=== PATIENT | female | born 1995 | race Caucasian/White ===

== ENCOUNTER 2023-11-04 13:49 | Outpatient (REF) | payer OTHER, SELFPAY ==
[2023-11-04 15:26] LABS: Internal Control Within Normal Limits; Strep A Antigen Screen Negative
== END 2023-11-04 13:50 | disposition home or self-care (01) ==
LOC: LAB 13:49
PROVIDERS: PCP Nurse Practitioner Family; Visit Provider Nurse Practitioner Family
DX: J02.9 Acute pharyngitis, unspecified (principal)
CPT/HCPCS: 87070; 87880

== ENCOUNTER 2023-12-07 20:09 | Outpatient (REF) | payer OTHER, SELFPAY ==
--- OUTSIDE RECORDS SUMMARY | 2023-12-07 20:15 | XMS_ITS | CCD ---
Author Organization [facility] Care Team Providers Care Administrative Tech Name Role Phone Gomez Card Primary Care Physician Jona Almeida Attending Unavailable ANIRUDH ., DR ROWELL Attending Unavailable ANIRUDH ., DR ROWELL Consulting Unavailable ANIRUDH ., DR ROWELL Admitting Unavailable JODI, LUZ Primary Care Unavailable BALDEMAR ., JUAN ALBERTO Consulting Unavailable BALDEMAR ., JUAN ALBERTO Admitting Unavailable BALDEMAR ., JUAN ALBERTO Attending Unavailable JODI, LUZ Primary Care Unavailable ANIRUDH ., DR ROWELL Attending Unavailable ANIRUDH ., DR ROWELL Consulting Unavailable ANIRUDH ., DR ROWELL Admitting Unavailable JODI, LUZ Primary Care Unavailable JODI, LUZ Attending Unavailable JODI, LUZ Consulting Unavailable JODI, LUZ Primary Care Unavailable JODI, LUZ Admitting Unavailable BALDEMAR ., JUAN ALBERTO Admitting Unavailable BALDEMAR ., JUAN ALBERTO Attending Unavailable JODI, LUZ Primary Care Unavailable BALDEMAR ., JUAN ALBERTO Consulting Unavailable ANIRUDH ., DR ROWELL Attending Unavailable ANIRUDH ., DR ROWELL Consulting Unavailable ANIRUDH ., DR ROWELL Admitting Unavailable JODI, LUZ Primary Care Unavailable YONG, DR KERI Garcia Consulting Unavailable ANIRUDH ., DR ROWELL Admitting Unavailable ANIRUDH ., DR ROWELL Attending Unavailable ANIRUDH ., DR ROWELL Consulting Unavailable JODI, LUZ Primary Care Unavailable BERONICA NGUYEN Consulting Unavailable EVITA TSE Consulting Unavailable BALDEMAR ., JUAN ALBERTO Admitting Unavailable GISELA TIDWELL Consulting Unavailable BALDEMAR ., JUAN ALBERTO Attending Unavailable JODI, LUZ Primary Care Unavailable BALDEMAR ., JUAN ALBERTO Consulting Unavailable BALDEMAR, JUAN ALBERTO Attending Unavailable Allergies Allergy Classification Reported Allergen(s) Allergy Type Date of Onset Reaction(s) Facility (2 sources) Sulfonamides (Antibiotic); Translations: [sulfa drugs] Drug allergy Weal (disorder) [facility] (1 source) Sulfonamides (Antibiotic) Drug allergy (disorder) 6 [facility] Repository Medications Current Medications Medication Drug Class(es) Dates Sig (Normalized) Sig (Original) brompheniramine maleate 0.4 mg/ml / dextromethorphan hydrobromide 2 mg/ml / pseudoephedrine hydrochloride 6 mg/ml oral solution (1 source) alpha-Adrenergic Agonist, Uncompetitive V-ozksft-W-aspartat e Receptor Antagonist, Sigma-1 Agonist Start: 05-29-2022 End: 06-05-2022 take 10 mL by mouth four times daily for cough and congestion Bromfed DM oral syrup 10 mL, Oral, QID for cough and congestion for 7 day(s), 280 mL, Refill(s) 0, [facility]/pharmacy #[id number], 163, cm, 05/29/22 10:46:00 EST, Height/Length Dosing, 71, kg, 05/29/22 10:46:00 EST, Weight Dosing Start Date: 05/29/22 Stop Date: 06/05/22 Status: Ordered oxybutynin chloride 5 mg oral tablet (1 source) Cholinergic Muscarinic Antagonist Start: 04-24-2020 oxybutynin 5 mg Tab See Instructions, PRN for urinary discomfort, 2 tab(s) Oral at night for bladder urgency, # 60 tab(s), Refills(s) 6, Pharmacy: [facility]/pharmacy #[id number], 162, cm, 04/24/20 10:24:00 EST, Height/Length Dosing, 71.5, kg, 04/24/20 10:24:00 EST, Weight Dosing Start Date: 04/24/20 Status: Ordered Problems Active Problems Problem Classification Problem Date Documented Date Episodic/Chronic Contraceptive and procreative management (8 sources) Encounter for sterilization; Translations: [Presence of (intrauterine) contraceptive device] Onset: 07-09-2022 Episodic Genitourinary symptoms and ill-defined conditions (1 source) Urge incontinence of urine 04-24-2020 Chronic Genitourinary symptoms and ill-defined conditions (3 sources) Increased frequency of urination; Translations: [Nocturia] 04-24-2020 Episodic Immunizations and screening for infectious disease (6 sources) Encounter for screening for infections with a predominantly sexual mode of transmission; Translations: [Encounter for screening for human papillomavirus (HPV)] Onset: 03-19-2022 Episodic Other diseases of bladder and urethra (1 source) Overactive bladder 04-24-2020 Chronic Other lower respiratory disease (1 source) Cough; Translations: [Cough, unspecified] Onset: 05-29-2022 Episodic Other upper respiratory infections (1 source) Acute upper respiratory infection; Translations: [Acute upper respiratory infection, unspecified] Onset: 05-29-2022 Episodic Substance-related disorders (2 sources) Smoker; Translations: [Nicotine dependence, other tobacco product, uncomplicated] Onset: 09-24-2022 05-29-2022 Chronic Comment on above: Added secondary to d ocumentation in Social History. Unclassified (3 sources) COUGH, UNSPECIFIED; Translations: [COUGH, UNSPECIFIED] Onset: 06-06-2022 Unclassified (1 source) CONTACT W/AND (SUSP) EXPOS COVID-19; Translations: [CONTACT W/AND (SUSP) EXPOS COVID-19] Onset: 06-06-2022 Viral infection (4 sources) Herpesviral infection of urogenital system, unspecified; Translations: [HERPESVIRAL INF UROGENITAL SYS UNS] Onset: 07-22-2022 Chronic Past or Other Problems Problem Classification Problem Date Documented Date Episodic/Chronic Other female genital disorders (5 sources) Other specified noninflammatory disorders of vagina; Translations: [OTH SPEC NONINFLAMMATORY D/O VAGINA] Onset: 03-19-2022 Episodic Other screening for suspected conditions (not mental disorders or infectious disease) (4 sources) Encounter for screening for malignant neoplasm of cervix; Translations: [ENC SCREENING MALIG NEOPLASM CERV] Onset: 03-17-2022 Episodic Ovarian cyst (1 source) Other ovarian cyst, left side; Translations: [OTHER OVARIAN CYST LEFT SIDE] Onset: 07-13-2022 Episodic Unclassified (1 source) COUGH, UNSPECIFIED; Translations: [COUGH, UNSPECIFIED] Onset: 06-01-2022 Results Test Name Value Interpretation Reference Range Facility CBC AUTO DIFFon 09-18-2022 BASO # 0.0 103/ul Normal 0.0-0.1 [facility] Comment on above: Performed By: #### C BC #### [facility] [address] [place] [address] Dr. Ventura Moe Basophils/100 WBC (Bld) 0.8 % Normal 0.2-2.0 [facility] Comment on above: Performed By: #### C BC #### [facility] [address] [place] [address] Dr. Ventura Moe EO # 0.1 103/ul Normal 0.0-0.7 [facility] Comment on above: Performed By: #### C BC #### [facility] [address] [place] [address] Dr. Ventura Moe Eosinophils/100 WBC (Bld) 1.2 % Normal 0.9-7.0 [facility] Comment on above: Performed By: #### C BC #### [facility] [address] [place] [address] Dr. Ventura Moe Erythrocyte distribution width (RBC) [Ratio] 14.0 % Normal 11.0-15.0 [facility] Comment on above: Performed By: #### C BC #### [facility] [address] [place] [address] Dr. Ventura Moe Hematocrit (Bld) [Volume fraction] 36.9 % Normal 36.0-48.0 [facility] Comment on above: Performed By: #### C BC #### [facility] [address] [place] [address] Dr. Ventura Moe Hemoglobin (Bld) [Mass/Vol] 12.4 g/dL Normal 12.0-16.0 [facility] Comment on above: Performed By: #### C BC #### [facility] [address] [place] [address] Dr. Ventura Moe IG # 0.01 10e3/ul Normal 0.00-0.03 [facility] Comment on above: Performed By: #### C BC #### [facility] [address] [place] [address] Dr. Ventura Moe IG % 0.2 % Normal 0.0-0.5 [facility] Comment on above: Performed By: #### C BC #### [facility] [address] [place] [address] Dr. Ventura Moe LYMPH # 2.0 103/ul Normal 1.2-3.8 [facility] Comment on above: Performed By: #### C BC #### [facility] [address] [place] [address] Dr. Ventura Moe Lymphocytes/100 WBC (Bld) 40.6 % Normal 20.5-60.0 [facility] Comment on above: Performed By: #### C BC #### [facility] [address] [place] [address] Dr. Ventura Moe MANUAL DIFF REQ NO Normal [facility] Comment on above: Performed By: #### C BC #### [facility] [address] [place] [address] Dr. Ventura Moe MCH (RBC) [Entitic mass] 29.2 pg Normal 26.7-34.0 [facility] Comment on above: Performed By: #### C BC #### [facility] [address] [place] [address] Dr. Ventura Moe MCHC (RBC) [Mass/Vol] 33.6 g/dL Normal 29.9-35.2 [facility] Comment on above: Performed By: #### C BC #### [facility] [address] [place] [address] Dr. Ventura Moe MCV (RBC) [Entitic vol] 87.0 fL Normal 81.0-99.0 [facility] Comment on above: Performed By: #### C BC #### [facility] [address] [place] [address] Dr. Ventura Moe MONO # 0.6 103/ul Normal 0.3-0.8 [facility] Comment on above: Performed By: #### C BC #### [facility] [address] [place] [address] Dr. Ventura Moe Monocytes/100 WBC (Bld) 12.4 % Critically high 1.7-12.0 [facility] Comment on above: Performed By: #### C BC #### [facility] [address] [place] [address] Dr. Ventura Moe NEUT # 2.2 103/ul Normal 1.4-6.5 [facility] Comment on above: Performed By: #### C BC #### [facility] [address] [place] [address] Dr. Ventura Moe Neutrophils/100 WBC (Bld) 44.8 % Normal 43.0-75.0 [facility] Comment on above: Performed By: #### C BC #### [facility] [address] [place] [address] Dr. Ventura Moe Platelet mean volume (Bld) [Entitic vol] 9.4 fL Critically low 9.5-13.5 [facility] Comment on above: Performed By: #### C BC #### [facility] [address] [place] [address] Dr. Ventura Moe PLT 266 103/ul Normal 150-450 [facility] Comment on above: Performed By: #### C BC #### [facility] [address] [place] [address] Dr. Ventura Moe RBC 4.24 106/ul Normal 4.20-5.40 [facility] Comment on above: Performed By: #### C BC #### [facility] [address] [place] [address] Dr. Ventura Moe WBC 4.9 103/ul Normal 4.0-11.0 [facility] Comment on above: Performed By: #### C BC #### [facility] [address] [place] [address] Dr. Ventura Moe PREG QUANT HCGon 09-18-2022 HCG QUANT <1 Normal [facility] Comment on above: Performed By: #### P REGQNT #### [facility] [address] [place] [address] Dr. Ventura Moe HCG RANGE SEE BELOW Normal [facility] Comment on above: Result Comment: 5-50 0.2-1 WEEK 50-500 1-2 WEEKS 100-5,000 2-3 WEEKS 500-10,000 3-4 WEEKS 1,000-50,000 4-5 WEEKS 10,000-100,000 5-6 WEEKS 15,000-200,000 6-8 WEEKS 10,000-100,000 2-3 MONTHS Performed By: #### P REGQNT #### [facility] [address] [address] [address] Ventura Moe XR CHEST 2 Von 09-07-2022 XR CHEST 2 V EXAMINATION: XR CHES T 2 V HISTORY: Electronic cigarette user ; preadmission testing COMPARISON: No relevant comparison available. FINDINGS: LUNGS: No significant pulmonary parenchymal abnormalities. VASCULATURE: No increased pulmonary vasculature. PLEURA: No pneumothorax, effusion, or pleural thickening. CARDIAC: No cardiomegaly or cardiac silhouette abnormality. MEDIASTINUM: No visible mass or adenopathy. BONES: No fracture or visible bone lesion. OTHER: Negative. IMPRESSION: 1. Normal examination. Electronically authenticated by: KERI BEACH Date: 2022-09-07 09:08 Normal [facility] CHLAMYDIA/GONOCOCCUS VINITA (SW AB/URINE/PAPon 08-03-2022 Chlamydia trachomatis, VINITA Negative Normal Negative [facility] Comment on above: Performed By: #### C T/NGNA #### [facility] [address] [place] [address] Dr. Ventura Moe Neisseria gonorrhoeae, VINITA Negative Normal Negative [facility] Comment on above: Performed By: #### C T/NGNA #### [facility] [address] [place] [address] Dr. Ventura Moe VAGINITIS/VAGINOSIS DNA PROB Charles 08-01-2022 Batool species Negative Normal Negative [facility] Comment on above: Performed By: #### V AGINT #### [facility] [address] [place] [address] Dr. Ventura Moe Gardnerella vaginalis Negative Normal Negative [facility] Comment on above: Performed By: #### V AGINT #### [facility] [address] [place] [address] Dr. Ventura Moe Trichomonas vaginalis Negative Normal Negative [facility] Comment on above: Performed By: #### V AGINT #### [facility] [address] [place] [address] Dr. Ventura Moe HERPES SIMPLEX VIRUS (HSV) C ULTUREon 07-25-2022 HSV Culture/Type Comment Abnormal [facility] Comment on above: Result Comment: Posi tive for Herpes simplex virus type-2. Typing was confirmed by monoclonal antibody microscopic immunofluorescence. Performed By: #### H SVCUL #### [facility] [address] [place] [address] Dr. Ventura Moe US PELVIS TRANSVAGon 023 US PELVIS TRANSVAG EXAMINATION: US PELV IS TRANSVAG HISTORY: IUD check COMPARISON: 08/12/2021 FINDINGS: Transvaginal images The uterus is normal in size, contour and myometrial echotexture measuring 8.6 x 3.9 x 4.6 cm., Anteverted, anteflexed. No focal myometrial mass The endometrium measures 5 mm, normal. Linear hyperechogenicity within the endometrial cavity consistent with normally positioned IUD The right ovary is normal in appearance measuring 2.6 x 1.4 x 1.7 cm. Normal color Doppler flow The left ovary measures 2.4 x 2.6 x 3.2 cm and contains an area of anechoic echogenicity measuring 2.1 cm, simple cyst. Normal color and Doppler flow IMPRESSION: Normal position of the IUD within the endometrial cavity 2.1 cm left ovarian simple cyst Electronically authenticated by: GISELA TIDWELL Date: 2022-07-09 15:34 Normal [facility] CHLAMYDIA/GONOCOCCUS VINITA (SW AB/URINE/PAPon 07-06-2022 Chlamydia trachomatis, VINITA Negative Normal Negative [facility] Comment on above: Performed By: #### V AGINT #### [facility] [address] [place] [address] Dr. Ventura Moe Neisseria gonorrhoeae, VINITA Negative Normal Negative [facility] Comment on above: Performed By: #### V AGINT #### [facility] [address] [place] [address] Dr. Ventura Moe VAGINITIS/VAGINOSIS DNA PROB Charles 07-04-2022 Batool species Negative Normal Negative [facility] Comment on above: Performed By: #### V AGINT #### [facility] [address] [place] [address] Dr. Ventura Moe Gardnerella vaginalis Positive Abnormal Negative [facility] Comment on above: Performed By: #### V AGINT #### [facility] [address] [place] [address] Dr. Ventura Moe Trichomonas vaginalis Negative Normal Negative [facility] Comment on above: Performed By: #### V AGINT #### [facility] [address] [place] [address] Dr. Ventura Moe Coding Summary.on 06-01-2022 Coding Summary. CD:[id number] Gh 0bWw+PGhlYWQ+KD3FMHLlW 35ylJHjeJ0RG4lHVY0FDCQ PSUJLOV7XLU4ztFR9XDzfL 2VybiAv PpvflKOiKW01HVz1CDB8hQ dtJAscuQ2tjIKcE7p2TaMx JK25wC39HJguMHPyUmE5Jh ZpbjsgbWFy Y5aoXhUpjWBbCfc+PHRhYm xlIHdpZHRoPScxMDAlJyBz yWqkEU5eQh0gTDSaVLGjuU xhcHNlOiBj n2lxOBHyKTtvPC9trAtgP6 SbzJY6ATNfw6c6Ju02tXF+ ARUlIES2dGqlIBepy155Fg Ynt4eyOBS1 yHLdXKutFQK2T21sd7S5UC BsWNYvYEE7sHR6iZ3psUdb tgjpG9NvkHPvCmQ1UJG0fH MqmB0hgVuv ssmemI1xHbz+J72AEV0VCT CLYK2EEzv9P0UhPugaaXB+ JK66YOOxNZ77eWDcfASxi8 hjdRb7WvZb WLHxZKW0eIzwETunp5SfUW WtH99ylOFvw0V2ZLUemQmj tQKbUhZuiDB5xS0vOAxwap gvu8zzzxax Dkvse5fyoi90dV31C73wBR uvVJNvTNX0JPMlSLBvcZbe ue0duZ5yIo0+UMlea4tcs6 pfuDc3PbKm KWMzfwCfzCfjCCR4u8KoGu 61L3IibMwcd5AcZpi4si90 iXLeg7D9iGC4PRlkNINhkW 8nLTpqZzL0 VUNrTvLbzH29nOXoLBaxRb 3etImkfIyxIL8zEHHnjoev BJNoyL3uMCGvxADlbScoKM 4wNTBpbjtm q392KeYbFSO3GZWdiLXxQ6 MdwI1rBcLjYUAeMKGjO7Ir gLMaTPvlS841OUiuSwM9OF ZyicXoM5Wy PSYmgUrcEcA6i5T6Nh4Mh7 JnhzzwOTW4IRezEDGtKcNv PjKtIjZ5W0ImJxw1DIGxpJ rtPP3wJ6Gq KSSzcmsgnqhkkTF4FWKvLZ CdqI55sUScBBfzLq7op4V0 a267ISUmBOXgmZ79Ch6jhH ogMTBwdCBU rT2xyhmle6nmmeoyJkZkMD TjNVt8PJa9PTCsgQnhSwCv PUZ7UhE7FEO0oLMrjY4rxX axictexT9w Oyc+H32sqI8vXFS8AIE7mn vvXOZiuvRhLJ36AU46T0Ra PjwvdGFibGU+PGRpdiBzdH pwAY3wHdWr d2dlx8LsSVazD4UqKOFbKB oyDbe6UKPqYRD0hUP9hZ0b EBCfXVitr3G6jNB5K8Vgwl Jjun6mb4ah VDTxHWokF96yxFYgh6Q5TU ZjbMA5LOQibZroNeGpnS87 Oyc+VJRoeAuen7TmEdbur1 xgh2koqJf9 TrOfEHTsljBghKloXYT0a1 YkVm26J46nDOdlDXVhHOKo NIXbKAQszYahrm2niE4dCf 8+PGNvbCB3 dKF7dB0zWXPpTdU6IPwyK3 86HdRliZRzRwuxq6qwe7hs cJx2NxUkSJXbxpYdcHjcQQ U5t6JjQr78 K68nJGcsNREjVSWxBCGxGW OqxOwwtn9lwX3eSp7+PC9j t3oete36fZ41wAI+PHRkIH S1gHswNMpv XPLlmK5pQJxuOrD5TYYyFg CzuO59vUInLGhnNx9bnUeo gEhcQU0fHEFaczshv663Ju Mfo8xoMKEq mUMbXLgtESD8L82bu8Q5FL NfBTBeAQW5vJM5mY7gwObk bjogbGVmdDsgdmVydGljYW veDAwmI923 IHRvcDsnPlBhdGllbnQgTm OdYPh1X3QzMzm6NBWczQac LN5rtBHdIAqeMl1ccMevmX uxKW7sOBAa aagjj867FxFtt3fhJXXmlX ZiDRllDQT6I41mz2Y5FMZx ZZYuDOG9zPR3aW8zsMyfgf ogbGVmdDsg iiXuqYqhMYlcFPvfT448AU RvcDsnPkJpcnRoIERhdGU6 OH41XC48kJGir6I1eLO6U8 BhZGRpbmct wojmiAQ0XHObCHMwhM19Gh 7mwCldZr8bFIKwUBC9LSVr fWWfG4XpkR7iQlCkLSWgXA IfM6ZxcHCy LUmzB169XHnsJxV4EWLqzn PjP2ZuPTSrnEwxBoJ3p7Z6 Jf0BB1F9FZ25TI34uGJxo6 L4qOQ5L2Om DXByssanwgrriPC1UAUwPW UgoC64Ua6syJnsCh4sHUVp QRL9WIYwjLHsG5DdrE8oDu AjMDAwMDAw J4CutMYlPHtxT323XRkmWp C4CLRiygYzI1EhBUHhpMxa CqH3b3P8Ar0HLHi6FM22YH 14dFPtj8B2 gHK2I6RoMRJoobxdogwxrA W1SDUhTDGdrW29Ys0wfNzj Dz1rFKLgLII2GGRfcUGgW3 DrqG9oMlCa QHMhAQAgO8MynWLuWEztQ5 97KDawInI0SUCpajClY1Uz PMBoiEdaHzW2n3S4Lq8VZW LfXO48CKT7 vFS6QB46GY63M0OpTtibaH FibGU+PHRhYmxlIHdpZHRo SBzxETRwWxWjzFvgIY3jJe 9yZGVyLWNv zQxiiLUtPtKce5ulMIXdYY owBB4nhJfsO9WgjTQ8MVRl n9q9Dt94H47bA3DikIK+PG PbmTZ3dUB7 yH0sTdShWqO4BQisW422Ec BqhKMkAivcr5ncv1jcoLt8 UwT0BQJkwoBnkNwnYZL9h6 JaXf45O87n IHdpZHRoPSIxNSUiIHZhbG hbnz9msA1mIa8+PGNvbCB3 yLT6qE7lMiZwHiI6TVyaH6 49InRvcCIv Fzibn2lpt8pduFz5KzOpGE SlooHmnSocFSR4u6WcEn81 Z6UlyNatj7VvUkb7pk79eL Tez5H1kRM6 Q3KfRLSkiofgcNYgnWcvZX 9qOUJybsrcSEAexI1uHKTb E2f1FqVyWmZ9ETlfR8Mjvt J3FWTgdUYf JFhsGLH0V41vj4Y2FZYfEY LwCWD4iHX9jI0nvEvnuakb bGVmdDsgdmVydGljYWwtYW rxB549QZXt aFeoRWHgkM6oDLLbwXLwxL sjAE3eQMWjtvtoGbPFBDVA LLUSHLVKJgl4P1LnUzh8UZ KweFstDO5b tUWtHIzxQb7ihEmbiCfbUR 7pOVDodwhgTCQbsI5qVOGx lVMbfRnxCN0wERUncmdhk9 12HnNdMQM8 CBYwzYEpR4XpfU2eVaIuJI PsWZXcD8OgwQGmNGtvQ678 ASdiSzE1VTSjxeQbI6TvSQ FsaWduOiB0 k9O9Jk4kHj5mSS9eIRpeHI 42KT42eBLpw7C4cSH8E4Qk QYFzwmmcufjyfME7KVDwCZ CpuN66cSSe ZQqeMr3tp3U0y990GUXzWD ExnG22Iu3ceHpgGMOmtBTQ qQ7jntibi3xqacveXjVuET VkUNu6WKq6 XLIceOfnLtFgWDM1ZhT3MA C9zHLczP9ffOipghpvbV9q Oyc+WmogNJGaifR7Q3OsEs b8JWDvmAeg OF0imJUeZIsiSt6rrWomxV xwGV8pWCYqbzxwPRUomL5z ADVmrXYplIsyGG9xKOFxky wbg284CuGp OUJ7BKBwgMJdM3EwgM2eNu ZsTELwLVLdT8QvwQHgEBxf U518SYkcZlU4WFRxagQjA1 FsLWFsaWdu LlH9k9J5Vj2LGQ0bgJF6Y9 FrMtt2AZCcfRmaGI9veWMh FRcqQu5mcAmtwQlfEQ2uKW BpbjtwYWRk bF1vXQEanUOqiHmnHD1gWZ Xvgfmir160NfUzSQZ3VTCe gNGfP7EkoZ5fMrRtOWFqIC OtJ5UenWWv HNlbT419SBdiApB8VYIfsg UiS9FlVRSisCbmGzE9t3A1 Ew7KqKXwX5XcA6l9H6ZzRq wvdHI+PC90 WLMnIB59uARbyMMtt0sljN x5NxRlCKJbNPF7sQdoEIia q0PeUZFqV59mnEJvx9Y8UD NvbGxhcHNl GuDxaMC5uY9wYOcnkqgvf3 ymspntUcfnv2znfp59pU62 V87dNKjpUEEdTIXyQSXdNV ElhJijwh7j wS6mNh4+PIZpyCJ8sRN3kW 1kRtDuUaS4AKshJ767PjIy wSEkBlwco1ayu9rvyRt6Yz IwJSIgdmFs jMklSIW9o0SdLt01Z80yYO dpZHRoPSIyMCUiIHZhbGln fx8drX0lHw5+FZ7nn7hbte 85tM97pKU+ CWBdXMH3gIfvJYbwBAVlvK 6jCLhhVwY6IFXbAnQkiB57 aQWnSMlqXd8meXegeJnsRT 4wNTBpbjtm w367BoSbm7suCGPcpSItAO tdWFA7W94gy6K7YGTqITGd UZP3qVA6xD4fnGjgvibsnQ VmdDsgdmVy pGixAArmLApvM404IYPzqU dyTkOtiLVvG1dblmPMYK4x OjwvdGQ+OZIqDKH8aMdsWR uiXPDkpN0h BFKbK9x2RoCjQyT9EWmdT5 XkboC0YZBheRAqPTRrlGAU eO2uvznzp0jtshlzTmYkJW CkLQi4RFl4 ZKZeeSafRyZbFFH5MvF9ZO U8iADiqZ0lvXiogxvbnZ6k Oyc+RklOOjwvdGQ+PHRkIH K4bMjmMZqt IFFvyX5rOGEmG0l9RsLaTq Q4LPmtR5HicrD7NFOmrILd FKJxgGKPmZ8aonhvr1phyd ogIzAwMDAw DFk2QZd1WINvxZzuXeOiDU M2XqB4RKF2tWKdlA1kfEah adimnH8zCrj+TVJOOjwvdG Q+PHRkIHN0 hOhaZDnlOOQboD6gDOMuY7 p6BnPyDzD2XHndH8EysoS6 WYKviUWpAHJwtZBAoQ4bhp jfp1atuxqa TyEvTFVnGWl6JWk7GTHmrW gxNfBfJQO1NcQ3WXC2rDHb yP6giLmatvbfiF0kHob+UG W0LNW5ZE23 KL86V1KhWoeuvAJeyYX+PH RhYmxlIHdpZHRoPScxMDAl YoVfuBspYZ2uRa4cFMQtHZ NvbGxhcHNl OiBj (more content not included)... Normal [facility] Covid-19 PCR ([facility])on 05-21 SARS-CoV-2 (COVID-19) RNA VINITA+probe Ql (Unsp spec) Not detected Normal NOT DETECTED [facility] Comment on above: Result Comment: This test is not yet approved or cleared by the [place] FDA. When there are no FDA-approved or cleared tests available, and other criteria are met, FDA can make tests available under an emergency access mechanism called an Emergency Use Authorization (EUA). The EUA for this test is supported by the [employer] of Health and Human Service's (HHS's) declaration that circumstances exist to justify the emergency use of in vitro diagnostics for the detection and/or diagnosis of the virus that causes COVID-19. This EUA will remain in effect (meaning this test can be used) for the duration of the COVID-19 declaration justifying emergency of IVDs, unless it is terminated or revoked by FDA (after which the test may no longer be used). When diagnostic testing is negative, the possibility of a false negative should be considered in the context of a patient's recent exposures and the presence of clinical signs and symptoms consistent with SARS-CoV-2. Performed By: #### [facility] #### [facility] [address] [place] [address] Dr. Ventura Moe ED Note-Physicianon 06-01-20 ED Note-Physician Basic Information Time Seen: Alejandro MCGINNISSkip 05/29/2022 10:42 Chief Complaint Mom reports congestion and coughing up phlegm since last night. Denies fever. History of Present Illness 26-year-old female comes to the ED for evaluation of cough and congestion. She presents with her children have similar symptoms. She states they were seen at [facility] recently where one of them has a positive for influenza. They have had continued cough. No fevers. No nausea or vomiting. No acute chest pain or shortness of breath. No prior treatments. Review of Systems A 10 point review of systems is negative except as noted above. Medical and Surgical History: Reviewed and noted Social history: Lives at home Tobacco: Current Physical Exam Vitals & Measurements T: 36.7 ?C(Oral) HR: 95(Peripheral) RR: 18 BP: 123/82 SpO2: 98% HT: 163 cm WT: 71 kg BMI: 26.72 Nurses notes and vital signs reviewed and patient is not hypoxic. General: Well-appearing, does not appear ill Skin: Warm, dry. Head: Atraumatic. Neck: No JVD. Eye: Normal conjunctiva. Ears, Nose, Mouth, and Throat: Sinus congestion, no difficulty with speaking or swallowing Cardiovascular: Not tachycardic Chest wall: Respiratory: Respirations are nonlabored. Back: Normal range of motion. Musculoskeletal: Normal ROM with no gross deformity. Gastrointestinal: Urological: Neurological: Awake and alert. No focal deficits. Follows commands. Psychiatric: Cooperative. Medical Decision Making Patient overall well-appearing and nontoxic exam. Chest x-ray with no acute infiltrates. Patient with likely influenza. Treated with Bromfed-DM. Discharged home with PCP follow-up. Patient was encouraged to return to the ED if symptoms worsen or change. Assessment/Plan Cough (R05.9: Cough, unspecified) Upper respiratory infection (J06.9: Acute upper respiratory infection, unspecified) Orders: brompheniramine/dextro methorphan/PSE, 10 mL, Oral, QID for cough and congestion for 7 day(s), 280 mL, Refill(s) 0, [id number], 163, cm, 05/29/22 10:46:00 EST, Height/Length Dosing, 71, kg, 05/29/22 10:46:00 EST, Weight Dosing XR Chest 2 Views Disposition Plan Patient Discharge Condition Disposition: Discharged home Condition: Improved and stable Counseled: Patient and/or family were counseled to workup, results, treatment plan and follow-up recommendations Discharge Prescription List Prescriptions Bromfed DM oral syrup, 10 mL, Oral, QID, PRN Follow-up With When Contact Information Gomez Card In 3 days 06/01/2022 EST [address] [id number]- Business (1) Additional Instructions: Patient Education Upper Respiratory Infection, Adult Influenza, Adult Attestation Patient seen and evaluated by the physician pharmacy technician assistant. Attending physician was present in the emergency department and supervised care. This visit was performed by both the physician and an APC. I performed all aspects of the MDM as documented. This report was transcribed using voice recognition software. Every effort was made to ensure accuracy, however, inadvertently computerized advanced clinical specialist mistakes may be present. Appropriate healthcare PPE was used in evaluating this patient. The patient was placed in a mask. The healthcare provider was wearing mask, gloves, and utilizing proper hand hygiene. All equipment was properly cleansed. Problem List/Past Medical History Ongoing Frequency of urination Nocturia Overactive bladder Smoker Urge incontinence Weak urine stream Historical No qualifying data Procedure/Surgical History of child, Hemorrhoids. Medications Inpatient No active inpatient medications Home Bromfed DM oral syrup, 10 mL, Oral, QID, PRN oxybutynin 5 mg Tab, See Instructions, PRN, 6 refills Allergies sulfa drugs (Hives) Social History Alcohol - Denies Alcohol Use, 05/29/2022 Substance Abuse - Denies Substance Abuse, 05/29/2022 Tobacco - High Risk, 05/29/2022 5-9 cigarettes (between 1/4 to 1/2 pack)/day in last 30 days Tobacco Use:. Yes, 04/24/2020 Family History Arthritis: Father. Heart disease: Grandparent. Hyperlipidemia: Father and Grandparent. Migraine: Mother and Father. Primary malignant neoplasm of bone: Uncle. Primary malignant neoplasm of lung: Grandparent. Stroke: Uncle. Lab Results No qualifying data available. Diagnostic Results XR Chest 2 Views 05/29/22 11:38:43 NEGATIVE: No infiltrate, mass or other acute cardiopulmonary abnormality Read By: Skip Allen PA-C 05/29/22 11:38:22 IMPRESSION: NO ACTIVE LUNG DISEASE. EXAM: XR Chest 2 Views CLINICAL HISTORY: Shortness of breath Cough COMPARISONS: None FINDINGS: The heart, mediastinum and pulmonary vasculature are within normal limits. Visualized lung tyler are clear. Bones unremarkable. Signed By: Ashly BELTRAN, Ruel [facility] Comment on above: Result Comment: Elec tronically Signed By: Skip Allen PA-C\.br\Date and Time Signed: 05/29/22 11:47 EST\.br\Electronically Co-Signed By: Joan Almeida DO\.br\Date and Time Co-Signed: 06/01/22 07:33 EST INFLUENZA A AND B AGon 06-01 INFLUBNEGH SEE BELOW Normal [facility] Comment on above: Result Comment: Nega tive for Flu B protein antigen. Infection due to Flu B cannot be ruled out. Flu B antigen in the sample may be below the detection limit of the test. Performed By: #### V AGINT #### [facility] [address] [place] [address] Dr. Ventura Moe INFLUENZA A AG Positive Abnormal NEGATIVE SEE COMMENT [facility] Comment on above: Performed By: #### V AGINT #### [facility] [address] [place] [address] Dr. Ventura Moe INFLUENZA B AG Negative Normal NEGATIVE SEE COMMENT [facility] Comment on above: Performed By: #### V AGINT #### [facility] [address] [place] [address] Dr. Ventura Moe INFLUPOSH SEE BELOW Normal [facility] Comment on above: Result Comment: NOTE : Live attenuated influenzae vaccine viruses can cause a positive result for a rapid influenza diagnostic test if administered up to 7 days prior to rapid testing. Performed By: #### V AGINT #### [facility] [address] [place] [address] Dr. Ventura Moe INTERNAL CONTROLS Within Normal Limits Normal Wi thin Normal Limits [facility] Comment on above: Performed By: #### V AGINT #### [facility] [address] [place] [address] Dr. Ventura Moe Consent for Treatmenton Consent for Treatment [id number] 0CD:127 Normal [facility] Discharge Instructionson Discharge Instructions [id number] 0CD:127 Normal [facility] ED Clinical Summaryon 2021 ED Clinical Summary [address] [address] ED Clinical Summary Person Information [facility]: [facility] Age[facility] 26 Years : 1995 Sex: Female Language: Slovak PCP: Gomez Card MD Marital Status: Single Visit Id: Visit Reason: Cough; Sinus Pain/Congestion; SICK Speciality: Acuity: 4 Enc Type: Emergency Med Service: Emergency Arrival: 05/29/2022 10:40:59 Discharge: 05/29/2022 12:00:23 LOS: 000 01:20 Checkin: 05/29/2022 10:40:59 Checkout: 05/29/2022 12:00:23 Dispo Type: Home (Routine DC) EVENTS: Event Name Event Status Request Date/Time Start Date/Time Complete Date/Time Arrive Complete 05/29/2022 10:40:59 05/29/2022 10:40:59 05/29/2022 10:40:59 Document Home Meds Request 05/29/2022 10:40:59 Triage Complete 05/29/2022 10:40:59 05/29/2022 10:46:14 05/29/2022 10:46:14 Dr Exam Complete 05/29/2022 10:42:08 05/29/2022 10:42:08 05/29/2022 10:42:08 Registration Complete 05/29/2022 10:42:08 05/29/2022 10:46:46 05/29/2022 11:00:08 Bed Assign Complete 05/29/2022 10:46:46 05/29/2022 10:46:46 05/29/2022 10:46:46 RN Exam Complete 05/29/2022 10:46:46 05/29/2022 10:55:24 05/29/2022 10:55:24 Dr Exam Complete 05/29/2022 10:48:46 05/29/2022 10:48:46 05/29/2022 10:48:46 X-Ray Complete 05/29/2022 10:49:04 05/29/2022 11:00:54 05/29/2022 11:19:19 Reg Complete Request 05/29/2022 11:00:08 Reg Bed Request Complete 05/29/2022 11:00:08 05/29/2022 11:00:08 05/29/2022 11:00:08 Wet Read Request 05/29/2022 11:19:19 Discharge Complete 05/29/2022 11:41:02 05/29/2022 12:00:28 05/29/2022 12:00:28 Transfer Complete 05/29/2022 12:00:28 05/29/2022 12:00:28 05/29/2022 12:00:28 ADDRESS: [address] [place] [address] DR SHAYLA Mckay [facility] [phone] PHYS DOC NOTES: MEDICAL INFORMATION: Prescriptions Given: New Medications [id number], [address], [place] [id number], [phone] brompheniramine/dextro methorphan/PSE (Bromfed DM oral syrup) 10 Milliliter By Mouth 4 times a day as needed for cough and congestion for 7 Days. Refills: 0. Medications to Continue with No Changes Other Medications oxybutynin (oxybutynin 5 mg Tab) 2 tab(s) Oral at night for bladder urgency; as needed for urinary discomfort. Refills: 6. PATIENT EDUCATION INFORMATION: Instructions: Upper Respiratory Infection, Adult; Influenza, Adult Follow up: With: Address: When: Gomez Card [facility] [facility], [place] [address] Business (1) In 3 days 06/01/2022 DIAGNOSIS: Cough; Upper respiratory infection Normal [facility] ED Patient Education Noteon 05-29-2022 ED Patient Education Note Infectious Disease Upper Respiratory Infection, Adult An upper respiratory infection (URI) is a common viral infection of the nose, throat, and upper air passages that lead to the lungs. The most common type of URI is the common cold. URIs usually get better on their own, without medical treatment. What are the causes? A URI is caused by a virus. You may catch a virus by: ? Breathing in droplets from an infected person's cough or sneeze. ? Touching something that has been exposed to the virus (contaminated) and then touching your mouth, nose, or eyes. What increases the risk? You are more likely to get a URI if: ? You are very young or very old. ? It is rhonda or winter. ? You have close contact with others, such as at a daycare, school, or health care facility. ? You smoke. ? You have long-term (chronic) heart or lung disease. ? You have a weakened disease-fighting (immune) system. ? You have nasal allergies or asthma. ? You are experiencing a lot of stress. ? You work in an area that has poor air circulation. ? You have poor nutrition. What are the signs or symptoms? A URI usually involves some of the following symptoms: ? Runny or stuffy (congested) nose. ? Sneezing. ? Cough. ? Sore throat. ? Headache. ? Fatigue. ? Fever. ? Loss of appetite. ? Pain in your forehead, behind your eyes, and over your cheekbones (sinus pain). ? Muscle aches. ? Redness or irritation of the eyes. ? Pressure in the ears or face. How is this diagnosed? This condition may be diagnosed based on your medical history and symptoms, and a physical exam. Your health care provider may use a cotton swab to take a mucus sample from your nose (nasal swab). This sample can be tested to determine what virus is causing the illness. How is this treated? URIs usually get better on their own within 7?10 days. You can take steps at home to relieve your symptoms. Medicines cannot cure URIs, but your health care provider may recommend certain medicines to help relieve symptoms, such as: ? Eaya-uuk-ohybnne cold medicines. ? Cough suppressants. Coughing is a type of defense against infection that helps to clear the respiratory system, so take these medicines only as recommended by your health care provider. ? Fever-reducing medicines. Follow these instructions at home: Activity ? Rest as needed. ? If you have a fever, stay home from work or school until your fever is gone or until your health care provider says you are no longer contagious. Your health care provider may have you wear a face mask to prevent your infection from spreading. Relieving symptoms ? Gargle with a salt-water mixture 3?4 times a day or as needed. To make a salt-water mixture, completely dissolve ??1 tsp of salt in 1 cup of warm water. ? Use a cool-mist humidifier to add moisture to the air. This can help you breathe more easily. Eating and drinking ? Drink enough fluid to keep your urine pale yellow. ? Eat soups and other clear broths. General instructions ? Take dhst-wej-wxyrugv and prescription medicines only as told by your health care provider. These include cold medicines, fever reducers, and cough suppressants. ? Do not use any products that contain nicotine or tobacco, such as cigarettes and e-cigarettes. If you need help quitting, ask your health care provider. ? Stay away from secondhand smoke. ? Stay up to date on all immunizations, including the yearly (annual) flu vaccine. ? Keep all follow-up visits as told by your health care provider. This is important. How to prevent the spread of infection to others ? URIs can be passed from person to person (are contagious). To prevent the infection from spreading: ? Wash your hands often with soap and water. If soap and water are not available, use hand tarring machine operator. ? Avoid touching your mouth, face, eyes, or nose. ? Cough or sneeze into a tissue or your sleeve or elbow instead of into your hand or into the air. Contact a health care provider if: ? You are getting worse instead of better. ? You have a fever or chills. ? Your mucus is brown or red. ? You have yellow or brown discharge coming from your nose. ? You have pain in your face, especially when you bend forward. ? You have swollen neck glands. ? You have pain while swallowing. ? You have white areas in the back of your throat. Get help right away if: ? You have shortness of breath that gets worse. ? You have severe or persistent: ? Headache. ? Ear pain. ? Sinus pain. ? Chest pain. ? You have chronic lung disease along with any of the following: ? Wheezing. ? Prolonged cough. ? Coughing up blood. ? A change in your usual mucus. ? You have a stiff neck. ? You have changes in your: ? Vision. ? Hearing. ? Thinking. ? Mood. Summary ? An upper respiratory infection (URI) is a common infecti (more content not included)... Normal [facility] ED Patient Summaryon 022 ED Patient Summary [address] [address] Patient Discharge Instructions Person Information Name: MICHAEL SEQUEIRA Age: 26 Years Arrival Date: 05/29/2022 10:40:59 Discharge Diagnosis: Cough; Upper respiratory infection Primary Care Physician: Gomez Card MD Provider Information Primary Provider: Jona Almeida DO [address] [employer] [address] Sql Developer:Skip Allen PA-C The exam and treatment you received in the Emergency Department were for an urgent problem and are not intended as complete care. It is important that you follow up with a doctor, nurse practitioner, or physician?s pharmacy technician assistant for ongoing care. If your symptoms become worse or you do not improve as expected and you are unable to reach your usual health care provider, you should return to the Emergency Department. We are available 24 hours a day. MICHAEL SEQUEIRA has been given the following list of patient education materials, prescriptions and follow-up instructions: Follow-up Instructions: With: Address: When: Gomez Savageasad [address] [place] [address], [place] [address] Business (1) In 3 days 06/01/2022 In the event that this physician does not participate in your insurance network, please consult with your insurance company to find a nearby participating provider. Patient Education Materials: Upper Respiratory Infection, Adult; Influenza, Adult A MESSAGE TO ALL PATIENTS REGARDING OPIOIDS PRESCRIPTION OPIOIDS: WHAT YOU NEED TO KNOW Prescription opioids can be used to help relieve ztjmsseo-hu-knqrbb pain and are often prescribed following a surgery or injury, or for certain health conditions. These medications can be an important part of the treatment but also come with serious risks. It is important to work with your healthcare provider to make sure you are getting the safest, most effective care. WHAT ARE THE RISKS AND SIDE EFFECTS OF OPIOID USE? Prescription opioids carry serious risks of addiction and overdose, especially with prolonged use. An opioid overdose, often marked by slowed breathing, can cause sudden . The use of prescription opioids can have a number of side effects as well, even when taken as directed: ? Tolerance?meaning you might need to take more of the medication for the same pain relief ? Physical dependence?meaning you have symptoms of withdrawal when a medication is stopped ? Increased sensitivity to pain ? Constipation ? Nausea, vomiting, and dry mouth ? Sleepiness and dizziness ? Confusion ? Depression ? Low levels of testosterone that can result in lower sex drive, energy, and strength ? Itching and sweating RISKS ARE GREATER WITH: ? History of drug misuse, substance use disorder, or overdose ? Mental health conditions (such as depression or anxiety) ? Sleep apnea ? Older age (65 years and older) ? Avoid alcohol while taking prescription opioids. Also, unless specifically advised by your health care provider, medications to avoid include: ? Benzodiazepines (such as Xanax or Valium) ? Muscle relaxants (such as Soma or Flexeril) ? Hypnotics (such as Ambien or Lunesta) ? Other prescription opioids KNOW YOUR OPTIONS Talk to your health care provider about ways to manage your pain that don?t involve prescription opioids. Some of these options may actually work better and have fewer risks and side effects. Options may include: ? Pain relievers such as acetaminophen, ibuprofen, and naproxen ? Some medication that are also used for depression or seizures ? Physical therapy and exercise ? Cognitive behavioral therapy, a psychological, goal-directed approach, in which patients learn how to modify physical, behavioral, and emotional triggers of pain and stress. IF YOU ARE PRESCRIBED OPIOIDS FOR PAIN: ? Never take opioids in greater amounts or more often than prescribed. ? Follow up with your primary health care provider. o Work together to create a plan on how to manage your pain. o Talk about ways to help manage your pain that don?t involve prescription opioids. o Talk about any and all concerns and side effects. ? Help prevent misuse and abuse o Never sell or share prescription opioids. o Never use another person?s prescription opioids. ? Store prescription opioids in a secure place and out of reach of others (this may include visitors, children, friends, and family). ? Safely dispose of unused prescription opioids: Find your community drug take-back program or your pharmacy mail-back program, or flush them down the toilet, following guidance from the Food and Drug Administration (www.fda.gov/Drugs/Res ourcesForYou). ? Visit www.cdc.gov/drugoverdo se to learn about the risks of opioids abuse and overdose. ? If you believe you may be struggling with addiction, tell your health post acute care nurse practitioner and ask for guidance or call [facility] Help (more content not included)... Normal [facility] XR Chest 2 Viewson 2 XR Chest 2 Views Exam Date/Time: 05/29/2022 11:19 EST Reason for Exam: Cough Report IMPRESSION: NO ACTIVE LUNG DISEASE. EXAM: XR Chest 2 Views CLINICAL HISTORY: Shortness of breath Cough COMPARISONS: None FINDINGS: The heart, mediastinum and pulmonary vasculature are within normal limits. Visualized lung tyler are clear. Bones unremarkable. FINAL REPORT Dictated: 05/29/2022 11:35 am Ruel Limon MD Signed (Electronic Signature): 05/29/2022 11:35 am Signed by: Ruel Limon MD Transcribed by: SISSY Technologist: JESUS Normal [facility] PAP ACOG PANEL 2: 21 to 29on 03-25-2022 . . Normal [facility] Comment on above: Performed By: #### [id number] #### [facility] [address] [address] [address] Ventura Moe Age Gdln ACOG Testing - [facility] Comment on above: Performed By: #### 4 [id number] #### [facility] [address] [address] [address] Ventura Moe DIAGNOSIS: Comment [facility] Comment on above: Result Comment: NEGA TIVE FOR INTRAEPITHELIAL LESION OR MALIGNANCY. Performed By: #### 4 [id number] #### [facility] [address] [address] [address] Ventura Moe Methodology: Comment [facility] Comment on above: Result Comment: This liquid based ThinPrep(R) pap test was screened with the use of an image guided system. Performed By: #### 4 [id number] #### [facility] [address] [place] [address] Dr. Ventura Moe Note: Comment Normal [facility] Comment on above: Result Comment: The Pap smear is a screening test designed to aid in the detection of premalignant and malignant conditions of the uterine cervix. It is not a diagnostic procedure and should not be used as the sole means of detecting cervical cancer. Both false-positive and false-negative reports do occur. . Performed By: #### 4 [id number] #### [facility] [address] [place] [address] Dr. Ventura Moe Performed by: Comment Normal [facility] Comment on above: Result Comment: Joshua Callahan, Magnetic Tester (ASCP) Performed By: #### 4 [id number] #### [facility] [address] [place] [address] Dr. Ventura Moe Reflex Criteria: Comment Normal [facility] Comment on above: Result Comment: The HPV DNA reflex criteria were not met with this specimen result therefore, no HPV testing was performed. . Performed By: #### 4 [id number] #### [facility] [address] [place] [address] Dr. Ventura Moe Specimen adequacy: Comment Normal [facility] Comment on above: Result Comment: Sati sfactory for evaluation. Endocervical and/or squamous metaplastic cells (endocervical component) are present. Performed By: #### 4 [id number] #### [facility] [address] [place] [address] Dr. Ventura Moe CHLAMYDIA/GONOCOCCUS VINITA (SW AB/URINE/PAPon 03-20-2022 Chlamydia trachomatis, VINITA Negative Normal Negative [facility] Comment on above: Performed By: #### C T/NGNA #### [facility] [address] [place] [address] Dr. Ventura Moe Neisseria gonorrhoeae, VINITA Negative Normal Negative [facility] Comment on above: Performed By: #### C T/NGNA #### [facility] [address] [place], [place] [id number] Dr. Ventura Moe VAGINITIS/VAGINOSIS DNA PROB Charles 03-19-2022 Batool species Negative Normal Negative [facility] Comment on above: Performed By: #### V AGINT #### [facility] [address] [place] [address] Dr. Ventura Moe Gardnerella vaginalis Positive Abnormal Negative [facility] Comment on above: Performed By: #### V AGINT #### [facility] [address] [address] [address] Ventura Moe Trichomonas vaginalis Negative Normal Negative [facility] Comment on above: Performed By: #### V AGINT #### [facility] [address] [place] [address] Dr. Ventura Moe Vital Signs Date Time Vital Sign Value Performing Clinician Faci lity 05-29-2022 10:44-0500 Body temperature 98.06 [degF] Jona [employer] [facility] 05-29-2022 10:44-0500 Diastolic blood pressure 82 mm[Hg] [email or web address] [facility] 05-29-2022 10:44-0500 Heart rate 95 /min [email or web address] [facility] 05-29-2022 10:44-0500 Respiratory rate 18 /min [email or web address] [facility] 05-29-2022 10:44-0500 SaO2% (BldA) [Mass fraction] 98 % [email or web address] [facility] 05-29-2022 10:44-0500 Systolic blood pressure 123 mm[Hg] Jona [employer] [facility] Encounters Encounter Date Encounter Type Care Provider Facility Start: 11-03-2023 End: 11-03-2023 ambulatory JUAN ALBERTO MCDERMOTT Not Available Start: 09-18-2022 End: 09-18-[address] SORIN AGUILAR . Facility: Start: 09-12-2022 Encounter for preprocedural respiratory examination DR SORIN AGUILAR . [facility] Start: 09-07-2022 End: 09-08-[address] SORIN AGUILAR . Facility:[facility] Start: 09-07-2022 End: 09-08-2022 Encounter for preprocedural respiratory examination DR SORIN AGUILAR . Facility:[facility] Start: 07-30-2022 End: 07-30-2022 ambulatory JUAN ALBERTO MCDERMOTT . Facility:[facility] Start: 07-22-2022 End: 07-22-[address] SORIN AGUILAR . Facility:[facility] Start: 07-09-2022 End: 07-10-2022 ambulatory JUAN ALBERTO MCDERMOTT . Facility:[facility] Start: 07-02-2022 End: 07-02-2022 ambulatory JUAN ALBERTO MCDERMOTT . Facility: Start: 06-01-2022 End: 06-01-2022 ambulatory LUZ ZAPATA Facility: Start: 05-29-2022 End: 05-29-2022 Emergency department patient visit Jona Almeida Facility[place] [place] Start: 05-29-2022 End: 05-29-2022 Emergency department patient visit Jona Almeida [facility] Start: 03-17-2022 End: 03-17-[address] SORIN AGUILAR . Facility: Procedures Date Procedure Procedure Detail Performing Clinician of child (finding) Hakeem Almeida Hemorrhoids (disorder) Jona Almeida Payers Date Payer Category Payer Unknown [id number] 2.16.8 [id number] 1995 Unknown [id number] 2.16.84 [id number] 1995 Unknown [id number] 2.16.84 [id number] 1995 Unknown [id number] 2.16.84 [id number] 1993 Unknown [id number] 2.16.84 [id number] 1993 Unknown [id number] 2.16.84 [id number] 1993 Unknown [id number] 2.16.84 [id number] 1993 Unknown [id number] 2.16.84 [id number] 1993 Unknown [id number] 2.16.84 [id number] 1993 Unknown [id number] 2.16.84 [id number] 1959 Unknown [id number] Social History Date Type Detail Facility Start: 04-24-2020 Tobacco smoking status Light t obacco smoker (finding) [facility] Sex Assigned At Female [facility] Functional Status Date Assessment Result Facility 05-29-2022 Functional Status N/A [facility] Clinical Note 09-18-2022 Note Date & Type Note Facility 09-18-2022 Note OPERATIVE NOTE OPERATION DATE: 09/18/2022 PROCEDURE: Robotic assisted bilateral laparoscopic salpingectomy. PREOPERATIVE DIAGNOSIS: Desires permanent sterilization, multiparity. POSTOPERATIVE DIAGNOSIS: Desires permanent sterilization, multiparity. ANESTHESIA: General. SURGEON: Sorin Aguilar D.O. LOCKSTITCH FRONT EDGE TAPE SEWER: DAMIAN Pinto URINE OUTPUT: Yellow and clear. BLOOD LOSS: 5 mL. SPECIMEN: Bilateral tubes. FINDINGS: Normal appearing ovaries, uterus and tubes. PROCEDURE: The patient was taken back to the OR where she was prepped and draped in the normal sterile fashion after being placed in the dorsal lithotomy position, after being placed under general anesthesia without difficulty. A wet sponge stick was placed into the patient's vagina. Attention was then turned to the patient's abdomen, where a scalpel was used to make a small infraumbilical incision. The S retractors were then used to dissect the underlying layers until the fascia could be seen. The fascia was then grasped with Mariana clamps and tented up. A knife was then used to make a small incision to the fascia. The muscle was identified, at that time two sutures of #0 Vicryl on a GI needle was then used and placed through the fascia. The peritoneum was then identified and entered bluntly. The 10-4 Nadira was then placed into the patient's abdomen. This was confirmed with direct visualization of the bowel, using the laparoscope. The patient's abdomen was then insufflated using approximately 4 liters of CO2 gas. Survey of the patient's abdomen demonstrated normal appearing ovaries, uterus and tubes. A second and third lateral port, which was 7-8 in size and 5 mm in size, was then placed laterally after incision was made in the skin under direct visualization. The patient's tube on the patient's right side was identified. The tube was then tented up using a grasper. The LigaSure was used to transect and coagulate the mesosalpinx from the fimbriated end to the insertion at the uterus; the tube was amputated and removed in its entirety. Excellent hemostasis was noted. This was performed on the contralateral side as well. The lateral ports were then removed under direct visualization with excellent hemostasis. The abdomen was desufflated. All instruments were removed from the patient's abdomen. The fascia was closed using the #0 Vicryl on GI needle. The skin was closed using 4-0 Vicryl subcuticularly. All instruments were removed from the patient's vagina as well. The patient was taken out of the dorsal lithotomy position and placed in the supine position and taken to recovery in stable condition. Sponge, lap and needle counts were correct x2. [facility] Discharge instructions 05-29-2022 Note Date & Type Note Facility 05-29-2022 Hospital Discharg e instructions Patient Education 05/29/2022 12:00:28 Upper Respiratory Infection, Adult Upper Respiratory Infection, Adult An upper respiratory infection (URI) is a common viral infection of the nose, throat, and upper air passages that lead to the lungs. The most common type of URI is the common cold. URIs usually get better on their own, without medical treatment. What are the causes? A URI is caused by a virus. You may catch a virus by: Breathing in droplets from an infected person's cough or sneeze. Touching something that has been exposed to the virus (contaminated) and then touching your mouth, nose, or eyes. What increases the risk? You are more likely to get a URI if: You are very young or very old. It is rhonda or winter. You have close contact with others, such as at a daycare, school, or health care facility. You smoke. You have long-term (chronic) heart or lung disease. You have a weakened disease-fighting (immune) system. You have nasal allergies or asthma. You are experiencing a lot of stress. You work in an area that has poor air circulation. You have poor nutrition. What are the signs or symptoms? A URI usually involves some of the following symptoms: Runny or stuffy (congested) nose. Sneezing. Cough. Sore throat. Headache. Fatigue. Fever. Loss of appetite. Pain in your forehead, behind your eyes, and over your cheekbones (sinus pain). Muscle aches. Redness or irritation of the eyes. Pressure in the ears or face. How is this diagnosed? This condition may be diagnosed based on your medical history and symptoms, and a physical exam. Your health care provider may use a cotton swab to take a mucus sample from your nose (nasal swab). This sample can be tested to determine what virus is causing the illness. How is this treated? URIs usually get better on their own within 7 10 days. You can take steps at home to relieve your symptoms. Medicines cannot cure URIs, but your health care provider may recommend certain medicines to help relieve symptoms, such as: Njez-rwc-okmrkyy cold medicines. Cough suppressants. Coughing is a type of defense against infection that helps to clear the respiratory system, so take these medicines only as recommended by your health care provider. Fever-reducing medicines. Follow these instructions at home: Activity Rest as needed. If you have a fever, stay home from work or school until your fever is gone or until your health care provider says you are no longer contagious. Your health care provider may have you wear a face mask to prevent your infection from spreading. Relieving symptoms Gargle with a salt-water mixture 3 4 times a day or as needed. To make a salt-water mixture, completely dissolve 1 tsp of salt in 1 cup of warm water. Use a cool-mist humidifier to add moisture to the air. This can help you breathe more easily. Eating and drinking Drink enough fluid to keep your urine pale yellow. Eat soups and other clear broths. General instructions Take vhgs-krv-ytrceyn and prescription medicines only as told by your health care provider. These include cold medicines, fever reducers, and cough suppressants. Do not use any products that contain nicotine or tobacco, such as cigarettes and e-cigarettes. If you need help quitting, ask your health care provider. Stay away from secondhand smoke. Stay up to date on all immunizations, including the yearly (annual) flu vaccine. Keep all follow-up visits as told by your health care provider. This is important. How to prevent the spread of infection to others URIs can be passed from person to person (are contagious). To prevent the infection from spreading: ?Wash your hands often with soap and water. If soap and water are not available, use hand tarring machine operator. ?Avoid touching your mouth, face, eyes, or nose. ?Cough or sneeze into a tissue or your sleeve or elbow instead of into your hand or into the air. Contact a health care provider if: You are getting worse instead of better. You have a fever or chills. Your mucus is brown or red. You have yellow or brown discharge coming from your nose. You have pain in your face, especially when you bend forward. You have swollen neck glands. You have pain while swallowing. You have white areas in the back of your throat. Get help right away if: You have shortness of breath that gets worse. You have severe or persistent: ?Headache. ?Ear pain. ?Sinus pain. ?Chest pain. You have chronic lung disease along with any of the following: ?Wheezing. ?Prolonged cough. ?Coughing up blood. ?A change in your usual mucus. You have a stiff neck. You have changes in your: ?Vision. ?Hearing. ?Thinking. ?Mood. Summary An upper respiratory infection (URI) is a common infection of the nose, throat, and upper air passages that lead to the lungs. A URI is caused by a virus. URIs usually get better on their own within 7 10 days. Medicines cannot cure URIs, but your health care provider may recommend certain medicines to help relieve symptoms. This information is not intended to replace advice given to you by your health care provider. Make sure you discuss any questions you have with your health care provider. Document Released: 12/01/2001 Document Revised: 06/15/2019 Document Reviewed: 01/21/2018 [employer] Patient Education 2020 [employer] [place]. 05/29/2022 12:00:28 Influenza, Adult Influenza, Adult Influenza, more commonly known as the flu, is a viral infection that mainly affects the respiratory tract. The respiratory tract includes organs that help you breathe, such as the lungs, nose, and throat. The flu causes many symptoms similar to the common cold along with high fever and body aches. The flu spreads easily from person to person (is contagious). Getting a flu shot (influenza vaccination) every year is the best way to prevent the flu. What are the causes? This condition is caused by the influenza virus. You can get the virus by: Breathing in droplets that are in the air from an infected person's cough or sneeze. Touching something that has been exposed to the virus (has been contaminated) and then touching your mouth, nose, or eyes. What increases the risk? The following factors may make you more likely to get the flu: Not washing or sanitizing your hands often. Having close contact with many people during cold and flu season. Touching your mouth, eyes, or nose without first washing or sanitizing your hands. Not getting a yearly (annual) flu shot. You may have a higher risk for the flu, including serious problems such as a lung infection (pneumonia), if you: Are older than 65. Are . Have a weakened disease-fighting system (immune system). You may have a weakened immune system if you: ?Have HIV or AIDS. ?Are undergoing chemotherapy. ?Are taking medicines that reduce (suppress) the activity of your immune system. Have a long-term (chronic) illness, such as heart disease, kidney disease, diabetes, or lung disease. Have a liver disorder. Are severely overweight (morbidly obese). Have anemia. This is a condition that affects your red blood cells. Have asthma. What are the signs or symptoms? Symptoms of this condition usually begin suddenly and last 4 14 days. They may include: Fever and chills. Headaches, body aches, or muscle aches. Sore throat. Cough. Runny or stuffy (congested) nose. Chest discomfort. Poor appetite. Weakness or fatigue. Dizziness. Nausea or vomiting. How is this diagnosed? This condition may be diagnosed based on: Your symptoms and medical history. A physical exam. Swabbing your nose or throat and testing the fluid for the influenza virus. How is this treated? If the flu is diagnosed early, you can be treated with medicine that can help reduce how severe the illness is and how long it lasts (antiviral medicine). This may be given by mouth (orally) or through an IV. Taking care of yourself at home can help relieve symptoms. Your health care provider may recommend: Taking qycy-rmi-hdlfykd medicines. Drinking plenty of fluids. In many cases, the flu goes away on its own. If you have severe symptoms or complications, you may be treated in a hospital. Follow these instructions at home: Activity Rest as needed and get plenty of sleep. Stay home from work or school as told by your health care provider. Unless you are visiting your health care provider, avoid leaving home until your fever has been gone for 24 hours without taking medicine. Eating and drinking Take an oral rehydration solution (ORS). This is a drink that is sold at pharmacies and retail stores. Drink enough fluid to keep your urine pale yellow. Drink clear fluids in small amounts as you are able. Clear fluids include water, ice chips, diluted fruit juice, and low-calorie sports drinks. Eat bland, dyiu-fi-uxgfal foods in small amounts as you are able. These foods include bananas, applesauce, rice, lean meats, toast, and crackers. Avoid drinking fluids that contain a lot of sugar or caffeine, such as energy drinks, regular sports drinks, and soda. Avoid alcohol. Avoid spicy or fatty foods. General instructions Take pykp-znn-sjjdieu and prescription medicines only as told by your health care provider. Use a cool mist humidifier to add humidity to the air in your home. This can make it easier to breathe. Cover your mouth and nose when you cough or sneeze. Wash your hands with soap and water often, especially after you cough or sneeze. If soap and water are not available, use alcohol-based hand tarring machine operator. Keep all follow-up visits as told by your health care provider. This is important. How is this prevented? Get an annual flu shot. You may get the flu shot in late summer, fall, or winter. Ask your health care provider when you should get your flu shot. Avoid contact with people who are sick during cold and flu season. This is generally fall and winter. Contact a health care provider if: You develop new symptoms. You have: ?Chest pain. ?Diarrhea. ?A fever. Your cough gets worse. You produce more mucus. You feel nauseous or you vomit. Get help right away if: You develop shortness of breath or difficulty breathing. Your skin or nails turn a bluish color. You have severe pain or stiffness in your neck. You develop a sudden headache or sudden pain in your face or ear. You cannot eat or drink without vomiting. Summary Influenza, more commonly known as the flu, is a viral infection that primarily affects your respiratory tract. Symptoms of the flu usually begin suddenly and last 4 14 days. Getting an annual flu shot is the best way to prevent getting the flu. Stay home from work or school as told by your health care provider. Unless you are visiting your health care provider, avoid leaving home until your fever has been gone for 24 hours without taking medicine. Keep all follow-up visits as told by your health care provider. This is important. This information is not intended to replace advice given to you by your health care provider. Make sure you discuss any questions you have with your health care provider. Document Released: 2001 Document Revised: 09/07/2019 Document Reviewed: 11/23/2018 [employer] Patient Education 2020 [employer] [place]. Follow Up Care 05/29/2022 10:41:29 With:Gomez Card Address: [address] [place] [phone] Business (1) When:06/01/2022 11:40:58 [facility] Evaluation + Plan note Note Date & Type Note Facility Evaluation + Plan note No data available for this section [facility] Progress note Note Date & Type Note Facility Progress note No data available for this section [facility] Summary Purpose Family History No Family History Records FoundNo Family History Records FoundNo Family History Records Found Advance Directives No Advanced Directives Records FoundNo Advanced Directives Records FoundNo Advanced Directives Records Found Additional Source Comments Patient Care team informatio n (unrecognized section and content) Personnel Name: Gomez Card MD Address: Address: [address] [place] [address]- INFORMATION SOURCE (unrecogn ized section and content) DATE CREATED AUTHOR 06/01/2022 Pablo Chamberlain [facility] DATE CREATED AUTHOR AUTHOR'S ORGANIZ ATION 10/28/2022 [facility] DATE CREATED AUTHOR AUTHOR'S ORGANIZ ATION 11/05/2023 [facility] FOR RECORDS PERTAINING TO PATIENTS WHO ARE OR HAVE BEEN ENROLLED IN A CHEMICAL DEPENDENCY/SUBSTANCEABUSE PROGRAM, SOME INFORMATION MAY BE OMITTED. This clinical summary was aggregated from multiple sources. Caution should be exercised in using it in the provision of clinical care. This summary normalizes information from multiple sources, and as a consequence, information in this document may materially change the coding, format and clinical context of patient data. In addition, data may be omitted in some cases. CLINICAL DECISIONS SHOULD BE BASED ON THE PRIMARY CLINICAL RECORDS. [employer] provides no warranty or guarantee of the accuracy or completeness of information in this document.
[2023-12-11 12:11] LABS: Age Gdln ACOG Testing Note (.); HPV Aptima Negative (Negative); IGP, Aptima HPV, rfx 16/18,45 Note (.)
== END 2023-12-07 20:10 | disposition home or self-care (01) ==
LOC: LAB 20:09
PROVIDERS: PCP Nurse Practitioner Family; Visit Provider Obstetrics & Gynecology
DX: Z01.419 Encounter for gynecological examination (general) (routine) without abnormal findings (principal)
CPT/HCPCS: 87624; 88175

== ENCOUNTER 2023-12-17 09:36 | Outpatient (OUT) | payer OTHER, SELFPAY ==
--- OUTSIDE RECORDS SUMMARY | 2023-12-17 09:42 | XMS_ITS | CCD ---
Author Organization [facility] Care Team Providers Care Orthopedic Brace Maker Name Role Phone Gomez Card Primary Care [...] Consulting Unavailable BALDEMAR, JUAN ALBERTO Attending Unavailable ANIRUDHSORIN Attending Unavailable Allergies Allergy Classification Reported Allergen(s) Allergy Type Date of Onset Reaction(s) Facility (2 sources) Sulfonamides (Antibiotic); Translations: [sulfa drugs] Drug allergy Weal (disorder) [facility] (1 source) Sulfonamides (Antibiotic) Drug allergy (disorder) 6 [facility] Rep[facility] Medications Current Medications Medication Drug Class(es) Dates Sig (Normalized) Sig (Original) brompheniramine maleate 0.4 mg/ml / dextromethorphan hydrobromide 2 mg/ml / pseudoephedrine hydrochloride 6 mg/ml oral solution (1 source) alpha-Adrenergic Agonist, Uncompetitive U-hsogkq-X-aspartat e Receptor Antagonist, Sigma-1 Agonist Start: 05-29-2022 End: 06-05-2022 take 10 mL by mouth four times daily for cough and congestion Bromfed DM oral syrup 10 mL, Oral, QID for cough and congestion for 7 day(s), 280 mL, Refill(s) 0, [facility]/pharmacy #[id number], 163, cm, 05/29/22 10:46:00 EST, Height/Length Dosing, 71, kg, 05/29/22 10:46:00 EST, Weight Dosing Start Date: 05/29/22 Stop Date: 06/05/22 Status: Ordered oxybutynin chloride 5 mg oral tablet (1 source) Cholinergic Muscarinic Antagonist Start: 04-24-2020 oxybutynin 5 mg Tab See Instructions, PRN for urinary discomfort, 2 tab(s) Oral at night for bladder urgency, # 60 tab(s), Refills(s) 6, Pharmacy: [facility]/pharmacy #[id number], 162, cm, 04/24/20 10:24:00 EST, Height/Length [...] 09-18-2022 BASO # 0.0 103/ul Normal 0.0-0.1 [facility] Comment on above: Performed By: #### C BC #### [facility] [address] [place] [address] Dr. Ventura Moe Basophils/100 WBC (Bld) 0.8 % Normal 0.2-2.0 [facility] Comment on above: Performed By: #### C BC #### [facility] [address] [place] [address] Dr. Ventura Moe EO # 0.1 103/ul Normal 0.0-0.7 [facility] Comment on above: Performed By: #### C BC #### [facility] [address] [place] [address] Dr. Ventura Moe Eosinophils/100 WBC (Bld) 1.2 % Normal 0.9-7.0 [facility] Comment on above: Performed By: #### C BC #### [facility] [address] [place] [address] Dr. Ventura Moe Erythrocyte distribution width (RBC) [Ratio] 14.0 % Normal 11.0-15.0 [facility] Comment on above: Performed By: #### C BC #### [facility] [address] [place] [address] Dr. Ventura Moe Hematocrit (Bld) [Volume fraction] 36.9 % Normal 36.0-48.0 [facility] Comment on above: Performed By: #### C BC #### [facility] [address] [place] [address] Dr. Ventura Moe Hemoglobin (Bld) [Mass/Vol] 12.4 g/dL Normal 12.0-16.0 [facility] Comment on above: Performed By: #### C BC #### [facility] [address] [place] [address] Dr. Ventura Moe IG # 0.01 10e3/ul Normal 0.00-0.03 [facility] Comment on above: Performed By: #### C BC #### [facility] [address] [place] [address] Dr. Ventura Moe IG % 0.2 % Normal 0.0-0.5 [facility] Comment on above: Performed By: #### C BC #### [facility] [address] [address] [address] Ventura Moe LYMPH # 2.0 103/ul Normal 1.2-3.8 [facility] Comment on above: Performed By: #### C BC #### [facility] [address] [place] [address] Dr. Ventura Moe Lymphocytes/100 WBC (Bld) 40.6 % Normal 20.5-60.0 [facility] Comment on above: Performed By: #### C BC #### [facility] [address] [place] [address] Dr. Ventura Moe MANUAL DIFF REQ NO Normal [facility] Comment on above: Performed By: #### C BC #### [facility] [address] [place] [address] Dr. Ventura Moe MCH (RBC) [Entitic mass] 29.2 pg Normal 26.7-34.0 [facility] Comment on above: Performed By: #### C BC #### [facility] [address] [place] [address] Dr. Ventura Moe MCHC (RBC) [Mass/Vol] 33.6 g/dL Normal 29.9-35.2 [facility] Comment on above: Performed By: #### C BC #### [facility] [address] [place] [address] Dr. Ventura Moe MCV (RBC) [Entitic vol] 87.0 fL Normal 81.0-99.0 [facility] Comment on above: Performed By: #### C BC #### [facility] [address] [place] [address] Dr. Ventura Meo MONO # 0.6 103/ul Normal 0.3-0.8 [facility] Comment on above: Performed By: #### C BC #### [facility] [address] [place] [address] Dr. Ventura Moe Monocytes/100 WBC (Bld) 12.4 % Critically high 1.7-12.0 [facility] Comment on above: Performed By: #### C BC #### [facility] [address] [place] [address] Dr. Ventura Moe NEUT # 2.2 103/ul Normal 1.4-6.5 [facility] Comment on above: Performed By: #### C BC #### [facility] [address] [place] [address] Dr. Ventura Moe Neutrophils/100 WBC (Bld) 44.8 % Normal 43.0-75.0 [facility] Comment on above: Performed By: #### C BC #### [facility] [address] [place] [address] Dr. Ventura Moe Platelet mean volume (Bld) [Entitic vol] 9.4 fL Critically low 9.5-13.5 [facility] Comment on above: Performed By: #### C BC #### [facility] [address] [place] [address] Dr. Ventura Moe PLT 266 103/ul Normal 150-450 [facility] Comment on above: Performed By: #### C BC #### [facility] [address] [place] [address] Dr. Ventura Moe RBC 4.24 106/ul Normal 4.20-5.40 [facility] Comment on above: Performed By: #### C BC #### [facility] [address] [place] [address] Dr. Ventura Moe WBC 4.9 103/ul Normal 4.0-11.0 [facility] Comment on above: Performed By: #### C BC #### [facility] [address] [place] [address] Dr. Ventura Moe PREG QUANT HCGon 09-18-2022 HCG QUANT <1 Normal [facility] Comment on above: Performed By: #### P REGQNT #### [facility] [address] [place] [address] Dr. Ventura Moe HCG RANGE SEE BELOW Normal [facility] Comment on above: Result Comment: 5-50 0.2-1 WEEK 50-500 1-2 WEEKS 100-5,000 2-3 WEEKS 500-10,000 3-4 WEEKS 1,000-50,000 4-5 WEEKS 10,000-100,000 5-6 WEEKS 15,000-200,000 6-8 WEEKS 10,000-100,000 2-3 MONTHS Performed By: #### P REGQNT #### [facility] [address] [place] [address] Dr. Ventura Moe XR CHEST 2 Von [...] [place] Date: 2022-09-07 09:08 Normal [facility] CHLAMYDIA/GONOCOCCUS VINITA (SW AB/URINE/PAPon 08-03-2022 Chlamydia trachomatis, VINITA Negative Normal Negative [facility] Comment on above: Performed By: #### C T/NGNA #### [facility] [address] [place] [address] Dr. Ventura Moe Neisseria gonorrhoeae, VINITA Negative Normal Negative [facility] Comment on above: Performed By: #### C T/NGNA #### [facility] [address] [place] [address] Dr. Ventura Moe VAGINITIS/VAGINOSIS DNA PROB Charles 08-01-2022 Batool species Negative Normal Negative [facility] Comment on above: Performed By: #### V AGINT #### [facility] [address] [place] [address] Dr. Ventura Moe Gardnerella vaginalis Negative Normal Negative [facility] Comment on above: Performed By: #### V AGINT #### [facility] [address] [place] [address] Dr. Ventura Moe Trichomonas vaginalis Negative Normal Negative [facility] Comment on above: Performed By: #### V AGINT #### [facility] [address] [place] [address] Dr. Ventura Moe HERPES SIMPLEX VIRUS (HSV) C ULTUREon 07-25-2022 HSV Culture/Type Comment Abnormal The [facility] Comment on above: Result Comment: Posi tive for Herpes simplex virus type-2. Typing was confirmed by monoclonal antibody microscopic immunofluorescence. Performed By: #### H SVCUL #### [facility] [address] [place] [address] Dr. Ventura Moe US PELVIS TRANSVAGon 023 [...] GISELA TIDWELL Date: 2022-07-09 15:34 Normal [facility] CHLAMYDIA/GONOCOCCUS VINITA (SW AB/URINE/PAPon 07-06-2022 Chlamydia trachomatis, VINITA Negative Normal Negative [facility] Comment on above: Performed By: #### V AGINT #### [facility] [address] [place] [address] Dr. Ventura Moe Neisseria gonorrhoeae, VINITA Negative Normal Negative [facility] Comment on above: Performed By: #### V AGINT #### [facility] [address] [place] [address] Dr. Ventura Moe VAGINITIS/VAGINOSIS DNA PROB Charles 07-04-2022 Batool species Negative Normal Negative [facility] Comment on above: Performed By: #### V AGINT #### [facility] [address] [place] [address] Dr. Ventura Moe Gardnerella vaginalis Positive Abnormal Negative [facility] Comment on above: Performed By: #### V AGINT #### [facility] [address] [place] [address] Dr. Ventura Moe Trichomonas vaginalis Negative Normal Negative [facility] Comment on above: Performed By: #### V AGINT #### [facility] [address] [place] [address] Dr. Ventura Moe Coding Summary.on 06-01-2022 Coding Summary. CD:[id number] Gh 0bWw+PGhlYWQ+UN6GDRRmA 50hxXKthQ3MW2jEBF9AOBL GSWIXGP8HOC2paRQ0ODisR 2VybiAv MttgzNXqQC98ZFa4GKR2gB fvNAelyB5kjYUxP3w3JeWp DN64xR99FDbjXOOmGyI1Cy ZpbjsgbWFy D4gbNfFzkMOaIum+PHRhYm xlIHdpZHRoPScxMDAlJyBz jRemIN9mUu2sJADpSIZblS xhcHNlOiBj j9qiQPClWXukBW9bbRjjJ9 HlkUJ1AOSvk6o0Kw43bNB+ TFGsKAT4cXckQSikw880Td Gsc1xoBZR9 wPNlUDtvHML0V58in0G4LC XlJHXeXIP2uLA1eA3reUfo juvzT8UdyZLwLgI3MTR3vV LfgQ6ruWqn ykosyE4sApw+M74MJV3CIA BGWZ7BBox0R7DgZqlueKE+ AQ36TREwZH15rYDdoGOdn7 fubVv5RxKr IFBgSVG0rKljDVvyt1CqSF HtQ49xnSWds8A2LIFmkXjy wAArSdMtfUG8eE5eVGyevo thv4ilpvqv Lwwdo6bmvo99mY64F03eNC ejMCQpJVT7QASxVQOjuDpc xe2zhP2vVt0+DTjzn6sbx8 bpvIz1YrCs WSGlpeKvmQpaUYD0f4ZcUc 21V2YzjRoau0YkCen4vy59 dYWfb0M3pFD0GIptMJHssL 7dMCioIcM1 AHOlPxIbnJ97tFTsOPawRe 4lrEzvlAemKW3mQLAwtagw TYFqdI2dCJQtqHSviWzzSZ 4wNTBpbjtm m419WeLdUFL5KIBnkJRrH3 DnvV8jYtAwQPHnTQHpG5Ek lBTzNMslZ695KSnpTtM6QS GzhyMxQ8Mn TRHddFyjSyC8g4B3Rh8Zf0 EnlhijXVX2TLojBLPlPaNn RnXbAmO8J6WhArk2CRBqqR qxXO7oZ0Do WLMutsicspblhZK2VIHjIC NisR59jNDzPUqoVk0nb7G3 g917ACZjQOOsnU48Au4keS ogMTBwdCBU vU3nfcvoi9fdjkcfMlKwAC LiQOl9UFo7VSUtlQmrTbEb CUK2HtF5TUT4yXLviF5vwB nslpfqtJ9p Oyc+V21mrH3uZRS8JEV9jv nlTOSkgqZyKV35KK67R8Vt PjwvdGFibGU+PGRpdiBzdH lwMQ9nFiRi p2kyx8MtEBbpM2AoUSCgFU emVcv1KRVnYAH3uHA0nI5k OYVlADivw7J2rWN9X3Ljsl Fsno5xq5va VAGdKEkwR23aoKNpw7H3MI QhvPQ0ATTyjRjvXgRkaE21 Oyc+VPCfvCxye6AfEiabe6 drt1gqsCy5 UiBlOSOygrRpwYtzKEK5l3 XjCi13V92iMZnqQEXzQBOj BIPrRKZzfDsutk2bcX1aTx 8+PGNvbCB3 qYE9pG4oAUYgOiJ0HIwgD3 28DsQewXAsJrjkx5yfs5zr nFm6NhLuFBKlgiGzbJlqIW G8e7PlKc90 A92jCStyNGAlIZHdHVLwUE ZmkTpwdw2ahT8rSi1+PC9j e6wyiu08sQ07mKU+PHRkIH M5dFnlVJlw IQDgfD1pNIdmRsB4ZVLgDv GxrI27cRQyXGciOb5mkZnu bUtnAE2hUXMfzhyey194Ld Ubu5mnORDs oXAcDRzvUXV5T12xj0X8KC WhUIRfKVT6uWW7wH6diNpn bjogbGVmdDsgdmVydGljYW nfMNjzJ955 IHRvcDsnPlBhdGllbnQgTm SeJSx0T2YnCto0VZHyeKuk UW0hiVBeCPvjNm9ngTlbpW nrEZ6dEYDa vnzny996RyWgh0bcFALhfZ OvHSqaFRV2T56ea5G6ZXXa FMXtEDD1qGN8sI6tbHrlxq ogbGVmdDsg jnAoxFkiCMyyGUobX230GA RvcDsnPkJpcnRoIERhdGU6 MF86EO65tRMqu2H4hYK0E9 BhZGRpbmct tyjndVA3CLHxYLNpwS42Mr 4cuUoiKh2yYAZaHFH1KGJj uHHrI0DmwP6rJtQgNKKhNE XwB0MlbUVc TLqyA997NVcuAgS5QIAhmw VqC8FgCGTwtTqnOfT5v1N8 Qj2WM5Y1SY36FU34dPKgl7 A3eOO3A3Tz RNVitkdktpngjKI7WDZcLW PfzL53Zl3nnPbyHw0mOLMv FGB9YLDcrUDiU0MqaG9lNy AjMDAwMDAw M2VjxJXlZXskI949QBvvVt H2WUAhqrUlJ8IpUDSssUsq GbZ4l4P3Jq0FMIr3LO22IS 71nCDbg1T9 xBA1R3VvJZCcqwyqefulzB C2YURnUWOwoC28Db2hwChz Ad4hTRChUGI8TEWgkHVyG0 RjgB3kEzUv JBQdVAQwC0BvpSPoBZluI6 27GHjmHdD3YWYohgBjT2Nb MVVwvReiBvX1u3K1Vl9ZRM ZxFT13NTZ1 aHZ7ZK69WG62F0GlFxjcsO FibGU+PHRhYmxlIHdpZHRo RLubCDFwNyGdkIslMS7eBb 9yZGVyLWNv nSiefZTdYfJaw6ulDDEbEN urJT8bbDkmV3MajHJ6UZBw r4w0Qs09P55zV1VeiAJ+PG UwaBO3iUV7 rJ5zWdBeQwJ7TNgtH549Lb QgsMWhNgeky3son0bqxAm4 GmG2XWEcrkPvzRlgUQX8x3 KiQw76E57k IHdpZHRoPSIxNSUiIHZhbG mgfd7qnV4aVh4+PGNvbCB3 wKR6rE7hTlDmAmB2TRhyZ0 49InRvcCIv Alhsq7ccr2fswNj9LnHbWO PfgsFxbJavAJB9n5IdQt95 C7IauNxdw4JkFaf1rf13xI Exv2C4wJK6 L4KxWWMplikylUPrmVyzPO 3aEWOkuymbCVLyxM9iSVZn W0a8BiFjJuS5BEgsE1Ofak I0DTMgnXQh ZAglVUS2N21vr3O0XWRsZY YsKXC0qZC9kS1stFkeqcau bGVmdDsgdmVydGljYWwtYW tbP154AFJc fSiaLPEbbZ1fWMQmpKImaO ppHA4bXUIfafanBdHMIVWJ WQGNMHJCKkl3V0PeLuh0ZD UwxMfmBB5t eIInGFdcNv5gwMlsrCraPM 2cLQKtjbhzTKBbfA1wBRNb xEKstOvtYX6vRSWdkkfrr1 71LgMfYNN8 HFSceHWiS9KpaX6oQkGtZM JjDWIsL8KnmVImKIynU407 NAtaGpB0PTOoilGjL1QzXD FsaWduOiB0 a2B1Pu9eHf8pNG3pGMqhWL 97WK19fFAao9H2pBX3J4Ue ACWhdaafylzqrMG7XUQcOU TakO55gYKp SWxvDe9hr7H9j681XQOkUS ZhwD37Wg1nwBxlFXKxzEAM xS7enuevj8oiezifLfLxWD XvAHb8NWl6 UFWkgQoaWjGlOTE0RlW4ZK G5pTPqcY5urUduuipkaB7o Oyc+QnjfITJfmkA4Q3JfTo l1NRPtuEqg UX3dkIIdGVxlHi4gqCnayA vbUZ0dBQGzvpkrHQLmdQ6e TTHdxGGxrYzuSM4vSTCqkx bkq181OmIz XHE8SBYncFBhP4WsyV6pIc XaELOhOHUnY1EspEVkGLjz W681FVejEcY3FXDbnpSiC6 FsLWFsaWdu IuM5w4Y6Pp9HCD2snYO1A9 SeCnm0EFJymCziPR5rxTPq FRdhLp2zgCyftDqnOY8zTM BpbjtwYWRk bP7vNPNplMGyvMfxTO0iMB Kvaxwzh066KhPbFMW2AFPd nFWbH4IwbV0fAuWjMXVtYN FeT7KfuVNr BCbtQ813AKfuIlT0QEPnht ZgJ0CsFXKbdOreDsO6s8Y5 Pb8JfTTlZ1UnP4r3U3EkTm wvdHI+PC90 YMEnHK69fVWtfMKmt6xvtX r0OzYjBCNoSAL6fQyyVUvg y8RjSFQaB66xpCRhl8D1RF NvbGxhcHNl OdJddJR2oT8gMRhhevjsz1 bqwdhkNbesx4pqcu19hB04 R18wZRewLZWpQYYsTDPzRS GniHetkn9f pE2sLs8+ASHvvQH8zHC5qH 5uWpIzJyE7LRcoW576DaIb sOPjOgdlp6gmc6oeqQi8Ga IwJSIgdmFs fFnfMKL9v4YsYo18X44zGX dpZHRoPSIyMCUiIHZhbGln xy4acX1oRs4+WH3dr2wuvy 81pW61vAF+ EEDrOSP2zJpqWTrbZXIoaI 1zOMyfFmP6RKZzJqHwhG22 eITvXWxhTk7faHcgpQwhSJ 4wNTBpbjtm h943TgWrd2woZAHicOYcLO hnCMP6Y40qd0P0POHvDXWo BFO3pPM5hB8jiOrfmvjmsV VmdDsgdmVy aLpzBPyjDHfdU088MEAxeF qmRmNxiUFnA7mgzdUHBO7d OjwvdGQ+YCAdUVE0aLnsCG nxFGAntC3v DOZyG0v3AeJrDkE9GZdhF9 SedlD6NXSdkCIlTJQklIYB aY6tdigsc9rkbknsZiWzXO DaIOq7TKa9 CKAbjLawDeQsSQR9VdV3MD A3aYOuuM3vtAcoozzrsV0c Oyc+RklOOjwvdGQ+PHRkIH Q0sZniGTip OAHqxT3mTSDmO6t6ItMcZr V3SEnyN5YzraR8YFZubWDt RCEuoVUPwU6wjlrvy1czjn ogIzAwMDAw FZn0DVi1JLLnuGogTrEgED J9NxP4OKP0gEWagJ3bwWbz vrdekL8jXis+TVJOOjwvdG Q+PHRkIHN0 bNgqFHolIXAwsB2rRGEyF7 n1GkByAcU1OIcjC6RshvW8 XOTwsUTuKDIsjEDFoE7wvy ugh0rwyqfy VoQbDBHsOWh6EHu8UJWefY tkBrWqNJD7BpM4IPD0oKIu oB3qrOtggvtduY2oIvq+UG O1HRF9ZN58 PQ27I5QtHeriyWOmyWR+PH RhYmxlIHdpZHRoPScxMDAl AxGheXbiUR4gIl6gIWYpDC NvbGxhcHNl OiBj (more content not included)... Normal [facility] Covid-19 PCR ([facility])on 05-21 SARS-CoV-2 (COVID-19) RNA VINITA+probe Ql (Unsp spec) Not detected Normal NOT DETECTED [facility] Comment on above: Result Comment: This test is not yet approved or cleared by the [place] FDA. When there are no FDA-approved or cleared tests available, and other criteria are met, FDA can make tests available under an emergency access mechanism called an Emergency Use Authorization (EUA). The EUA for this test is supported by the [place] of Health and Human Service's (HHS's) declaration [...] consistent with SARS-CoV-2. Performed By: #### C [facility] #### [facility] [address] [place] [address] Dr. Ventura Moe ED Note-Physicianon 06-01-20 ED Note-Physician Basic Information Time Seen: Alejandro MCGINNIS Skip 05/29/2022 10:42 Chief Complaint Mom reports congestion and coughing up phlegm since last night. Denies fever. History of Present Illness 26-year-old female comes to the ED for evaluation of cough and congestion. She presents with her children have similar symptoms. She states they were seen at [facility] recently where one of them has [...] for 7 day(s), 280 mL, Refill(s) 0, [facility]/pharmacy #[id number], 163, cm, 05/29/22 10:46:00 EST, Height/Length [...] Card In 3 days 06/01/2022 EST [address] [place] [address]- Business (1) Additional Instructions: Patient Education Upper Respiratory Infection, Adult Influenza, Adult Attestation Patient seen and evaluated by the physician medical assistant dermatology. Attending physician was present in the emergency department and supervised care. This visit was performed by both the physician and an APC. I performed all aspects of the MDM as documented. This report was transcribed using voice recognition software. Every effort was made to ensure accuracy, however, inadvertently computerized information management manager mistakes may be present. Appropriate healthcare PPE [...] tyler are clear. Bones unremarkable. Signed By: Ruel Limon MD [facility] Comment on above: Result Comment: Elec tronically Signed By: Skip Allen PA-C\.br\Date and Time Signed: 05/29/22 11:47 EST\.br\Electronically Co-Signed By: Jona Almeida DO\.br\Date and Time Co-Signed: 06/01/22 07:33 EST INFLUENZA A AND B AGon 06-01 INFLUBNEGH SEE BELOW Normal [facility] Comment on above: Result Comment: Nega tive for Flu B protein antigen. Infection due to Flu B cannot be ruled out. Flu B antigen in the sample may be below the detection limit of the test. Performed By: #### V AGINT #### [facility] [address] [place] [address] Dr. Ventura Moe INFLUENZA A AG Positive Abnormal NEGATIVE SEE COMMENT [facility] Comment on above: Performed By: #### V AGINT #### [facility] [address] [place] [address] Dr. Ventura Moe INFLUENZA B AG Negative Normal NEGATIVE SEE COMMENT [facility] Comment on above: Performed By: #### V AGINT #### [facility] [address] [address] [address] Ventura Moe INFLUPOSH SEE BELOW Normal [facility] Comment on above: Result Comment: NOTE : Live attenuated influenzae vaccine viruses can cause a positive result for a rapid influenza diagnostic test if administered up to 7 days prior to rapid testing. Performed By: #### V AGINT #### [facility] [address] [place] [address] Dr. Ventura Moe INTERNAL CONTROLS Within Normal Limits Normal Wi thin Normal Limits [facility] Comment on above: Performed By: #### V AGINT #### [facility] [address] [place], [place] [id number] Dr. Ventura Moe Consent for Treatmenton Consent for Treatment [id number] 0CD:127 Normal [facility] Discharge Instructionson Discharge Instructions [id number] 0CD:127 Normal [facility] ED Clinical Summaryon 2021 ED Clinical Summary [address] [address] ED Clinical Summary Person Information Name: [facility] Age: 26 Years : 1995 Sex: Female Language: Chinese PCP: Gomez Card MD Marital Status: Single [...] 05/29/2022 12:00:28 05/29/2022 12:00:28 05/29/2022 12:00:28 ADDRESS: [address] [place] [address] DR SHAYLA Mckay [facility] [phone] PHYS DOC NOTES: MEDICAL INFORMATION: Prescriptions Given: New Medications [id number], [address] [place], [place] [id number], [phone] brompheniramine/dextro methorphan/PSE (Bromfed DM oral syrup) 10 [...] Follow up: With: Address: When: Gomez Card [address] [place] [address], [place] [address] Business (1) In 3 days 06/01/2022 DIAGNOSIS: Cough; Upper respiratory infection Normal [facility] ED Patient Education Noteon 05-29-2022 ED Patient [...] to help relieve symptoms, such as: ? Oshx-bdx-zinwesa cold medicines. ? Cough suppressants. Coughing is [...] other clear broths. General instructions ? Take izvf-abl-lvzwmfs and prescription medicines only as told by [...] and water are not available, use hand construction code administrator. ? Avoid touching your mouth, face, eyes, [...] common infecti (more content not included)... Normal [facility] ED Patient Summaryon 022 ED Patient Summary [place] [id number] Patient Discharge Instructions Person Information Name: MICHAEL SEQUEIRA Age: 26 Years Arrival Date: 05/29/2022 10:40:59 Discharge Diagnosis: Cough; Upper respiratory infection Primary Care Physician: Gomez Card MD Provider Information Primary Provider: oJna Almeida DO Advanced Manufacturing Automation Engineer:Skip Allen PA-C The exam and treatment you received in the Emergency Department were for an urgent problem and are not intended as complete care. It is important that you follow up with a doctor, nurse practitioner, or physician?s medical assistant dermatology for ongoing care. If your symptoms become worse or you do not improve as expected and you are unable to reach your usual health care provider, you should return to the Emergency Department. We are available 24 hours a day. MICHAEL SEQUEIRA has been given the following list of patient education materials, prescriptions and follow-up instructions: Follow-up Instructions: With: Address: When: Gomez Savageasad [address] [place] [address], [place] [address] Business (1) In 3 days [...] opioids can be used to help relieve qborsxrs-nt-gnerzb pain and are often prescribed following a [...] be struggling with addiction, tell your health care center manager and ask for guidance or call [facility] National Help (more content not included)... Normal [facility] XR Chest 2 Viewson 2 XR Chest [...] MD Transcribed by: SISSY Technologist: JESUS Normal [facility] PAP ACOG PANEL 2: 19 to 29on 03-25-2022 . . [facility] Comment on above: Performed By: #### [id number] #### [facility] [address] [address] [address] Ventura Moe Age Gdln ACOG Testing - [facility] Comment on above: Performed By: #### [id number] #### [facility] [address] [address] [address] Ventura Moe DIAGNOSIS: Comment [facility] Comment on above: Result Comment: NEGA TIVE FOR INTRAEPITHELIAL LESION OR MALIGNANCY. Performed By: #### [id number] #### [facility] [address] [address] [address] Ventura Moe Methodology: Comment [facility] Comment on above: Result Comment: This liquid based ThinPrep(R) pap test was screened with the use of an image guided system. Performed By: #### [id number] #### [facility] [address] [place] [address] Dr. Ventura Moe Note: Comment Normal [facility] Comment on above: Result Comment: The Pap smear is a screening test designed to aid in the detection of premalignant and malignant conditions of the uterine cervix. It is not a diagnostic procedure and should not be used as the sole means of detecting cervical cancer. Both false-positive and false-negative reports do occur. . Performed By: #### [id number] #### [facility] [address] [place] [address] Dr. Ventura Moe Performed by: Comment Normal [facility] Comment on above: Result Comment: Joshua Callahan, Part Time Flexible Clerk (ASCP) Performed By: #### [id number] #### [facility] [address] [place] [address] Dr. Ventura Moe Reflex Criteria: Comment Normal [facility] Comment on above: Result Comment: The HPV DNA reflex criteria were not met with this specimen result therefore, no HPV testing was performed. . Performed By: #### [id number] #### [facility] [address] [place] [address] Dr. Ventura Moe Specimen adequacy: Comment Normal [facility] Comment on above: Result Comment: Sati sfactory for evaluation. Endocervical and/or squamous metaplastic cells (endocervical component) are present. Performed By: #### [id number] #### [facility] [address] [place] [address] Dr. Ventura Moe CHLAMYDIA/GONOCOCCUS VINITA (SW AB/URINE/PAPon 03-20-2022 Chlamydia trachomatis, VINITA Negative Normal Negative [facility] Comment on above: Performed By: #### C T/NGNA #### [facility] [address] [place] [address] Dr. Ventura Moe Neisseria gonorrhoeae, VINITA Negative Normal Negative [facility] Comment on above: Performed By: #### C T/NGNA #### [facility] [address] [address] [address] Ventura Moe VAGINITIS/VAGINOSIS DNA PROB [place] 03-19-2022 Batool species Negative Normal Negative [facility] Comment on above: Performed By: #### V AGINT #### [facility] [address] [address] [address] Ventura Moe Gardnerella vaginalis Positive Abnormal Negative [facility] Comment on above: Performed By: #### V AGINT #### [facility] [address] [address] [address] Ventura Moe Trichomonas vaginalis Negative Normal Negative [facility] Comment on above: Performed By: #### V AGINT #### [facility] [address] [address] [address] Ventura Moe Vital Signs Date Time Vital Sign Value Performing Clinician Faci lity 05-29-2022 10:44-0500 Body temperature 98.06 [degF] Jona Brennane [facility] 05-29-2022 10:44-0500 Diastolic blood pressure 82 mm[Hg] Jona [employer] [facility] 05-29-2022 10:44-0500 Heart rate 95 /min [employer]ona [employer] [facility] 05-29-2022 10:44-0500 Respiratory rate 18 /min [employer]ona [employer] [facility] 05-29-2022 10:44-0500 SaO2% (BldA) [Mass fraction] 98 % Jona Juan Pablo [facility] 05-29-2022 10:44-0500 Systolic blood pressure 123 mm[Hg] Jona iKaaz [facility] Encounters Encounter Date Encounter Type Care Provider Facility Start: 12-07-2023 End: 12-07-2023 ambulatory SORIN AGUILAR Not Available Start: 11-03-2023 End: 11-03-2023 ambulatory JUAN ALBERTO MCDERMOTT Not Available Start: 09-18-2022 End: 09-18-[address] SORIN AGUILAR . Facility:[facility] Start: 09-12-2022 Encounter for preprocedural respiratory examination DR SORIN AGUILAR . [facility] Start: 09-07-2022 End: 09-08-[address] [...] End: 07-02-2022 ambulatory JUAN ALBERTO MCDERMOTT . Facility:[facility] Start: 06-01-2022 End: 06-01-2022 ambulatory LUZ ZAPATA Facility: Start: 05-29-2022 End: 05-29-2022 Emergency department patient visit Jona Almeida Facility:[facility] Start: 05-29-2022 End: 05-29-2022 Emergency department patient visit Jona Almeida [facility] Start: 03-17-2022 End: 03-17-[address] SORIN AGUILAR . Facility: Procedures Date Procedure Procedure Detail Performing Clinician of child (finding) Hakeem Almeida Hemorrhoids (disorder) Jona Almeida Payers Date Payer Category Payer Unknown [id number] 2.16.8 [id number] 1993 Unknown [id number] 2.16.84 [id number] 1993 Unknown [id number] 2.16.84 [id number] 1993 Unknown [id number] 2.16.84 [id number] 1993 Unknown [id number] 2.16.84 [id number] 1993 Unknown [id number] 2.16.84 [id number] 1993 Unknown [id number] 2.16.84 [id number] 1993 Unknown [id number] 2.16.84 [id number] 1993 Unknown [id number] 2.16.84 [id number] 1993 Unknown [id number] 2.16.84 [id number] 1993 Unknown [id number] 2.16.84 [id number] 1959 Unknown [id number] Social History Date Type Detail Facility Start: 04-24-2020 Tobacco smoking status Light t obacco smoker (finding) [facility] Sex Assigned At Female [facility] Functional Status Date Assessment Result Facility 05-29-2022 Functional Status N/A [facility] Clinical Note 09-18-2022 Note Date & Type Note Facility 09-18-2022 Note OPERATIVE NOTE OPERATION DATE: 09/18/2022 PROCEDURE: Robotic assisted bilateral laparoscopic salpingectomy. PREOPERATIVE DIAGNOSIS: Desires permanent sterilization, multiparity. POSTOPERATIVE DIAGNOSIS: Desires permanent sterilization, multiparity. ANESTHESIA: General. SURGEON: Sorin Aguilar D.O. MANUFACTURING MECHANIC: DAMIAN Pinto URINE OUTPUT: Yellow and clear. [...] and needle counts were correct x2. [facility] Discharge instructions 05-29-2022 Note Date & [...] medicines to help relieve symptoms, such as: Octs-jug-xdvvwzt cold medicines. Cough suppressants. Coughing is a [...] and other clear broths. General instructions Take iamq-vjs-dddbycn and prescription medicines only as told by [...] and water are not available, use hand construction code administrator. ?Avoid touching your mouth, face, eyes, or [...] 12/01/2001 Document Revised: 06/15/2019 Document Reviewed: 01/21/2018 [employer] Patient Education 2020 [employer]. 05/29/2022 12:00:28 Influenza, Adult Influenza, Adult Influenza, [...] Your health care provider may recommend: Taking akpx-jwk-bemslkz medicines. Drinking plenty of fluids. In many [...] juice, and low-calorie sports drinks. Eat bland, iozn-bw-webdll foods in small amounts as you are able. These foods include bananas, applesauce, rice, lean meats, toast, and crackers. Avoid drinking fluids that contain a lot of sugar or caffeine, such as energy drinks, regular sports drinks, and soda. Avoid alcohol. Avoid spicy or fatty foods. General instructions Take vqyn-vmk-jkqmhky and prescription medicines only as told by [...] water are not available, use alcohol-based hand construction code administrator. Keep all follow-up visits as told by [...] 2001 Document Revised: 09/07/2019 Document Reviewed: 11/23/2018 Swarm Patient Education 2020 [employer]. Follow Up Care 05/29/2022 10:41:29 With:Gomez Card Address: [address] [place] [phone] Business (1) When:06/01/2022 11:40:58 [facility] Evaluation + Plan note Note Date & Type Note Facility Evaluation + Plan note No data available for this section [facility] Progress note Note Date & Type Note Facility Progress note No data available for this section [facility] Summary Purpose Family History No Family History Records FoundNo Family History Records FoundNo Family History Records Found Advance Directives No Advanced Directives Records FoundNo Advanced Directives Records FoundNo Advanced Directives Records Found Additional Source Comments Patient Care team informatio n (unrecognized section and content) Personnel Name: Gomez Card MD Address: Address: [facility] [facility] [place] [address]- INFORMATION SOURCE (unrecogn ized section and content) DATE CREATED AUTHOR 06/01/2022 Pablo Weld [facility] DATE CREATED AUTHOR AUTHOR'S ORGANIZ ATION 10/28/2022 [facility] DATE CREATED AUTHOR AUTHOR'S ORGANIZ ATION 12/09/2023 [facility] EPIC FOR RECORDS PERTAINING TO PATIENTS WHO ARE [...] BE BASED ON THE PRIMARY CLINICAL RECORDS. [facility] [employer] provides no warranty or guarantee of the accuracy or completeness of information in this document.
[2023-12-17 10:39] LABS: Basophils Percent Auto 0.5 % (0.2-2.0); Eosinophils Absolute Auto 0.1 10^3/uL (0.0-0.7); Eosinophils Percent Auto 1.2 % (0.9-7.0); Hematocrit 38.8 % (36.0-48.0); Hemoglobin 12.7 g/dL (12.0-16.0); Immature Granulocytes Abs Auto 0.01 10^3/uL (0.00-0.03); Immature Granulocytes Pct Auto 0.2 % (0.0-0.5); Lymphocytes Absolute Auto 2.2 10^3/uL (1.2-3.8); Lymphocytes Percent Auto 38.4 % (20.5-60.0); Mean Corpuscular HGB Conc 32.7 g/dL (29.9-35.2); Mean Corpuscular Hemoglobin 28.9 pg (26.7-34.0); Mean Corpuscular Volume 88.4 fL (81.0-99.0); Mean Platelet Volume 9.9 fL (9.5-13.5); Monocytes Absolute Auto 0.5 10^3/uL (0.3-0.8); Monocytes Percent Auto 8.6 % (1.7-12.0); Neutrophils Percent Auto 51.1 % (43.0-75.0); Platelet Count 238 10^3/uL (150-450); Red Blood Count 4.39 10^6/uL (4.20-5.40); White Blood Count 5.8 10^3/uL (4.0-11.0)
== END 2023-12-17 09:37 | disposition home or self-care (01) ==
LOC: LAB 09:38
PROVIDERS: PCP Nurse Practitioner Family; Visit Provider Obstetrics & Gynecology
DX: Z86.2 Personal history of diseases of the blood and blood-forming organs and certain disorders involving the immune mechanism (principal)
CPT/HCPCS: 36415; 85025

== ENCOUNTER 2023-12-20 11:43 | Outpatient (OUT) | payer OTHER, SELFPAY ==
--- OUTSIDE RECORDS SUMMARY | 2023-12-20 11:47 | XMS_ITS | CCD ---
Author Organization [facility] Care Team Providers Care Cra Officer Name Role Phone Gomez Card Primary Care [...] Drug allergy Weal (disorder) [facility] (1 source) Sulfonamides (Antibiotic) Drug allergy (disorder) 6 [facility] Medications Current Medications Medication Drug Class(es) Dates Sig (Normalized) Sig (Original) brompheniramine maleate 0.4 mg/ml / dextromethorphan hydrobromide 2 mg/ml / pseudoephedrine hydrochloride 6 mg/ml oral solution (1 source) alpha-Adrenergic Agonist, Uncompetitive E-mdoirb-N-aspartat e Receptor Antagonist, Sigma-1 Agonist Start: 05-29-2022 End: 06-05-2022 take 10 mL by mouth four times daily for cough and congestion Bromfed DM oral syrup 10 mL, Oral, QID for cough and congestion for 7 day(s), 280 mL, Refill(s) 0, [facility]/pharmacy #[id number], 163, cm, 05/29/22 10:46:00 EST, Height/Length Dosing, 71, kg, 05/29/22 10:46:00 EST, Weight Dosing Start Date: 05/29/22 Stop Date: 06/05/22 Status: Ordered oxybutynin chloride 5 mg oral tablet (1 source) Cholinergic Muscarinic Antagonist Start: 04-24-2020 oxybutynin 5 mg Tab See Instructions, PRN for urinary discomfort, 2 tab(s) Oral at night for bladder urgency, # 60 tab(s), Refills(s) 6, Pharmacy: [facility]/pharmacy #[id number], 162, cm, 04/24/20 10:24:00 EST, Height/Length [...] 09-18-2022 BASO # 0.0 103/ul Normal 0.0-0.1 [facility] Comment on above: Performed By: #### C BC #### [facility] [address] [place] [address] Dr. Ventura Moe Basophils/100 WBC (Bld) 0.8 % Normal 0.2-2.0 [facility] Comment on above: Performed By: #### C BC #### [facility] [address] [place] [address] Dr. Ventura Moe EO # 0.1 103/ul Normal 0.0-0.7 [facility] Comment on above: Performed By: #### C BC #### [facility] [address] [place] [address] Dr. Ventura Moe Eosinophils/100 WBC (Bld) 1.2 % Normal 0.9-7.0 [facility] Comment on above: Performed By: #### C BC #### [facility] [address] [place] [address] Dr. Ventura Moe Erythrocyte distribution width (RBC) [Ratio] 14.0 % Normal 11.0-15.0 [facility] Comment on above: Performed By: #### C BC #### [facility] [address] [place] [address] Dr. Ventura Moe Hematocrit (Bld) [Volume fraction] 36.9 % Normal 36.0-48.0 [facility] Comment on above: Performed By: #### C BC #### [facility] [address] [place] [address] Dr. Ventura Moe Hemoglobin (Bld) [Mass/Vol] 12.4 g/dL Normal 12.0-16.0 [facility] Comment on above: Performed By: #### C BC #### [facility] [address] [place] [address] Dr. Ventura Moe IG # 0.01 10e3/ul Normal 0.00-0.03 [facility] Comment on above: Performed By: #### C BC #### [facility] [address] [place] [address] Dr. Ventura Moe IG % 0.2 % Normal 0.0-0.5 [facility] Comment on above: Performed By: #### C BC #### [facility] [address] [address] [address] Ventura Moe LYMPH # 2.0 103/ul Normal 1.2-3.8 [facility] Comment on above: Performed By: #### C BC #### [facility] [address] [place] [address] Dr. Ventura Moe Lymphocytes/100 WBC (Bld) 40.6 % Normal 20.5-60.0 [facility] Comment on above: Performed By: #### C BC #### [facility] [address] [place] [address] Dr. Ventura Moe MANUAL DIFF REQ NO Normal [facility] Comment on above: Performed By: #### C BC #### [facility] [address] [place] [address] Dr. Ventura Moe MCH (RBC) [Entitic mass] 29.2 pg Normal 26.7-34.0 [facility] Comment on above: Performed By: #### C BC #### [facility] [address] [place] [address] Dr. Ventura Moe MCHC (RBC) [Mass/Vol] 33.6 g/dL Normal 29.9-35.2 [facility] Comment on above: Performed By: #### C BC #### [facility] [address] [place] [address] Dr. Ventura Moe MCV (RBC) [Entitic vol] 87.0 fL Normal 81.0-99.0 [facility] Comment on above: Performed By: #### C BC #### [facility] [address] [place] [address] Dr. Ventura Moe MONO # 0.6 103/ul Normal 0.3-0.8 [facility] Comment on above: Performed By: #### C BC #### [facility] [address] [place] [address] Dr. Ventura Moe Monocytes/100 WBC (Bld) 12.4 % Critically high 1.7-12.0 [facility] Comment on above: Performed By: #### C BC #### [facility] [address] [place] [address] Dr. Ventura Moe NEUT # 2.2 103/ul Normal 1.4-6.5 [facility] Comment on above: Performed By: #### C BC #### [facility] [address] [place] [address] Dr. Ventura Moe Neutrophils/100 WBC (Bld) 44.8 % Normal 43.0-75.0 [facility] Comment on above: Performed By: #### C BC #### [facility] [address] [place] [address] Dr. Ventura Moe Platelet mean volume (Bld) [Entitic vol] 9.4 fL Critically low 9.5-13.5 [facility] Comment on above: Performed By: #### C BC #### [facility] [address] [place] [address] Dr. Ventura Moe PLT 266 103/ul Normal 150-450 [facility] Comment on above: Performed By: #### C BC #### [facility] [address] [place] [address] Dr. Ventura Moe RBC 4.24 106/ul Normal 4.20-5.40 [facility] Comment on above: Performed By: #### C BC #### [facility] [address] [place] [address] Dr. Ventura Moe WBC 4.9 103/ul Normal 4.0-11.0 [facility] Comment on above: Performed By: #### C BC #### [facility] [address] [place] [address] Dr. Ventura Moe PREG QUANT HCGon 09-18-2022 HCG QUANT <1 Normal [facility] Comment on above: Performed By: #### P REGQNT #### [facility] [address] [place] [address] Dr. Ventura Moe HCG RANGE SEE BELOW Normal [facility] Comment on above: Result Comment: 5-50 0.2-1 WEEK 50-500 1-2 WEEKS 100-5,000 2-3 WEEKS 500-10,000 3-4 WEEKS 1,000-50,000 4-5 WEEKS 10,000-100,000 5-6 WEEKS 15,000-200,000 6-8 WEEKS 10,000-100,000 2-3 MONTHS Performed By: #### P REGQNT #### [facility] [address] [place] [address] Dr. Ventura Moe XR CHEST 2 Von [...] [place] Date: 2022-09-07 09:08 Normal [facility] CHLAMYDIA/GONOCOCCUS VINITA (SW AB/URINE/PAPon 08-03-2022 Chlamydia trachomatis, VINITA Negative Normal Negative [facility] Comment on above: Performed By: #### C T/NGNA #### [facility] [address] [place] [address] Dr. Ventura Moe Neisseria gonorrhoeae, VINITA Negative Normal Negative [facility] Comment on above: Performed By: #### C T/NGNA #### [facility] [address] [place] [address] Dr. Ventura Moe VAGINITIS/VAGINOSIS DNA PROB Charles 08-01-2022 Batool species Negative Normal Negative [facility] Comment on above: Performed By: #### V AGINT #### [facility] [address] [place] [address] Dr. Ventura Moe Gardnerella vaginalis Negative Normal Negative [facility] Comment on above: Performed By: #### V AGINT #### [facility] [address] [place] [address] Dr. Ventura Moe Trichomonas vaginalis Negative Normal Negative [facility] Comment on above: Performed By: #### V AGINT #### [facility] [address] [place] [address] Dr. Ventura Moe HERPES SIMPLEX VIRUS (HSV) C ULTUREon 07-25-2022 HSV Culture/Type Comment Abnormal [facility] Comment on above: Result Comment: Posi tive for Herpes simplex virus type-2. Typing was confirmed by monoclonal antibody microscopic immunofluorescence. Performed By: #### H SVCUL #### [facility] [address] [place] [address] Dr. Ventura Moe US PELVIS TRANSVAGon 023 [...] GISELA TIDWELL Date: 2022-07-09 15:34 Normal [facility] CHLAMYDIA/GONOCOCCUS VINITA (SW AB/URINE/PAPon 07-06-2022 Chlamydia trachomatis, VINITA Negative Normal Negative [facility] Comment on above: Performed By: #### V AGINT #### [facility] [address] [place] [address] Dr. Ventura Moe Neisseria gonorrhoeae, VINITA Negative Normal Negative [facility] Comment on above: Performed By: #### V AGINT #### [facility] [address] [place] [address] Dr. Ventura Moe VAGINITIS/VAGINOSIS DNA PROB [place] 07-04-2022 Batool species Negative Normal Negative [facility] Comment on above: Performed By: #### V AGINT #### [facility] [address] [place] [address] Dr. Ventura Moe Gardnerella vaginalis Positive Abnormal Negative [facility] Comment on above: Performed By: #### V AGINT #### [facility] [address] [place] [address] Dr. Ventura Moe Trichomonas vaginalis Negative Normal Negative [facility] Comment on above: Performed By: #### V AGINT #### [facility] [address] [place] [address] Dr. Ventura Moe Coding Summary.on 06-01-2022 Coding Summary. [id number] Gh 0bWw+PGhlYWQ+SP6IRWVbF 41lzJCpwD1XQ0gKIU4WPGJ ZHEHZZJ3MFM9zhAC0DLxeI 2VybiAv XoysmBRdBM83FDu6HXT8xB juCEkraS7owCTxT8p3RaKy MW87vP67HKxbPXSwFqK6Yn ZpbjsgbWFy Y3svOgRqyJJxKqo+PHRhYm xlIHdpZHRoPScxMDAlJyBz yLdoHE9yLp0nQVWfTKEieN xhcHNlOiBj e2vkFSKjOUxkXG7muUtoW1 WprBU0RRLag5z3Jf85qKX+ OCLaTGQ6jJboQKwqt827Ga Fqk3fiRWC9 vSWnHYrxWWG0U77yl3N8RN HgESGnKIO3pSG0sV2hvIbu tofjR9AhnQZlJiQ6PHN5uE EkvO5ljYkw qphtlJ8uQcn+X96GSP8CJF NIUR7NCtz0H0ZmQgjwmWD+ UX18UPNtAY79nNLzhOPux0 cjdKx3XgEo PSDlWFC5kGvkVLxza9UiGO SzJ44fwFBsc6I3KGVzhHwo pRUnJhGqgES8rV8jURnpis lno6uuldcl Jlglz7tpbx25iU57V48pJV ziMSAjZLG1FDVxODJrjMnw zn5qlV5eJi9+FUfpc8goy6 yihNa4BrAk JIIsmmEmmWneSDE6n3YkUd 15H0CzmXecz0EgRnu7ga60 rOVow3G0lTR8NSfvECCjxJ 3aXDkhYiB0 NQJlWfFzxP49mUXnZNzoYs 8hkYkwpAomOO9bFOSsnimm SJHxuK2iFDFhhVSueIvzAM 4wNTBpbjtm p800TkNpZZE2FJFseSZzV3 BzuH9nIvUnOKWzDUAcZ2Nw uESaLJiaF584IUiyWbY9LS DfnjCgR7He QBGynDdmFzK2o7Z4Wh7Wf7 RwvbeqYPB9ZFznVJPbGfKa OmDaMoM5K1XsYjy1UBDxdI bmDX1nP3Mq MFZruybjwxuhqPH2OFLnPU QvtM87aPLqDUxzXr4rb1U2 j800XXSxGSTjhG18Kq0dpN ogMTBwdCBU qI7ezlpsb2zwkfgwTiAyMN CoULk1NDf6XLHphEtbUkYp JZM4ErB7PYG0nJOwyD1nrR drntwijD3p Oyc+I53stA0fQMT8SOB1dt ctMVNiziLhRK47NN79Y4Fl PjwvdGFibGU+PGRpdiBzdH krJI6qCsCl l8qgl6YgXLocY2FtJXCgYF eeTba7ZVNjPPE1hCF8bJ6s QHBpZFzvc9V5iQT8Y5Jtai Vriz4fw7nx CNOnLZwmB95ecORjz9X0RX SxaJD6IPXzxLggXvZatG03 Oyc+TCTuvYhno6OcNdttc2 oyg9eokIj6 ImRgONSbskCehXujMUO9p1 PeDx31I89hSBsqNLBoKIUw LHZvKIHnhJgjqq5ctU0pDy 8+PGNvbCB3 bPU1bH2kTFLhReL0KRyyV2 98DyScjIVhNeuyf9nih5sy sPj7BgQcCBAkrhMqgUcfBB N0y5IgJp37 D55aAJhdMZHmIGFwPKVvBK TglFclbm8ciQ4iWk9+PC9j i7bmbz38gA83jND+PHRkIH B3zYcsPUbp NQHlaG5mHSujZiI4NSJoQl RcfB62zCZoPFqsNw7ovZew iYhzRU0oWNPqerwul684Kh Ayc2uoUGYv vPMySUmyBUS9Z84bd9Z1TR DxLCQlNRS9yFE7sZ6rqZsj bjogbGVmdDsgdmVydGljYW ieZRbmD857 IHRvcDsnPlBhdGllbnQgTm CwUTz3U4GbHfm3SRDlwFuu BW5mrUYoUSbyPp8nfSlriL sxHP2jYYRi roszh315FoChj4mxUBJmaB YmLVqwMMK6T09cw6W7RCCa ZCYrSOE5iZD0hY8vpTstwm ogbGVmdDsg sjGgoDzuBCsyJGhtS878KS RvcDsnPkJpcnRoIERhdGU6 JF13RZ15xUSlr8D5mZS6O8 BhZGRpbmct eatlxOS7BQDtWPEfpH44Si 7lxNmnJk9sJSUlVHM0ULZw vVUxB3OmaM9zWvDpMLVuYP SoJ2WnlUYo NPvfM919PIqvIgC0FIUkpo MyH7SlPKGlvNlpEkY1s5G6 Er6KR3L0SH94HL40vYMwu2 T8xSF8U7Wv DSExmknhoaaxcVW8PZLjNH NwdZ02Ii4kiDscUm2cWULg UHJ2GNAuvYSbI0QkqG4aSw AjMDAwMDAw F8TkqLNrNGhiM186UIlwAm A9PZLfteDlX6CzOMUzlCnc NjK5a1M3Tw2TEGe8BX73KL 24aOVgh7H6 cKI3F5GzOPGdqxfemhzyvL H1HJGcKHHabG53Gn7ujQze Bo4eHLLtHNC4LWJmxDLwT3 CypE7pDuPh PMAdKPPrE0GoiTXgUOijN4 14BZwsPeN9BKZhyuXlI3Bb GSAxkOpgOeE2q0W3Cg5QAU CtHC96AWN3 bTT2GY01YI76J0MoDyjszH FibGU+PHRhYmxlIHdpZHRo GQfoOEHqQyIbxJcmBS3jDy 9yZGVyLWNv bQovbKDtEzOcl5cqTHFzUM toZX0kqKzsC4IceCC8WRFb o8a2Ne31C95lW0ZfjUN+PG CdfND3cLX0 uP4sRmVtVaP1VZckR659Ih UhbQLzAqddl1qkq9qxxHe2 VbC3TBFwdeJecJnxQOS2h0 KiQk51O96q IHdpZHRoPSIxNSUiIHZhbG qtoh1tfP4hOr0+PGNvbCB3 gLM8bP1zNwFfByR8KTqyC3 49InRvcCIv Ahlve0yhi2vyyJa8OlTtZO AipyImzBizUHP4w7LzPz13 K7DqmIzpa0LpOmd4qj09kD Lvb2F3uQA6 C7NxPQIizsacxJFjxVbeGT 4mFRRabbkiYNQpxN8aVGVk A0b5SeWkZyK2ZTniM8Dfjt S4JUDhpXJo DWrcVAW4X81qa6V8UGVjQC QkSJD7jYB8yW3ulXuhckgn bGVmdDsgdmVydGljYWwtYW liF823NJFl nTpzGXSbmL3kHWEbzNTccX tzLI0hRIGpzpypOaAPCEEA COQWFVZKMwe7M9NiDsp1BP PxzVyfMY6l vTZvDSfsBn8erFeyrDzmFC 5vJZGtzicsYHQewW1pETXt qDYleJkhNI6lLVQhawvyy6 12DuSpIXG2 KUXgzCJeM6WhxV5sMxNlUA KdDSKlE5AjlLXuHUbkK779 QLetWoF7RDRpkuMjO9TkGH FsaWduOiB0 m0Z8Cp2aWn4xGF8zTOirIH 77CI86jIUap4S9zDG4Q1Kp SJAdwnzvxlfqiWA2EIHbTT ZwuX72jCYj NRkvVm3ry3J4v390LXBuRR MbaA00Eb5jhPtuFIGxqQKW qI8zfsllt9qfteusRgRxUP UoOUt4IVf7 NHRvhYrcTnSlCRS3UwW2ZU H1yBWrlK4laWsmmzovwJ4v Oyc+KhatAKFqwvH9Q8TiPn a9LTQvmGlb EU1rvHHsTVpfLf0udRzpdT ksIK7tYNVyypunVZQumK9a PAXetQKsjGvyIW0oQJXdnc ovg613CtDu PRM0HLZerMHuO3VquT0gGu EgHEBnSGMiI3JfxVSqNKlm K312SXcyJpL8GNBjtsDcF4 FsLWFsaWdu VfL5x8P9Nz9ICM4xlAR0W5 TwSry6KGChxDcoHS8yeGLw SIhuLi8ycQorfJxwXG5wOA BpbjtwYWRk zS0qUJWetOEfqKfjCK5rSP Gntvztz276GnUaNHB4UXIx cJEvZ0JesF1qTrTaATLnNV IwJ3XmjYGn WEwfS212NBssPoP3OYCatk KtG9MxIOWshQrjLoU6m3R1 Ek5RqSAeF2KwL7g4R7NqDz wvdHI+PC90 WVZbOJ12vHWcxGTkn1rarC k8DjGiEGEpXME4bLiwNQze v1RaEBZwH92xpOEgs4N3JG NvbGxhcHNl YhEnaHY3qB1bFQfgxvyth8 cngmvxSnpxg7kjkm68aD79 Z12rKNmnOPMiYBLtVEStUB ZzoFnnuo6z mL6pQi8+DNOyqQC4yKN4cF 3dGeAbGoQ0YBovU039DiWu mMDtYioxv1olm9oviId6Mm IwJSIgdmFs qGjuQIB9w0HqXl81I81xJH dpZHRoPSIyMCUiIHZhbGln eb8siO1kPp6+TB2pe1zsqf 78sH16bPX+ YNBfDVJ0yPvpZJdzOQLvaB 6tJMokPgY8JEReCyCkqG34 zDSxLHdfQq8joQxtpKmgHW 4wNTBpbjtm i794XdGii8aiBXDriVMvUT grIQB7F58sw6R4AIQhHIKy ZAF3uUV0iA8lbZevxouwoZ VmdDsgdmVy kClrRQulDAllM734BAUkcA caJqCoeFKtW4kusqEFVM0m OjwvdGQ+RDPvLYJ5aDqwCF mxZTOslX6j PUJuL3h6LxLhIdN5MVolL0 IitqM7KRDiuZUfGNMruGGR aM0vebzlc0rvvxsfFpZrAB NhNWt8YRo1 BIIzcUwuGiNbPEZ2NqL6ZI M2rDUfwY9nvMpycoieaA5t Oyc+RklOOjwvdGQ+PHRkIH C2oWuuQUwz WRVtbN7jEZUaU3i5NuUtLa A4TWzgT5MbqoX5GARfdLCb DHQfsNAFuJ5gbvfbp6wlku ogIzAwMDAw VLy6WTj0ZIRlrCnvYsWiPE N2HwD6DMX4xPTcnV7upJzz hlexkA1oBnk+TVJOOjwvdG Q+PHRkIHN0 bFzmRYcgOFVktL8pKDOnS7 w2RuKcJfM0WXtcQ8OzoqJ2 GMIwhXPnZPBupYJNqU9vzi pya5ysmenr OiBgFQUlKGn3ZYz4OGGolN boRaMqELZ1KrD1PAV5kAUj zO9glCnqccbbiZ7mKlx+UG E2RKQ1WN90 TB95X8NzGqqroVMxtFE+PH RhYmxlIHdpZHRoPScxMDAl CnMsgPgcXH7sEh6xJIMjEK NvbGxhcHNl OiBj (more content not included)... Normal [facility] Covid-19 PCR ([facility])on 05-21 SARS-CoV-2 (COVID-19) RNA VINITA+probe Ql (Unsp spec) Not detected Normal NOT DETECTED [facility] Comment on above: Result Comment: This test is not yet approved or cleared by the [place] FDA. When there are no FDA-approved or cleared tests available, and other criteria are met, FDA can make tests available under an emergency access mechanism called an Emergency Use Authorization (EUA). The EUA for this test is supported by the [place] of Health and Human Service's (HHS's) declaration [...] consistent with SARS-CoV-2. Performed By: #### C [facility] #### [facility] [address] [place] [address] Dr. Ventura Moe ED Note-Physicianon 06-01-20 ED Note-Physician Basic Information Time Seen: Alejandro MCGINNIS Skip 05/29/2022 10:42 Chief Complaint Mom reports congestion and coughing up phlegm since last night. Denies fever. History of Present Illness 26-year-old female comes to the ED for evaluation of cough and congestion. She presents with her children have similar symptoms. She states they were seen at [facility] recently where one of them has [...] for 7 day(s), 280 mL, Refill(s) 0, [facility]/pharmacy #[id number], 163, cm, 05/29/22 10:46:00 EST, Height/Length [...] Card In 3 days 06/01/2022 EST [address] [place] [address]- Business (1) Additional Instructions: Patient Education Upper Respiratory Infection, Adult Influenza, Adult Attestation Patient seen and evaluated by the physician creative assistant. Attending physician was present in the emergency department and supervised care. This visit was performed by both the physician and an APC. I performed all aspects of the MDM as documented. This report was transcribed using voice recognition software. Every effort was made to ensure accuracy, however, inadvertently computerized senior net engineer mistakes may be present. Appropriate healthcare PPE [...] Bones unremarkable. Signed By: Ruel Limon MD [facility] Comment on above: Result Comment: Elec tronically Signed By: Skip Allen PA-C\.br\Date and Time Signed: 05/29/22 11:47 EST\.br\Electronically Co-Signed By: Jona Almeida DO\.br\Date and Time Co-Signed: 06/01/22 07:33 EST INFLUENZA A AND B AGon 06-01 INFLUBNEGH SEE BELOW Normal [facility] Comment on above: Result Comment: Nega tive for Flu B protein antigen. Infection due to Flu B cannot be ruled out. Flu B antigen in the sample may be below the detection limit of the test. Performed By: #### V AGINT #### [facility] [address] [place] [address] Dr. Ventura Moe INFLUENZA A AG Positive Abnormal NEGATIVE SEE COMMENT [facility] Comment on above: Performed By: #### V AGINT #### [facility] [address] [place] [address] Dr. Ventura Moe INFLUENZA B AG Negative Normal NEGATIVE SEE COMMENT [facility] Comment on above: Performed By: #### V AGINT #### [facility] [address] [address] [address] Ventura Moe INFLUPOSH SEE BELOW Normal [facility] Comment on above: Result Comment: NOTE : Live attenuated influenzae vaccine viruses can cause a positive result for a rapid influenza diagnostic test if administered up to 7 days prior to rapid testing. Performed By: #### V AGINT #### [facility] [address] [place] [address] Dr. Ventura Moe INTERNAL CONTROLS Within Normal Limits Normal Wi thin Normal Limits [facility] Comment on above: Performed By: #### V AGINT #### [facility] [address] [place], [place] [id number] Dr. Ventura Moe Consent for Treatmenton Consent for Treatment [id number]:[id number] Normal [facility] Discharge Instructionson Discharge Instructions [id number]:[id number] Normal [facility] ED Clinical Summaryon 2021 ED Clinical Summary [address] [address] ED Clinical Summary Person Information Name: [facility] Age: 26 Years : 1995 Sex: Female Language: Nauruan PCP: Gomez Card MD Marital Status: Single [...] 05/29/2022 12:00:28 05/29/2022 12:00:28 05/29/2022 12:00:28 ADDRESS: [address] [place] [address] DR SHAYLA Mckay [facility] [phone] PHYS DOC NOTES: MEDICAL INFORMATION: Prescriptions Given: New Medications [id number], [address], [place] [id number], [phone] brompheniramine/dextro methorphan/PSE (Bromfed DM oral syrup) 10 [...] Follow up: With: Address: When: Gomez Card [address] [place] [address], [place] [address] Business (1) In 3 days 06/01/2022 DIAGNOSIS: Cough; Upper respiratory infection Normal [facility] ED Patient Education Noteon 05-29-2022 ED Patient [...] to help relieve symptoms, such as: ? Vyeu-bmd-nzcpcct cold medicines. ? Cough suppressants. Coughing is [...] other clear broths. General instructions ? Take sfmu-ucb-utrhhtn and prescription medicines only as told by [...] and water are not available, use hand assistant director of admissions. ? Avoid touching your mouth, face, eyes, [...] common infecti (more content not included)... Normal [facility] ED Patient Summaryon 022 ED Patient Summary [place] [id number] Patient Discharge Instructions Person Information Name: MICHAEL SEQUEIRA Age: 26 Years Arrival Date: 05/29/2022 10:40:59 Discharge Diagnosis: Cough; Upper respiratory infection Primary Care Physician: Gomez Card MD Provider Information Primary Provider: Jona Almeida DO Advanced Development Coach:Skip Allen PA-C The exam and treatment you received in the Emergency Department were for an urgent problem and are not intended as complete care. It is important that you follow up with a doctor, nurse practitioner, or physician?s creative assistant for ongoing care. If your symptoms [...] Follow-up Instructions: With: Address: When: Gomez Savageasad [address] [place] [address], [place] [address] Business (1) In 3 days [...] opioids can be used to help relieve mrppnzcb-sp-vnekiy pain and are often prescribed following a [...] be struggling with addiction, tell your health direct care supervisor and ask for guidance or call [facility] National Help (more content not included)... Normal [facility] XR Chest 2 Viewson 2 XR Chest [...] MD Transcribed by: SISSY Technologist: JESUS Normal [facility] PAP ACOG PANEL 2: 21 to 29on 03-25-2022 . . [facility] Comment on above: Performed By: #### [id number] #### [facility] [address] [address] [address] Ventura Moe Age Gdln ACOG Testing - [facility] Comment on above: Performed By: #### [id number] #### [facility] [address] [address] [address] Ventura Moe DIAGNOSIS: Comment [facility] Comment on above: Result Comment: NEGA TIVE FOR INTRAEPITHELIAL LESION OR MALIGNANCY. Performed By: #### [id number] #### [facility] [address] [address] [address] Ventura Moe Methodology: Comment [facility] Comment on above: Result Comment: This liquid based ThinPrep(R) pap test was screened with the use of an image guided system. Performed By: #### [id number] #### [facility] [address] [place] [address] Dr. Ventura Moe Note: Comment Normal [facility] Comment on above: Result Comment: The Pap smear is a screening test designed to aid in the detection of premalignant and malignant conditions of the uterine cervix. It is not a diagnostic procedure and should not be used as the sole means of detecting cervical cancer. Both false-positive and false-negative reports do occur. . Performed By: #### [id number] #### [facility] [address] [place] [address] Dr. Ventura Moe Performed by: Comment Normal [facility] Comment on above: Result Comment: Joshua Callahan, Animal Shelter Manager (ASCP) Performed By: #### [id number] #### [facility] [address] [place] [address] Dr. Ventura Moe Reflex Criteria: Comment Normal [facility] Comment on above: Result Comment: The HPV DNA reflex criteria were not met with this specimen result therefore, no HPV testing was performed. . Performed By: #### [id number] #### [facility] [address] [place] [address] Dr. Ventura Moe Specimen adequacy: Comment Normal [facility] Comment on above: Result Comment: Sati sfactory for evaluation. Endocervical and/or squamous metaplastic cells (endocervical component) are present. Performed By: #### [id number] #### [facility] [address] [place] [address] Dr. Ventura Moe CHLAMYDIA/GONOCOCCUS VINITA (SW AB/URINE/PAPon 03-20-2022 Chlamydia trachomatis, [place] Negative Normal Negative [facility] Comment on above: Performed By: #### C T/NGNA #### [facility] [address] [place] [address] Dr. Ventura Moe Neisseria gonorrhoeae, V[place]A Negative Normal Negative [facility] Comment on above: Performed By: #### C T/NGNA #### [facility] Laboratory [address] [address] [address] Ventura Moe VAGINITIS/VAGINOSIS DNA PROB [facility] 03-19-2022 Batool species Negative Normal Negative [facility] Comment on above: Performed By: #### V AGINT #### [facility] [address] [address] [address] Ventura Moe Gardnerella vaginalis Positive Abnormal Negative [facility] Comment on above: Performed By: #### V AGINT #### [facility] [address] [address] [address] Ventura Moe Trichomonas vaginalis Negative Normal Negative [facility] Comment on above: Performed By: #### V AGINT #### [facility] [address] [address] [address] Ventura Moe Vital Signs Date Time Vital Sign Value Performing Clinician Faci lity 05-29-2022 10:44-0500 Body temperature 98.06 [degF] Jona Brennane [facility] 05-29-2022 10:44-0500 Diastolic blood pressure 82 mm[Hg] Jona [employer] [facility] 05-29-2022 10:44-0500 Heart rate 95 /min Jona [employer] [facility] 05-29-2022 10:44-0500 Respiratory rate 18 /min Jona [employer] [facility] 05-29-2022 10:44-0500 SaO2% (BldA) [Mass fraction] 98 % Jona Juan Pablo [facility] 05-29-2022 10:44-0500 Systolic blood pressure 123 mm[Hg] Jona [employer] [facility] Encounters Encounter Date Encounter Type Care Provider Facility Start: 12-07-2023 End: 12-07-2023 ambulatory SORIN AGUILAR Not Available Start: 11-03-2023 End: 11-03-2023 ambulatory JUAN ALBERTO MCDERMOTT Not Available Start: 09-18-2022 End: 09-18-[address] SORIN AGUILAR . Facility:[facility] Start: 09-12-2022 Encounter for preprocedural respiratory examination DR SORIN AGUILAR . [facility] Start: 09-07-2022 End: 09-08-[address] [...] 05-29-2022 Emergency department patient visit Jona Almeida Facility:[facility] Start: 05-29-2022 End: 05-29-2022 Emergency department patient visit Jona Almeida [facility] Start: 03-17-2022 End: 03-17-[address] SORIN AGUILAR . Facility: Procedures Date Procedure Procedure Detail Performing Clinician of child (finding) Hakeem Almeida Hemorrhoids (disorder) Jona Almeida Payers Date Payer Category Payer Unknown [id number] 2.16.8 [id number] 1993 Unknown [id number] 2.16.84 [id number] 1993 Unknown [id number] 2.16.84 [id number] 1993 Unknown [id number] 2.16.84 [id number] 1993 Unknown [id number] 2.16.84 [id number] 1993 Unknown [id number] 2.16.84 [id number] 1993 Unknown [id number] 2.16.84 [id number] 1993 Unknown [id number] 2.16.84 [id number] 1993 Unknown [id number] 2.16.84 [id number] 1993 Unknown [id number] 2.16.84 [id number] 1993 Unknown [id number] 2.16.84 [id number] 1959 Unknown [id number] Social History Date Type Detail Facility Start: 04-24-2020 Tobacco smoking status Light t obacco smoker (finding) [facility] Sex Assigned At Female [facility] Functional Status Date Assessment Result Facility 05-29-2022 Functional Status N/A [facility] Clinical Note 09-18-2022 Note Date & Type Note Facility 09-18-2022 Note OPERATIVE NOTE OPERATION DATE: 09/18/2022 PROCEDURE: Robotic assisted bilateral laparoscopic salpingectomy. PREOPERATIVE DIAGNOSIS: Desires permanent sterilization, multiparity. POSTOPERATIVE DIAGNOSIS: Desires permanent sterilization, multiparity. ANESTHESIA: General. SURGEON: Sorin Aguilar D.O. HARMONIC ANALYST: DAMIAN Pinto URINE OUTPUT: Yellow and clear. [...] and needle counts were correct x2. [facility] Discharge instructions 05-29-2022 Note Date & Type [...] medicines to help relieve symptoms, such as: Egmf-ays-yyjjxet cold medicines. Cough suppressants. Coughing is a [...] and other clear broths. General instructions Take cwdl-uvr-xmbjaia and prescription medicines only as told by [...] and water are not available, use hand assistant director of admissions. ?Avoid touching your mouth, face, eyes, or [...] 12/01/2001 Document Revised: 06/15/2019 Document Reviewed: 01/21/2018 [employer] Patient Education 2020 IRIS-RFID. 05/29/2022 12:00:28 Influenza, Adult Influenza, Adult Influenza, [...] Your health care provider may recommend: Taking shmu-csb-nmqtspd medicines. Drinking plenty of fluids. In many [...] juice, and low-calorie sports drinks. Eat bland, auox-qa-dlnlhu foods in small amounts as you are able. These foods include bananas, applesauce, rice, lean meats, toast, and crackers. Avoid drinking fluids that contain a lot of sugar or caffeine, such as energy drinks, regular sports drinks, and soda. Avoid alcohol. Avoid spicy or fatty foods. General instructions Take fmuw-iko-jdpiwyc and prescription medicines only as told by [...] water are not available, use alcohol-based hand assistant director of admissions. Keep all follow-up visits as told by [...] 2001 Document Revised: 09/07/2019 Document Reviewed: 11/23/2018 [employer] Patient Education 2020 IRIS-RFID. Follow Up Care 05/29/2022 10:41:29 With:Gomez Card Address: [address] [place] [phone] Business (1) When:06/01/2022 11:40:58 [facility] Evaluation + Plan note Note Date & Type Note Facility Evaluation + Plan note No data available for this section [facility] Progress note Note Date & Type Note Facility Progress note No data available for this section [facility] Summary Purpose Family History No Family History Records FoundNo Family History Records FoundNo Family History Records Found Advance Directives No Advanced Directives Records FoundNo Advanced Directives Records FoundNo Advanced Directives Records Found Additional Source Comments Patient Care team informatio n (unrecognized section and content) Personnel Name: Gomez Card MD Address: Address: [facility] [place] [address]- INFORMATION SOURCE (unrecogn ized section and content) DATE CREATED AUTHOR 06/01/[address] [facility] DATE CREATED AUTHOR AUTHOR'S ORGANIZ ATION 10/28/2022 [facility] DATE CREATED AUTHOR AUTHOR'S ORGANIZ ATION 12/09/2023 [facility] EPIC FOR RECORDS PERTAINING TO [...] BE BASED ON THE PRIMARY CLINICAL RECORDS. [facility] [employer] provides no warranty or guarantee of the accuracy or completeness of information in this document.
[2023-12-20 12:02] LABS: Basophils Percent Auto 0.4 % (0.2-2.0); Eosinophils Absolute Auto 0.1 10^3/uL (0.0-0.7); Eosinophils Percent Auto 0.9 % (0.9-7.0); Hematocrit 40.6 % (36.0-48.0); Hemoglobin 13.5 g/dL (12.0-16.0); Immature Granulocytes Abs Auto 0.02 10^3/uL (0.00-0.03); Immature Granulocytes Pct Auto 0.3 % (0.0-0.5); Lymphocytes Absolute Auto 2.2 10^3/uL (1.2-3.8); Lymphocytes Percent Auto 31.8 % (20.5-60.0); Mean Corpuscular HGB Conc 33.3 g/dL (29.9-35.2); Mean Corpuscular Hemoglobin 29.9 pg (26.7-34.0); Mean Platelet Volume 9.3 fL (9.5-13.5); Monocytes Absolute Auto 0.6 10^3/uL (0.3-0.8); Monocytes Percent Auto 8.8 % (1.7-12.0); Neutrophils Absolute Auto 4.1 10^3/uL (1.4-6.5); Neutrophils Percent Auto 57.8 % (43.0-75.0); Platelet Count 263 10^3/uL (150-450); Red Blood Count 4.51 10^6/uL (4.20-5.40); Red Cell Distribution Width 13.5 % (11.0-15.0)
[2023-12-20 12:10] LABS: Estimated Average Glucose 103 mg/dL; Glycohemoglobin A1C 5.2 % (4.5-6.2)
[2023-12-20 12:48] LABS: Alanine Aminotransferase 21 U/L (14-59); Albumin Globulin Ratio 1.1; Albumin Level 4.4 g/dL (3.4-5.0); Alkaline Phosphatase 64 U/L (46-116); Anion Gap 12.7; Aspartate Amino Transferase 12 U/L (15-37); BUN Creatinine Ratio 11.9; Bilirubin Total 0.4 mg/dL (0.2-1.0); Calcium 9.1 mg/dL (8.5-10.1); Carbon Dioxide 24.3 mmol/L (21.0-32.0); Chloride 103 mmol/L (98-107); Estimated GFR (African America >60 (>=60); Estimated GFR (Non-African Ame >60 (>=60); Globulin 3.9 g/dL; Glucose 86 mg/dL (74-106); Sodium 136 mmol/L (136-145); Thyroid Stimulating Hormone 1.011 uIU/mL (0.358-3.740); Total Protein 8.3 g/dL (6.4-8.2)
[2023-12-20 13:02] LABS: Free T4 1.05 ng/dL (0.76-1.46)
== END 2023-12-20 11:44 | disposition home or self-care (01) ==
LOC: LAB 11:45
PROVIDERS: PCP Nurse Practitioner Family; Visit Provider Family Medicine
DX: R53.83 Other fatigue (principal); R73.09 Other abnormal glucose
CPT/HCPCS: 36415; 80053; 82728; 83036; 84439; 84443; 85025

== ENCOUNTER 2024-02-28 10:19 | Outpatient (REF) | payer OTHER, SELFPAY ==
--- OUTSIDE RECORDS SUMMARY | 2024-02-28 10:40 | XMS_ITS | CCD ---
Author Organization [facility] Care Team Providers Care Clinical Unit Coordinator Name Role Phone Gomez Card Primary Care [...] Drug allergy Weal (disorder) [facility] (1 source) Sulfonamides (Antibiotic) Drug allergy (disorder) 6 [facility] Repository Medications Current Medications Medication Drug Class(es) Dates Sig (Normalized) Sig (Original) brompheniramine maleate 0.4 mg/ml / dextromethorphan hydrobromide 2 mg/ml / pseudoephedrine hydrochloride 6 mg/ml oral solution (1 source) alpha-Adrenergic Agonist, Uncompetitive R-dmhgry-M-aspartat e Receptor Antagonist, Sigma-1 Agonist Start: 05-29-2022 End: 06-05-2022 take 10 mL by mouth four times daily for cough and congestion Bromfed DM oral syrup 10 mL, Oral, QID for cough and congestion for 7 day(s), 280 mL, Refill(s) 0, [facility]/pharmacy #[id number], 163, cm, 05/29/22 10:46:00 EST, Height/Length Dosing, 71, kg, 05/29/22 10:46:00 EST, Weight Dosing Start Date: 05/29/22 Stop Date: 06/05/22 Status: Ordered oxybutynin chloride 5 mg oral tablet (1 source) Cholinergic Muscarinic Antagonist Start: 04-24-2020 oxybutynin 5 mg Tab See Instructions, PRN for urinary discomfort, 2 tab(s) Oral at night for bladder urgency, # 60 tab(s), Refills(s) 6, Pharmacy: [facility]/pharmacy #[id number], 162, cm, 04/24/20 10:24:00 EST, Height/Length [...] 09-18-2022 BASO # 0.0 103/ul Normal 0.0-0.1 [facility] Comment on above: Performed By: #### C BC #### [facility] [address] [place] [address] Dr. Ventura Moe Basophils/100 WBC (Bld) 0.8 % Normal 0.2-2.0 [facility] Comment on above: Performed By: #### C BC #### [facility] [address] [place] [address] Dr. Ventura Moe EO # 0.1 103/ul Normal 0.0-0.7 [facility] Comment on above: Performed By: #### C BC #### [facility] [address] [place] [address] Dr. Ventura Moe Eosinophils/100 WBC (Bld) 1.2 % Normal 0.9-7.0 [facility] Comment on above: Performed By: #### C BC #### [facility] [address] [place] [address] Dr. Ventura Moe Erythrocyte distribution width (RBC) [Ratio] 14.0 % Normal 11.0-15.0 [facility] Comment on above: Performed By: #### C BC #### [facility] [address] [place] [address] Dr. Ventura Moe Hematocrit (Bld) [Volume fraction] 36.9 % Normal 36.0-48.0 [facility] Comment on above: Performed By: #### C BC #### [facility] [address] [place] [address] Dr. Ventura Moe Hemoglobin (Bld) [Mass/Vol] 12.4 g/dL Normal 12.0-16.0 [facility] Comment on above: Performed By: #### C BC #### [facility] [address] [place] [address] Dr. Ventura Moe IG # 0.01 10e3/ul Normal 0.00-0.03 [facility] Comment on above: Performed By: #### C BC #### [facility] [address] [place] [address] Dr. Ventura Moe IG % 0.2 % Normal 0.0-0.5 [facility] Comment on above: Performed By: #### C BC #### [facility] [address] [address] [address] Ventura Moe LYMPH # 2.0 103/ul Normal 1.2-3.8 [facility] Comment on above: Performed By: #### C BC #### [facility] [address] [place] [address] Dr. Ventura Moe Lymphocytes/100 WBC (Bld) 40.6 % Normal 20.5-60.0 [facility] Comment on above: Performed By: #### C BC #### [facility] [address] [place] [address] Dr. Ventura Moe MANUAL DIFF REQ NO Normal [facility] Comment on above: Performed By: #### C BC #### [facility] [address] [place] [address] Dr. Ventura Moe MCH (RBC) [Entitic mass] 29.2 pg Normal 26.7-34.0 [facility] Comment on above: Performed By: #### C BC #### [facility] [address] [place] [address] Dr. Ventura Meo MCHC (RBC) [Mass/Vol] 33.6 g/dL Normal 29.9-35.2 [facility] Comment on above: Performed By: #### C BC #### [facility] [address] [place] [address] Dr. Ventura Moe MCV (RBC) [Entitic vol] 87.0 fL Normal 81.0-99.0 [facility] Comment on above: Performed By: #### C BC #### [facility] [address] [place] [address] Dr. Ventura Moe MONO # 0.6 103/ul Normal 0.3-0.8 [facility] Comment on above: Performed By: #### C BC #### [facility] [address] [place] [address] Dr. Ventura Moe Monocytes/100 WBC (Bld) 12.4 % Critically high 1.7-12.0 [facility] Comment on above: Performed By: #### C BC #### [facility] [address] [place] [address] Dr. Ventura Moe NEUT # 2.2 103/ul Normal 1.4-6.5 [facility] Comment on above: Performed By: #### C BC #### [facility] [address] [place] [address] Dr. Ventura Moe Neutrophils/100 WBC (Bld) 44.8 % Normal 43.0-75.0 [facility] Comment on above: Performed By: #### C BC #### [facility] [address] [place] [address] Dr. Ventura Moe Platelet mean volume (Bld) [Entitic vol] 9.4 fL Critically low 9.5-13.5 [facility] Comment on above: Performed By: #### C BC #### [facility] [address] [place] [address] Dr. Ventura Moe PLT 266 103/ul Normal 150-450 [facility] Comment on above: Performed By: #### C BC #### [facility] [address] [place] [address] Dr. Ventura Moe RBC 4.24 106/ul Normal 4.20-5.40 [facility] Comment on above: Performed By: #### C BC #### [facility] [address] [place] [address] Dr. Ventura Moe WBC 4.9 103/ul Normal 4.0-11.0 [facility] Comment on above: Performed By: #### C BC #### [facility] [address] [place] [address] Dr. Ventura Moe PREG QUANT HCGon 09-18-2022 HCG QUANT <1 Normal [facility] Comment on above: Performed By: #### P REGQNT #### [facility] [address] [place] [address] Dr. Ventura Moe HCG RANGE SEE BELOW Normal [facility] Comment on above: Result Comment: 5-50 0.2-1 WEEK 50-500 1-2 WEEKS 100-5,000 2-3 WEEKS 500-10,000 3-4 WEEKS 1,000-50,000 4-5 WEEKS 10,000-100,000 5-6 WEEKS 15,000-200,000 6-8 WEEKS 10,000-100,000 2-3 MONTHS Performed By: #### P REGQNT #### [facility] [address] [place] [address] Dr. Ventura Moe XR CHEST 2 Von [...] [place] Date: 2022-09-07 09:08 Normal [facility] CHLAMYDIA/GONOCOCCUS VINITA (SW AB/URINE/PAPon 08-03-2022 Chlamydia trachomatis, VINITA Negative Normal Negative [facility] Comment on above: Performed By: #### C T/NGNA #### [facility] [address] [place] [address] Dr. Ventura Moe Neisseria gonorrhoeae, VINITA Negative Normal Negative [facility] Comment on above: Performed By: #### C T/NGNA #### [facility] [address] [place] [address] Dr. Ventura Moe VAGINITIS/VAGINOSIS DNA PROB Charles 08-01-2022 Batool species Negative Normal Negative [facility] Comment on above: Performed By: #### V AGINT #### [facility] [address] [place] [address] Dr. Ventura Moe Gardnerella vaginalis Negative Normal Negative [facility] Comment on above: Performed By: #### V AGINT #### [facility] [address] [place] [address] Dr. Ventura Moe Trichomonas vaginalis Negative Normal Negative [facility] Comment on above: Performed By: #### V AGINT #### [facility] [address] [place] [address] Dr. Ventura Moe HERPES SIMPLEX VIRUS (HSV) C ULTUREon 07-25-2022 HSV Culture/Type Comment Abnormal [facility] Comment on above: Result Comment: Posi tive for Herpes simplex virus type-2. Typing was confirmed by monoclonal antibody microscopic immunofluorescence. Performed By: #### H SVCUL #### [facility] [address] [place] [address] Dr. Ventura Moe US PELVIS TRANSVAGon 023 [...] GISELA TIDWELL Date: 2022-07-09 15:34 Normal [facility] CHLAMYDIA/GONOCOCCUS VINITA (SW AB/URINE/PAPon 07-06-2022 Chlamydia trachomatis, VINITA Negative Normal Negative [facility] Comment on above: Performed By: #### V AGINT #### [facility] [address] [place] [address] Dr. Ventura Moe Neisseria gonorrhoeae, VINITA Negative Normal Negative [facility] Comment on above: Performed By: #### V AGINT #### [facility] [address] [place] [address] Dr. Ventura Moe VAGINITIS/VAGINOSIS DNA PROB Charles 07-04-2022 Batool species Negative Normal Negative [facility] Comment on above: Performed By: #### V AGINT #### [facility] [address] [place] [address] Dr. Ventura Moe Gardnerella vaginalis Positive Abnormal Negative [facility] Comment on above: Performed By: #### V AGINT #### [facility] [address] [place] [address] Dr. Ventura Moe Trichomonas vaginalis Negative Normal Negative [facility] Comment on above: Performed By: #### V AGINT #### [facility] [address] [place] [address] Dr. Ventura Moe Coding Summary.on 06-01-2022 Coding Summary. [id number] Gh 0bWw+PGhlYWQ+SJ8HCXFpY 72jrKUdfC7ZW6cVOL0ZIOP LVUANIP2LGF3ukNW9IMnnL 2VybiAv GbgvuNOmAA64TOl3FDN5kM xzGKistU2zzZUnV1o9XgIr BB53qL63NVupOYLhPoV4Rp ZpbjsgbWFy C0crLyZgzFTjSgv+PHRhYm xlIHdpZHRoPScxMDAlJyBz lMlxEK0mIw2pIBNfBSPjyX xhcHNlOiBj z4kmLOGySRmoSE4otBfcA3 GqnMG2ANIgf7b1Mw70nRO+ RQMtAHK3eOekIDooe098Jt Mwp6fsGJX7 pGRsQLcrLVU5W38tf0K7IG RgOZSwJLT3eWG7pP2aiEav xrurD3CosCBdCqS2XGS0iC NcpY9qwAww jshcaL7iSqw+J63XOQ3OOX WKHF3OVef4Z9HmYngvhNO+ ZE52LVSmHL41zQKpeCJdo1 oluUw7RpPu VYEhYFQ7gUxsDUwqe6VxKX SjN79bvCOlo5F0TSDhqPtg zJYlPzTwcAF3uC2jYZxtmz ouf0jtjnsa Tktoc0npkh90rY10M58mBV aeXWWjSGC8NHMeGULltPgu ez2qiE7rQw0+RFiap6cjt5 bfsYk6BpAh EOCifrHtgWsjEWE6l5WsAu 22K5PguAnme2VzEhm9yc04 iFNhi5S0oEF5FQhdKLTdsI 5jHBsvGdN0 FYQvApKsrN75uGUgYXgiCw 5nrGnivCsgMK2tRXLxgshe EWWrxI8vVUSbxWKkyZpgSU 4wNTBpbjtm j335JmNmARE5PRZufEGcP1 HuuH1xCvQcWPJsTHOtN5Sy lKDoBMnlV208AXtrYuN6UT WrcpDjV1Lq MYUyeRwfOaO0a0M5Xw1Wk6 WbigigZDL7VOzzRBEtBiZn PxEnAtS0F6BzOfv5JFUzlF gwEJ7kK5Ps VCNvsqcsdujnhXS2STEgZC ZfrX61yIEvMWzzSc8vg6O6 u272HUJuMPKbyN30Zl9ouI ogMTBwdCBU kA2sgmicr4ofqjrcHkZtIQ QbOQb5DUr9CPTyoGjeXzMn LLX4GmO9AAO0aEFfxL9mlA oyxnsemF0o Oyc+H98peO8qVAH6PQP5no kpXJBqwiIeLO73LC16Y5Do PjwvdGFibGU+PGRpdiBzdH sgLB2iZqCh q1mzd8TsLDptT0EzBIMkQT zmIct0PAMkKXI7rSG2nM3n VKMvRJkcm4M5jYM1E0Jfpr Ggkm2pc1te ZHVbYYnhN18tdYYog8G2EX QwhCN2RESynNqyOdHtlO64 Oyc+OWLtzOrtt1JrSbttv5 jwe5vrlSd7 QaHmIWRtsiUjlJkcNSX5w6 MnYj54N15nCJgfEBVkENLh NPPoCMEzxPjcnh6szF3fVw 8+PGNvbCB3 gVB4mT2xZXMnKdV2RIeaN4 07JkAfpWZpCdvli0osd8jq lZm4PgByODTsnzOnlYcdQQ B5s1NyPz28 K87sPOpuQPXeHIGjJSFxTS OmdZcdmq9pfW3bDo4+PC9j f8ulsk00kK52eQA+PHRkIH I7nBnkROqc SZSxxX9uSWxoYzJ5FSWpBa YphV64aWRdSPyhQa0mzHha oWaaJW6sTTCwjryat107Qe Sef5pwVKAa kZNxZWtxGKS8M04nm5G2FH VnEJMvUUI2tLR6iM2hcGgl bjogbGVmdDsgdmVydGljYW neZAiyU070 IHRvcDsnPlBhdGllbnQgTm XfCLe6D1DyHor5FAHspUox QA6kcUOfAXukPw4zpTsufF dcNB8wKDPo likfj597YyGhl5hqPVAimM LuOWynRTB2S50kc6D8NIIs TSMrYQU0vQA0eW8moNwgsk ogbGVmdDsg vbMsqAbvCAyvITfeN561FW RvcDsnPkJpcnRoIERhdGU6 BX82PB62rNFgk7S1pZR8L4 BhZGRpbmct qmwjsKL0VKUmTALlbV83Lu 7gdJtfZp1aTQHbSXO8WEFc kLTgG0BepG5pXjTqVNNkIJ WuB5QqzQJa DFvpA078NFzjCmD4SVShjy SvM3PhNPWsfJvrWtO5h2P5 Hw6KE4D2MA40BY09jTXtc1 E3wPN6D6Bo PKObmvkmgucrdST2CZJgAN WibP88Ji6pxHejKl2tERVf WTT2VOEmvDTjT8KlxW4uCt AjMDAwMDAw B4VbwJSpJYzlA040OFqoAo E0TWCblrKxN9TlIMJbqMgu ZuE7m1P3Bg0ZSUi0FW05KS 97bAAtw2Q3 fHB2V8DqNMXvpxgxlxyypH R8YREkHESaqR84Ll1pfSex Zu9eROHgFOB2BOLgyLDgC9 JprN1qCiDt MEHmIVSkT3PgeDApZFwkA7 00OFgfJjI9RLGnpbAnA0Yy MUCvcDxbWoF0t5Q2Mu8MMQ PjZN12RJR6 wBC9ZC60MH71T7BaWmgonJ FibGU+PHRhYmxlIHdpZHRo YLcvCTJsJxSyuNyjYL9vEk 9yZGVyLWNv vQedpIWpHhQii5wqVNTwGU puDL4tfSwtW9JkqBC7FAGi z4z6Pk01W80oJ8NkgHV+PG IwtNP0iTA0 iD3uWwHmVjJ4BThtV971Pp FtbDCjAuaye6nld2ocyBf2 VlD4TSPoevVclJaxHMM4n4 KdKq99E14b IHdpZHRoPSIxNSUiIHZhbG iakq9sfV9zTr6+PGNvbCB3 aPX3sQ3jBaMoItB9ARifJ6 49InRvcCIv Lfshz7uwb2kaaMs1TsJhTE OxugPotAtmGVH1l7BwVf58 F4RodEffc0MhVqg9ce07bT Atm4G5iJT7 Z3JcAZTscjaxlRJrsZoxWO 1tNCSybphwGZPixD8yULYu V6o7YdKkDeA4MPmjC0Jzia X0KVExbRXn EZpmTJX1O78ph7V5CSTpUO IeNPI1jOE6wV5gbYieuyom bGVmdDsgdmVydGljYWwtYW sxB352BZRc bGcyKDFjxS2xIMXeaCZcaX nuMF3nXUTpogdpZyMENHVM WHXUOOFJJsw6C6QfHsq9XW QtcLzuKY3p jQSoJXcaAl0qdCakrYptAX 0uBDTclkbuMYOqlP6tMCHc tXVjnIgvQB4mVPBbzcpua1 61TdLaOLV6 TRGywHMtT9ZrtI2iElNsEA CtFOYoP6FwgFQcDNtoG520 DLzpJqA7JGApqpKfB2YkVA FsaWduOiB0 v8Y6Tc3bYn3xCC4iYXszIX 81DF40xABzc9W0rUX5X3Sv AIXkigapxueqvWP3MKAzSH XuoS13tMQt NMwaCb9bk7H3m302TDQhGD ZmbV56Sw2kwDwiBKSmrGFH yH5dltkdk4izkxqxHuXgAC XvZXn6REq1 STRzqQsbVsTlYQY2JkQ7VL V4mYGqjL2chYwxbfnmkJ6t Oyc+ZivzPCJfddE7G9HmPy q9HEEqcGzt VJ4jjMBuQGivDw0ixPhhpL nfYB8fRUQcfmtkBKVjbG7p KMLwuNDpzHwkKP3jHTPbko sow831IxUt UFA5JNVpfCJrL9DnvW7zUu GaLXQqPIGwJ8FttHPpITmv Q525YIprAgJ1RAYdhqJrH3 FsLWFsaWdu UoX1y2P4Ez3PEZ1itPR7S0 ZfXzu2WQByeRjzLM2omHDf EIqqVz2enBzhkZlzJR4gET BpbjtwYWRk lU2dUEIogHLssHcbYO1gZQ Lwokhyj556QbElKHR9WDJb pNCrL8RgnK0wIzJhUZClPE ArJ0WamFEw QQucE786CHbkMcG9WQLjul HvJ5PpJQRdaRqgSnS1c6O7 Fz0MuHEdY4HwS9t0K0HvOm wvdHI+PC90 CVDaHL30uFIcvWMal6udeK a9WjUdFTIxDWK8sLdmBTax z3VmXCUkL11otYEwj6B7NJ NvbGxhcHNl CsSvvBX7lE3eXDpghszfa2 zcgnkhNqlxj4fmwu68oV50 G05yTHcqLIPpQTKpRGDqKT JgxBnett5z sQ4zFt2+ZOSgoSS8lXJ9dU 6xPvMjWaJ0IQibK058DgUz qOCnVflrm3yek8qelBa4Pl IwJSIgdmFs uMxrKZD9p7NhTo74T20dTP dpZHRoPSIyMCUiIHZhbGln hq8dyQ6eEr1+EJ7rc3nrir 90uA71zDA+ LMKmLLK5pRkiKItcFHWxaC 8vMEbnWyS4GZCpLqWnaB26 jDXeRKkjIz8raGkaiSnaQV 4wNTBpbjtm w357NwLjx8idDQChkVFuSS vnZDB7J36ia0C0HHFhCZMe ILG4eND0yW1eeCvfcovytM VmdDsgdmVy zSzoCVvxRTpnB526YEZdqH fpMhMhiRAtN4niaxLVWH1m OjwvdGQ+VULzORG4bBrhLN rzYSYwaQ2n FJWkB9q5ZkStGdC8EKsxD1 NpdpA4NFLheNTtZLCaxXJL gJ8xkfvur3yztfiaEiCcAB HrWHz7SDu4 WJTmgFwmGaEfHZT5DqQ5YF W9gYKllW4gdYhnclwriU0s Oyc+RklOOjwvdGQ+PHRkIH B4xHhvGCnq GYMalS3jYLBrE7a1QaDzJw B7PBfwE8EtkpE4BYBxqGZs RVUanMTYhE9waucrp0geht ogIzAwMDAw ENe4QBe9YBWonYvySjEmLI V0QeH6ZGH5eQBosE1ynTcw tucxtP0xUmm+TVJOOjwvdG Q+PHRkIHN0 xYwpHQgfTPHqlL8iFYCpS4 a3QqTbEoS4PVbjH8WphlG3 FWIqgACgINXmcSYGxL8zqu url4gthkwk RpZkFOIpWWm6DBj0YIBbiM ilCxPkXMC0PxX2KHK2cVSl iH7nnRfsgglmvG2rKix+UG D2BBU4BG27 PZ14X2PtMwekxWLsmUD+PH RhYmxlIHdpZHRoPScxMDAl XhYtxVahKS7iZb1mKNCrHD NvbGxhcHNl OiBj (more content not included)... Normal [facility] Covid-19 PCR ([facility])on 05-21 SARS-CoV-2 (COVID-19) RNA VINITA+probe Ql (Unsp spec) Not detected Normal NOT DETECTED [facility] Comment on above: Result Comment: This test is not yet approved or cleared by the [place] FDA. When there are no FDA-approved or cleared tests available, and other criteria are met, FDA can make tests available under an emergency access mechanism called an Emergency Use Authorization (EUA). The EUA for this test is supported by the [place] of Health and Human Service's (HHS's) declaration [...] consistent with SARS-CoV-2. Performed By: #### C [facility] #### [facility] [address] [place] [address] Dr. Ventura Moe ED Note-Physicianon 06-01-20 ED Note-Physician Basic Information Time Seen: Alejandro MCGINNIS Skip 05/29/2022 10:42 Chief Complaint Mom reports congestion and coughing up phlegm since last night. Denies fever. History of Present Illness 26-year-old female comes to the ED for evaluation of cough and congestion. She presents with her children have similar symptoms. She states they were seen at [facility] recently where one of them has [...] for 7 day(s), 280 mL, Refill(s) 0, [facility]/pharmacy #[id number], 163, cm, 05/29/22 10:46:00 EST, Height/Length [...] Card In 3 days 06/01/2022 EST [address] [place] [address]- Business (1) Additional Instructions: Patient Education Upper Respiratory Infection, Adult Influenza, Adult Attestation Patient seen and evaluated by the physician certified medical technician assistant. Attending physician was present in the emergency department and supervised care. This visit was performed by both the physician and an APC. I performed all aspects of the MDM as documented. This report was transcribed using voice recognition software. Every effort was made to ensure accuracy, however, inadvertently computerized income tax investigator mistakes may be present. Appropriate healthcare PPE [...] Signed By: Ruel Limon MD [facility] Comment on above: Result Comment: Elec tronically Signed By: Skip Allen PA-C\.br\Date and Time Signed: 05/29/22 11:47 EST\.br\Electronically Co-Signed By: Jona Almeida DO\.br\Date and Time Co-Signed: 06/01/22 07:33 EST INFLUENZA A AND B AGon 06-01 INFLUBNEGH SEE BELOW Normal [facility] Comment on above: Result Comment: Nega tive for Flu B protein antigen. Infection due to Flu B cannot be ruled out. Flu B antigen in the sample may be below the detection limit of the test. Performed By: #### V AGINT #### [facility] [address] [place] [address] Dr. Ventura Moe INFLUENZA A AG Positive Abnormal NEGATIVE SEE COMMENT [facility] Comment on above: Performed By: #### V AGINT #### [facility] [address] [place] [address] Dr. Ventura Moe INFLUENZA B AG Negative Normal NEGATIVE SEE COMMENT [facility] Comment on above: Performed By: #### V AGINT #### [facility] [address] [address] [address] Ventura Moe INFLUPOSH SEE BELOW Normal [facility] Comment on above: Result Comment: NOTE : Live attenuated influenzae vaccine viruses can cause a positive result for a rapid influenza diagnostic test if administered up to 7 days prior to rapid testing. Performed By: #### V AGINT #### [facility] [address] [place] [address] Dr. Ventura Moe INTERNAL CONTROLS Within Normal Limits Normal Wi thin Normal Limits [facility] Comment on above: Performed By: #### V AGINT #### [facility] [address] [place], [place] [address] Dr. Ventura Moe Consent for Treatmenton Consent for Treatment [id number]:[id number] Normal [facility] Discharge Instructionson Discharge Instructions [id number]:127 Normal [facility] ED Clinical Summaryon 2021 ED Clinical Summary [address] [address] ED Clinical Summary Person Information Name: [facility] Age: 26 Years : 1995 Sex: Female Language: Occitan PCP: Gomez Card MD Marital Status: Single [...] 05/29/2022 12:00:28 05/29/2022 12:00:28 05/29/2022 12:00:28 ADDRESS: [address] [place] [address] DR SHAYLA Mckay [facility] [phone] PHYS DOC NOTES: MEDICAL INFORMATION: Prescriptions Given: New Medications [id number], [address] [place], [place] [id number], [phone] brompheniramine/dextro methorphan/PSE (Bromfed DM oral syrup) 10 [...] Follow up: With: Address: When: Gomez Card [address] [place] [address], [place] [address] Business (1) In 3 days 06/01/2022 DIAGNOSIS: Cough; Upper respiratory infection Normal [facility] ED Patient Education Noteon 05-29-2022 ED Patient [...] to help relieve symptoms, such as: ? Bsra-gom-csnvesj cold medicines. ? Cough suppressants. Coughing is [...] other clear broths. General instructions ? Take shin-sxc-goyqree and prescription medicines only as told by [...] and water are not available, use hand senior project coordinator. ? Avoid touching your mouth, face, eyes, [...] (more content not included)... Normal [facility] ED Patient Summaryon 022 ED Patient Summary [place] [id number] Patient Discharge Instructions Person Information Name: MICHAEL SEQUEIRA Age: 26 Years Arrival Date: 05/29/2022 10:40:59 Discharge Diagnosis: Cough; Upper respiratory infection Primary Care Physician: Gomez Card MD Provider Information Primary Provider: Jona Almeida DO Advanced Ends Down Checker:Skip Allen PA-C The exam and treatment you received in the Emergency Department were for an urgent problem and are not intended as complete care. It is important that you follow up with a doctor, nurse practitioner, or physician?s certified medical technician assistant for ongoing care. If your [...] Follow-up Instructions: With: Address: When: Gomez Savageasad [address] [place] [address], [place] [address] Business (1) In 3 days [...] opioids can be used to help relieve fubdeeph-wf-fhdbvj pain and are often prescribed following a [...] be struggling with addiction, tell your health resident care associate and ask for guidance or call [facility] National Help (more content not included)... Normal [facility] XR Chest 2 Viewson 2 XR Chest [...] by: SISSY Technologist: JESUS Normal [facility] PAP ACOG PANEL 2: 21 to 29on 03-25-2022 . . [facility] Comment on above: Performed By: #### [id number] #### [facility] [address] [address] [address] Ventura Moe Age Gdln ACOG Testing - [facility] Comment on above: Performed By: #### [id number] #### [facility] [address] [address] [address] Ventura Moe DIAGNOSIS: Comment [facility] Comment on above: Result Comment: NEGA TIVE FOR INTRAEPITHELIAL LESION OR MALIGNANCY. Performed By: #### [id number] #### [facility] [address] [address] [address] Ventura Moe Methodology: Comment [facility] Comment on above: Result Comment: This liquid based ThinPrep(R) pap test was screened with the use of an image guided system. Performed By: #### [id number] #### [facility] [address] [place] [address] Dr. Ventura Moe Note: Comment Normal [facility] [...] do occur. . Performed By: #### [id number] #### [facility] [address] [place] [address] Dr. Ventura Moe Performed by: Comment Normal [facility] Comment on above: Result Comment: Joshua Callahan, Recovery Auditor (ASCP) Performed By: #### [id number] #### [facility] [address] [place] [address] Dr. Ventura Moe Reflex Criteria: Comment Normal [facility] Comment on above: Result Comment: The HPV DNA reflex criteria were not met with this specimen result therefore, no HPV testing was performed. . Performed By: #### [id number] #### [facility] [address] [place] [address] Dr. Ventura Moe Specimen adequacy: Comment Normal [facility] Comment on above: Result Comment: Sati sfactory for evaluation. Endocervical and/or squamous metaplastic cells (endocervical component) are present. Performed By: #### [id number] #### [facility] [address] [place] [address] Dr. Ventura Moe CHLAMYDIA/GONOCOCCUS VINITA (SW AB/URINE/PAPon 03-20-2022 Chlamydia trachomatis, VINITA Negative Normal Negative [facility] Comment on above: Performed By: #### C T/NGNA #### [facility] [address] [place] [address] Dr. Ventura Moe Neisseria gonorrhoeae, VINITA Negative Normal Negative [facility] Comment on above: Performed By: #### C T/NGNA #### [facility] [address] [address] [address] Ventura Moe VAGINITIS/VAGINOSIS DNA PROB [place] 03-19-2022 Batool species Negative Normal Negative [facility] Comment on above: Performed By: #### V AGINT #### [facility] [address] [address] [address] Ventura Moe Gardnerella vaginalis Positive Abnormal Negative [facility] Comment on above: Performed By: #### V AGINT #### [facility] [address] [address] [address] Ventura Moe Trichomonas vaginalis Negative Normal Negative [facility] Comment on above: Performed By: #### V AGINT #### [facility] [address] [address] [address] Ventura Moe Vital Signs Date Time Vital Sign Value Performing Clinician Faci lity 05-29-2022 10:44-0500 Body temperature 98.06 [degF] Jona Brennane [facility] 05-29-2022 10:44-0500 Diastolic blood pressure 82 mm[Hg] Jona BrennanMemfoACT [facility] 05-29-2022 10:44-0500 Heart rate 95 /min Jona BrennanMemfoACT [facility] 05-29-2022 10:44-0500 Respiratory rate 18 /min Jona Brennan[facility]foACT [facility] 05-29-2022 10:44-0500 SaO2% (BldA) [Mass fraction] 98 % Jona Juan Pablo [facility] 05-29-2022 10:44-0500 Systolic blood pressure 123 mm[Hg] Jona Glaukos [facility] Encounters Encounter Date Encounter Type Care Provider Facility Start: 12-07-2023 End: 12-07-2023 ambulatory SORIN AGUILAR Not Available Start: 11-03-2023 End: 11-03-2023 ambulatory JUAN ALBERTO MCDERMOTT Not Available Start: 09-18-2022 End: 09-18-[address] SORIN AGUILAR . Facility:[facility] Start: 09-12-2022 Encounter for preprocedural respiratory examination DR SORIN AGUILAR . [facility] Start: 09-07-2022 End: 09-08-[address] [...] 05-29-2022 Emergency department patient visit Jona Almeida Facility:[facility] Start: 05-29-2022 End: 05-29-2022 Emergency department patient visit Jona Almeida [facility] Start: 03-17-2022 End: 03-17-[address] SORIN AGUILAR . Facility: Procedures Date Procedure Procedure Detail Performing Clinician of child (finding) Hakeem Almeida Hemorrhoids (disorder) Jona Almeida Payers Date Payer Category Payer Unknown [id number] 2.16.8 [id number] 1993 Unknown [id number] 2.16.84 [id number] 1993 Unknown [id number] 2.16.84 [id number] 1993 Unknown [id number] 2.16.84 [id number] 1993 Unknown [id number] 2.16.84 [id number] 1993 Unknown [id number] 2.16.84 [id number] 1993 Unknown [id number] 2.16.84 [id number] 1993 Unknown [id number] 2.16.84 [id number] 1993 Unknown [id number] 2.16.84 [id number] 1993 Unknown [id number] 2.16.84 [id number] 1993 Unknown [id number] 2.16.84 [id number] 1959 Unknown [id number] Social History Date Type Detail Facility Start: 04-24-2020 Tobacco smoking status Light t obacco smoker (finding) [facility] Sex Assigned At Female [facility] Functional Status Date Assessment Result Facility 05-29-2022 Functional Status N/A [facility] Clinical Note 09-18-2022 Note Date & Type Note Facility 09-18-2022 Note OPERATIVE NOTE OPERATION DATE: 09/18/2022 PROCEDURE: Robotic assisted bilateral laparoscopic salpingectomy. PREOPERATIVE DIAGNOSIS: Desires permanent sterilization, multiparity. POSTOPERATIVE DIAGNOSIS: Desires permanent sterilization, multiparity. ANESTHESIA: General. SURGEON: Sorin Aguilar D.O. CREDIT PORTFOLIO MANAGER: DAMIAN Pinto URINE OUTPUT: Yellow and clear. [...] and needle counts were correct x2. [facility] Discharge instructions 05-29-2022 Note Date & [...] medicines to help relieve symptoms, such as: Lopm-lkx-zeocrpb cold medicines. Cough suppressants. Coughing is a [...] and other clear broths. General instructions Take lzym-tyl-nlttfxj and prescription medicines only as told by [...] and water are not available, use hand senior project coordinator. ?Avoid touching your mouth, face, eyes, or [...] 12/01/2001 Document Revised: 06/15/2019 Document Reviewed: 01/21/2018 [employer] Patient Education 2020 [employer]. 05/29/2022 12:00:28 Influenza, Adult Influenza, Adult Influenza, [...] Your health care provider may recommend: Taking pekg-omh-zmrmntr medicines. Drinking plenty of fluids. In many [...] juice, and low-calorie sports drinks. Eat bland, hbjw-ix-pzrkml foods in small amounts as you are able. These foods include bananas, applesauce, rice, lean meats, toast, and crackers. Avoid drinking fluids that contain a lot of sugar or caffeine, such as energy drinks, regular sports drinks, and soda. Avoid alcohol. Avoid spicy or fatty foods. General instructions Take ypfb-hfu-higajnd and prescription medicines only as told by [...] water are not available, use alcohol-based hand senior project coordinator. Keep all follow-up visits as told by [...] 2001 Document Revised: 09/07/2019 Document Reviewed: 11/23/2018 [employer] Patient Education 2020 [employer]. Follow Up Care 05/29/2022 10:41:29 With:Gomez Card Address: [address] [place] [phone] Business (1) When:06/01/2022 11:40:58 [facility] Evaluation + Plan note Note Date & Type Note Facility Evaluation + Plan note No data available for this section [facility] Progress note Note Date & Type Note Facility Progress note No data available for this section [facility] Summary Purpose Family History No Family History Records FoundNo Family History Records FoundNo Family History Records Found Advance Directives No Advanced Directives Records FoundNo Advanced Directives Records FoundNo Advanced Directives Records Found Additional Source Comments Patient Care team informatio n (unrecognized section and content) Personnel Name: Gomez Card MD Address: Address: [facility] [facility] [place] [address]- INFORMATION SOURCE (unrecogn ized section and content) DATE CREATED AUTHOR 06/01/2022 Pablo Bulmaro [facility] DATE CREATED AUTHOR AUTHOR'S ORGANIZ ATION 10/28/2022 [facility] DATE CREATED AUTHOR AUTHOR'S ORGANIZ ATION 12/09/2023 [facility] EPIC FOR RECORDS [...] BE BASED ON THE PRIMARY CLINICAL RECORDS. [facility] [employer] provides no warranty or guarantee of the accuracy or completeness of information in this document.
[2024-02-28 14:03] LABS: Internal Control Within Normal Limits; SARS-CoV-2 Ag NEGATIVE (NEGATIVE)
== END 2024-02-28 10:20 | disposition home or self-care (01) ==
LOC: LAB 10:19
PROVIDERS: PCP Nurse Practitioner Family; Visit Provider Family Medicine
DX: R05.1 Acute cough (principal)
CPT/HCPCS: 87811

== ENCOUNTER 2024-04-05 13:33 | Emergency (ER) | payer SELFPAY ==
[2024-04-05 13:47] VITALS: BP 144/76; PULSE 82; TEMP 36.6; O2SAT 96; BMI 24.9
--- OUTSIDE RECORDS SUMMARY | 2024-04-05 13:52 | XMS_ITS | CCD ---
Author Organization [facility] Care Team Providers Care Carbon Plant Grinder Name Role Phone Gomez Card Primary Care [...] Drug allergy Weal (disorder) [facility] (1 source) Sulfonamides (Antibiotic) Drug allergy (disorder) 6 [facility] Repository Medications Current Medications Medication Drug Class(es) Dates Sig (Normalized) Sig (Original) brompheniramine maleate 0.4 mg/ml / dextromethorphan hydrobromide 2 mg/ml / pseudoephedrine hydrochloride 6 mg/ml oral solution (1 source) alpha-Adrenergic Agonist, Uncompetitive M-txglyb-G-aspartat e Receptor Antagonist, Sigma-1 Agonist Start: 05-29-2022 End: 06-05-2022 take 10 mL by mouth four times daily for cough and congestion Bromfed DM oral syrup 10 mL, Oral, QID for cough and congestion for 7 day(s), 280 mL, Refill(s) 0, [facility]/pharmacy #[id number], 163, cm, 05/29/22 10:46:00 EST, Height/Length Dosing, 71, kg, 05/29/22 10:46:00 EST, Weight Dosing Start Date: 05/29/22 Stop Date: 06/05/22 Status: Ordered oxybutynin chloride 5 mg oral tablet (1 source) Cholinergic Muscarinic Antagonist Start: 04-24-2020 oxybutynin 5 mg Tab See Instructions, PRN for urinary discomfort, 2 tab(s) Oral at night for bladder urgency, # 60 tab(s), Refills(s) 6, Pharmacy: [facility]/pharmacy #[id number], 162, cm, 04/24/20 10:24:00 EST, [...] 09-18-2022 BASO # 0.0 103/ul Normal 0.0-0.1 [facility] Comment on above: Performed By: #### C BC #### [facility] [address] [place] [address] Dr. Ventura Moe Basophils/100 WBC (Bld) 0.8 % Normal 0.2-2.0 [facility] Comment on above: Performed By: #### C BC #### [facility] [address] [place] [address] Dr. Ventura Moe EO # 0.1 103/ul Normal 0.0-0.7 [facility] Comment on above: Performed By: #### C BC #### [facility] [address] [place] [address] Dr. Ventura Moe Eosinophils/100 WBC (Bld) 1.2 % Normal 0.9-7.0 [facility] Comment on above: Performed By: #### C BC #### [facility] [address] [place] [address] Dr. Ventura Moe Erythrocyte distribution width (RBC) [Ratio] 14.0 % Normal 11.0-15.0 [facility] Comment on above: Performed By: #### C BC #### [facility] [address] [place] [address] Dr. Ventura Moe Hematocrit (Bld) [Volume fraction] 36.9 % Normal 36.0-48.0 [facility] Comment on above: Performed By: #### C BC #### [facility] [address] [place] [address] Dr. Ventura Moe Hemoglobin (Bld) [Mass/Vol] 12.4 g/dL Normal 12.0-16.0 [facility] Comment on above: Performed By: #### C BC #### [facility] [address] [place] [address] Dr. Ventura Moe IG # 0.01 10e3/ul Normal 0.00-0.03 [facility] Comment on above: Performed By: #### C BC #### [facility] [address] [place] [address] Dr. Ventura Moe IG % 0.2 % Normal 0.0-0.5 [facility] Comment on above: Performed By: #### C BC #### [facility] [address] [address] [address] Ventura Moe LYMPH # 2.0 103/ul Normal 1.2-3.8 [facility] Comment on above: Performed By: #### C BC #### [facility] [address] [place] [address] Dr. Ventura Moe Lymphocytes/100 WBC (Bld) 40.6 % Normal 20.5-60.0 [facility] Comment on above: Performed By: #### C BC #### [facility] [address] [place] [address] Dr. Ventura Moe MANUAL DIFF REQ NO Normal [facility] Comment on above: Performed By: #### C BC #### [facility] [address] [place] [address] Dr. Ventura Moe MCH (RBC) [Entitic mass] 29.2 pg Normal 26.7-34.0 [facility] Comment on above: Performed By: #### C BC #### [facility] [address] [place] [address] Dr. Ventura Moe MCHC (RBC) [Mass/Vol] 33.6 g/dL Normal 29.9-35.2 [facility] Comment on above: Performed By: #### C BC #### [facility] [address] [place] [address] Dr. Ventura Moe MCV (RBC) [Entitic vol] 87.0 fL Normal 81.0-99.0 [facility] Comment on above: Performed By: #### C BC #### [facility] [address] [place] [address] Dr. Ventura Moe MONO # 0.6 103/ul Normal 0.3-0.8 [facility] Comment on above: Performed By: #### C BC #### [facility] [address] [place] [address] Dr. Ventura Moe Monocytes/100 WBC (Bld) 12.4 % Critically high 1.7-12.0 [facility] Comment on above: Performed By: #### C BC #### [facility] [address] [place] [address] Dr. Ventura Moe NEUT # 2.2 103/ul Normal 1.4-6.5 [facility] Comment on above: Performed By: #### C BC #### [facility] [address] [place] [address] Dr. Ventura Moe Neutrophils/100 WBC (Bld) 44.8 % Normal 43.0-75.0 [facility] Comment on above: Performed By: #### C BC #### [facility] [address] [place] [address] Dr. Ventura Moe Platelet mean volume (Bld) [Entitic vol] 9.4 fL Critically low 9.5-13.5 [facility] Comment on above: Performed By: #### C BC #### [facility] [address] [place] [address] Dr. Ventura Moe PLT 266 103/ul Normal 150-450 [facility] Comment on above: Performed By: #### C BC #### [facility] [address] [place] [address] Dr. Ventura Moe RBC 4.24 106/ul Normal 4.20-5.40 [facility] Comment on above: Performed By: #### C BC #### [facility] [address] [place] [address] Dr. Ventura Moe WBC 4.9 103/ul Normal 4.0-11.0 [facility] Comment on above: Performed By: #### C BC #### [facility] [address] [place] [address] Dr. Ventura Moe PREG QUANT HCGon 09-18-2022 HCG QUANT <1 Normal [facility] Comment on above: Performed By: #### P REGQNT #### [facility] [address] [place] [address] Dr. Ventura Moe HCG RANGE SEE BELOW Normal [facility] Comment on above: Result Comment: 5-50 0.2-1 WEEK 50-500 1-2 WEEKS 100-5,000 2-3 WEEKS 500-10,000 3-4 WEEKS 1,000-50,000 4-5 WEEKS 10,000-100,000 5-6 WEEKS 15,000-200,000 6-8 WEEKS 10,000-100,000 2-3 MONTHS Performed By: #### P REGQNT #### [facility] [address] [place] [address] Dr. Ventura Moe XR CHEST 2 Von [...] [place] Date: 2022-09-07 09:08 Normal [facility] CHLAMYDIA/GONOCOCCUS VINITA (SW AB/URINE/PAPon 08-03-2022 Chlamydia trachomatis, VINITA Negative Normal Negative [facility] Comment on above: Performed By: #### C T/NGNA #### [facility] [address] [place] [address] Dr. Ventura Moe Neisseria gonorrhoeae, VINITA Negative Normal Negative [facility] Comment on above: Performed By: #### C T/NGNA #### [facility] [address] [place] [address] Dr. Ventura Moe VAGINITIS/VAGINOSIS DNA PROB Charles 08-01-2022 Batool species Negative Normal Negative The [facility] Comment on above: Performed By: #### V AGINT #### [facility] [address] [place] [address] Dr. Ventura Moe Gardnerella vaginalis Negative Normal Negative [facility] Comment on above: Performed By: #### V AGINT #### [facility] [address] [place] [address] Dr. Ventura Moe Trichomonas vaginalis Negative Normal Negative [facility] Comment on above: Performed By: #### V AGINT #### [facility] [address] [place] [address] Dr. Ventura Moe HERPES SIMPLEX VIRUS (HSV) C ULTUREon 07-25-2022 HSV Culture/Type Comment Abnormal [facility] Comment on above: Result Comment: Posi tive for Herpes simplex virus type-2. Typing was confirmed by monoclonal antibody microscopic immunofluorescence. Performed By: #### H SVCUL #### [facility] [address] [place] [address] Dr. Ventura Moe US PELVIS TRANSVAGon 023 [...] GISELA TIDWELL Date: 2022-07-09 15:34 Normal [facility] CHLAMYDIA/GONOCOCCUS VINITA (SW AB/URINE/PAPon 07-06-2022 Chlamydia trachomatis, VINITA Negative Normal Negative [facility] Comment on above: Performed By: #### V AGINT #### [facility] [address] [place] [address] Dr. Ventura Moe Neisseria gonorrhoeae, VINITA Negative Normal Negative [facility] Comment on above: Performed By: #### V AGINT #### [facility] [address] [place] [address] Dr. Ventura Moe VAGINITIS/VAGINOSIS DNA PROB Charles 07-04-2022 Batool species Negative Normal Negative The [facility] Comment on above: Performed By: #### V AGINT #### [facility] [address] [place] [address] Dr. Ventura Moe Gardnerella vaginalis Positive Abnormal Negative [facility] Comment on above: Performed By: #### V AGINT #### [facility] [address] [place] [address] Dr. Ventura Moe Trichomonas vaginalis Negative Normal Negative [facility] Comment on above: Performed By: #### V AGINT #### [facility] [address] [place] [address] Dr. Ventura Moe Coding Summary.on 06-01-2022 Coding Summary. CD:[id number] Gh 0bWw+PGhlYWQ+HB8DYPNeI 25daTTawU4HQ9tXGI5KHBW XBNIDAI1PRT8deQS5MDnaK 2VybiAv HkdoaVSjRV28WZq8GXA6gE mvCJantK2qaSQjN8j1VwZe ZH16sC08FZynBMSzQuV4Kz ZpbjsgbWFy O3rsIsWogBQnXxi+PHRhYm xlIHdpZHRoPScxMDAlJyBz hHysZQ8jLg9bISGmHYWyeQ xhcHNlOiBj z8pwTYHwOOesKW2vkCwwO8 CjnDT6GGWoa9r8Ga28uSO+ SMKpOPC8nTgjWDiau151Ot Cke1yvBWI5 wAItCCfhXXG1Z83uf2D9RC AhEOVgPRY6rBM8lE0sjXvt rlmdS7RjwKRvUuA3RCM9nP XpfL6zgNef rejuvU7kIdd+Q80BSE6ILT NWZS3ZWpq9G6GlSjeefJW+ AO47QMIdXX51kLYooYTqe2 qtlXi0NrQu PBJxVUU3jLhfSCfvr6HySQ AdK84pfJBxe7Q5NJNahOrv kPHjGiIzeYP9wM6xAFipfv wjn0dkgpat Pyjet2wqff29jL92R31uLS vuDDYbETK4SXWsGJNinHnt nd1spB6tGe9+IBtug5dbm2 livYg5RkKm PSRzeoLkcXogPON6n1QgPc 96Y7KfqUbgh5OqSjp0iy48 fFTbz7Q5uNS6HTjfAGQsfZ 2cXUftGcM0 LXNoUzUeiL18sTOwPZtaVd 2zuJgjrUjmCG6mGOMehijg PZXwsI6kWTIhjPLroLixLZ 4wNTBpbjtm h632BkCiZEB5XKAijIAwL9 RhcI8nWiZvYOHhXXXkD4Ts jRGcKWqeH671YTamKoB6FW QfcrMpR2Mx SAUonXpvZjP6m7T5Nl3Kl7 StqdrhYWL4OPbhAOLlHxPv QjDmQlW1P3NrGvl7SEGlnT bpXD8xV2Fc LLYxyaurawxppKP1JKVuGQ MmbO62pSOlZYgqLx5yk5S0 l768OVPyOQOspA72Vp4znT ogMTBwdCBU wG4coopdi1eibbfgBiDtPE QvBYu8RHl2QMGurVtnOfZj SFN7VhW6ZTW8dXPifF7wtQ fpkxlarQ0y Oyc+D52mmS1fJEZ3ISM2vv gtIPEhezNtXM72PM23R7Du PjwvdGFibGU+PGRpdiBzdH ggVW2aDlCo z0bph0HbRTwgV6XrWVSqCT xqIen7SNKiXYB8tML6eJ1h QXEmCBfho2S0vJR4C2Vgin Vobr9fe1lh NZKuGArkP55gwXMtm5S9HW KtbVS4KGLgmWvxQmMbqY48 Oyc+FOBbkKjfb5XoWipkh5 jye5axfZx2 YiJxDLFdtyWuqWsuEWU4k1 HpWi68A87nSQxbGWHbUCHu ZGTqLZDyaJeepb5fdC5xDn 8+PGNvbCB3 lKK8aR8xFRYmRoG2UNedZ2 75SjTvcUKoEemxo5xqw1ps dAq8YkIdWPWqdeRbrZxtMH K0v7RwPz89 Z02wLIzgZLGdRRNkKWRzJK NlmPwsgu9ldE2cDo2+PC9j f6tunq74kQ47lTQ+PHRkIH T1oZppMLiz RCErtZ9jVPoeUmY5WNIqVb YaoB04vVWcYWxfLm1wvWde jDvgYQ3tZBNsnbggz506Xp Nei9fkUGAi iSMwMLcqBKG7W32dl4M0TH BvWPOoETA6tQR9gN9leBjq bjogbGVmdDsgdmVydGljYW gcGMkoL450 IHRvcDsnPlBhdGllbnQgTm JqUQx7V5CbVia7BFPtuMqy DE6orGSiVUdaRm3wtRhewP vyWM1qODQr cefld298IcGgc6yvLVRxsW IuDAmhCVZ5R74eg3K9UPZr PJRoUTY4zZJ1gP4jgUvwgc ogbGVmdDsg wyCeaCcwWVefMCihQ444BI RvcDsnPkJpcnRoIERhdGU6 VQ85WM16xETwo8Q0mXN5Q3 BhZGRpbmct sbcfxSB3OBIrMLPyiX44El 1obRofKq0yAMEsWSA4WRCi lAAzG9JqwS7cTbDdUUTqEM ZkJ1BddFQr QAllD957YGhrBdH0EAJozc WkQ6FzYGCkeTemItM6v8O9 En9MM1H0LX59QO72zYDbu3 V6wOM3F8Nq PGWzqzravrlpfLQ5XCPeVM DsjC51Us8guIafOc1gUKDw IUR5DKLihHZdC0NdgA0mEg AjMDAwMDAw E2ZjkTCoYAstQ082SCgiEp F5FYWtlpWoL4TwKXDoyLck YeT5b4S4Fz3KDEg4NK23PN 03lVOfo1J3 iSO2U5NwRLZwsoptybcerI V8EBEeGNLvgG83We5lfAgb By6wYRJlFOU4SKIxyGOzX5 HbpV4mRnOl KIBbPXIkK8XbqUWsKYnfP1 00XCwjJlR0SLBfxwEjD2Zg RPGgxOaxMvB9h5Z9Fg2HZH VfOZ89DZA4 kWP7ZA33NC23F3XmHqmwaU FibGU+PHRhYmxlIHdpZHRo LPgbTVDhFgPsqWjoUV8eRj 9yZGVyLWNv mRcleXMeImVsi6clKJPaZV puUC5fkWcnN3CfbFT3YYBv f6j7Qo39E45nG4YjvYF+PG PvwMZ2mLU2 jO3hPkEqCkG9FTvpW121Ql TbyGMfFlmbb5jrs4utxAz2 UsL0AHKddcEknZvgPGT6t7 VaYl60U42u IHdpZHRoPSIxNSUiIHZhbG douc3nsB7yKo4+PGNvbCB3 zCP1oK5fGqGwJsU1WUezE1 49InRvcCIv Ujpxf5fft3lqyHj3EzQxEI CamdApsFkeECS8k9UhXd17 N7ZwlSalj2GlOjl1md90jU Vkr8B0kBJ5 P9WoTUGymucmnKXthQxkQC 9wWDBsgewpYUOrnV3zTBGv G2j1HoFlNoX5UCflJ2Bdae P3MQBkrXUw LYjfQCZ1V54jw3J8QVKxFX ZiHTV0sPK6gW5fmLufjckn bGVmdDsgdmVydGljYWwtYW udU584DYNq dQdlTNTqjB5hJJYalWDpcA uhSA9uZGZyspgqMqGUTZBD MFBIAQSRWqr2F5VnQru4KE GbbJseAL0h qZOhZVwoNx5vcJqquFjkEK 7kFAJknxheFGOzhP7lMSYk rIAnbAlkIO9dWHXqcqqsc0 37KpTvDGI9 FSLgzOWdH2KwgQ1eGgEvRO PyKRLqZ1DkqJPyOYhrR930 DBhcLxU3GEWmcvFiJ7IdXB FsaWduOiB0 t9D2Nb4uZh8lXK1vVKlrCL 59KY74wDNoe1S8wXM9T2Ka RBQcvwdsuzaigWK9LZWaVO PuxR81tANc FIhpMg6ym0Q2y371ZKXwFY WfrM48Mi1dfNapHTCplOVQ kI2swyogi4qluxwrJhRoRX QnSUs2YMe5 KKOcqWwiQuMpALP2RzX3TE V4mGXusS6dmEouqzvwkX4f Oyc+JsnaRIPjtuX7D6CuAd f8WAVgmGgt PT4cnJSuZXzmUt7tiNpjbI jhWS3aWWDzszwaUQOhxS1o WJTshSArqSqrZT5sYRCgjr kzv807GhVd HKR6LKEtiFVwD9GoyA7fSl HqFDVwPQEoQ7QxlJLyKJby U061GYfdJrK9ZKOldfSkZ6 FsLWFsaWdu GlF5y8U6Nt3ALO5ztRF7B8 XpYnm1WXHtqPieHY9onFXl INcwQk9suZifiDkjHY0wDP BpbjtwYWRk wA1hJZFurAXtrHegAK8yZU Lvmwnia439ThUiPOD6VGDv qIVhZ3XavZ0dNoOvGQFnGX PxO4UsfFOp YIudF126UGrhLuM8DTCoom JaU4XpAVYdfTofAqL4l2E2 Yg6JrSHcR4YhF9w5U6GlRa wvdHI+PC90 YPOiWX91eGYzbJWpd5hjnZ o0TxQjVURjLRR2mCyeTHfh q3KxUASdM41xdJEhs8H7WJ NvbGxhcHNl GiMziWK7bL9oPUkwuefma1 upgdpmGqotv5udlt28cX95 F58zMCslJEQqWXWtCMOwZV LmvLuahn6e iL1uCu2+EMTvcEL8zVA4dD 4zWeHwWfD5RClqZ751NlWl eKDfMnhui8ijg9loyLl4Ii IwJSIgdmFs gEudIUH3d9PsCl04D71xCC dpZHRoPSIyMCUiIHZhbGln mt6svE4ySn0+PF7hd1emhf 63zE14jWC+ PUToUXC7xLhrINqpDXCtnW 7nFGgyYyY8OSAaCtPqkF21 zLWfNFekKu5jaMwoqWnqOP 4wNTBpbjtm s127TgPjt0bfHXCwsEVrTO uzRMK6W88od9O5LQCmFAAm JQQ4cCG6cZ2qbWojjxeysG VmdDsgdmVy uJeoXHvxJIseU149UDRxaN xuEqTtsQAfL8xcywISFY5j OjwvdGQ+OUEjSCJ4eOzaWJ uwDUJpbI1n VELwU2x6EhUyZtO7XFtkV5 BjxpE1MDDbcPBbIWKrnOMX gG0ehckxw2vrgrfbKxHtJY FuWNi1LCe2 QFLxmJzqTaZuPFN9DqH0EB E4qYItjQ7dwEfwumsuoP5j Oyc+RklOOjwvdGQ+PHRkIH S9uMwbBBtp WAUajI3oJQGvA5k9MsNgNm U7HFnkD0GmxsT7JIXkdQNg RUKapKQLjX9vxnnem4mman ogIzAwMDAw YMy9TTt6EUIxhFksMgTiPI G3EkU7NDX3tAMcnU7jeWke syawuK8uJyx+TVJOOjwvdG Q+PHRkIHN0 yYueLPvaRBRceA6cHGHzE5 h1ZiSwHfM0ZWclN2RxgoL2 QFAqtAVpJTYkpUJLiW2kpk rsp9qrxguw NjQfDYHuMDa4JVc5BBLtsV lnYwRmMKH6YfS4EQA6gKTd tS8unOqxusuaxX8vAnv+UG A0RZH9EQ29 IE31M4UcAlreyQAapZY+PH RhYmxlIHdpZHRoPScxMDAl HrEvzQmbJR8cTh3uMLVtOO NvbGxhcHNl OiBj (more content not included)... Normal [facility] Covid-19 PCR ([facility])on 05-21 SARS-CoV-2 (COVID-19) RNA VINITA+probe Ql (Unsp spec) Not detected Normal NOT DETECTED [facility] Comment on above: Result Comment: This test is not yet approved or cleared by the [place] FDA. When there are no FDA-approved or cleared tests available, and other criteria are met, FDA can make tests available under an emergency access mechanism called an Emergency Use Authorization (EUA). The EUA for this test is supported by the [place] of Health and Human Service's (HHS's) declaration [...] consistent with SARS-CoV-2. Performed By: #### C [facility] #### [facility] [address] [place] [address] Dr. Ventura Moe ED Note-Physicianon 06-01-20 ED Note-Physician Basic Information Time Seen: Alejandro MCGINNIS Skip 05/29/2022 10:42 Chief Complaint Mom reports congestion and coughing up phlegm since last night. Denies fever. History of Present Illness 26-year-old female comes to the ED for evaluation of cough and congestion. She presents with her children have similar symptoms. She states they were seen at [place] [facility] recently where one of them has [...] for 7 day(s), 280 mL, Refill(s) 0, [facility]/pharmacy #[id number], 163, cm, 05/29/22 10:46:00 EST, [...] Card In 3 days 06/01/2022 EST [address] [place] [address]- Business (1) Additional Instructions: Patient Education Upper Respiratory Infection, Adult Influenza, Adult Attestation Patient seen and evaluated by the physician assistant health educator. Attending physician was present in the emergency department and supervised care. This visit was performed by both the physician and an APC. I performed all aspects of the MDM as documented. This report was transcribed using voice recognition software. Every effort was made to ensure accuracy, however, inadvertently computerized cnc manufacturing engineer mistakes may be present. Appropriate healthcare [...] Bones unremarkable. Signed By: Ruel Limon MD [facility] Comment on above: Result Comment: Elec tronically Signed By: Skip Allen PA-C\.br\Date and Time Signed: 05/29/22 11:47 EST\.br\Electronically Co-Signed By: Jona Almeida DO\.br\Date and Time Co-Signed: 06/01/22 07:33 EST INFLUENZA A AND B AGon 06-01 INFLUBNEGH SEE BELOW Normal [facility] Comment on above: Result Comment: Nega tive for Flu B protein antigen. Infection due to Flu B cannot be ruled out. Flu B antigen in the sample may be below the detection limit of the test. Performed By: #### V AGINT #### [facility] [address] [place] [address] Dr. Ventura Moe INFLUENZA A AG Positive Abnormal NEGATIVE SEE COMMENT [facility] Comment on above: Performed By: #### V AGINT #### [facility] [address] [place] [address] Dr. Ventura Moe INFLUENZA B AG Negative Normal NEGATIVE SEE COMMENT [facility] Comment on above: Performed By: #### V AGINT #### [facility] [address] [address] [address] Ventura Moe INFLUPOSH SEE BELOW Normal [facility] Comment on above: Result Comment: NOTE : Live attenuated influenzae vaccine viruses can cause a positive result for a rapid influenza diagnostic test if administered up to 7 days prior to rapid testing. Performed By: #### V AGINT #### [facility] [address] [place] [address] Dr. Ventura Moe INTERNAL CONTROLS Within Normal Limits Normal Wi thin Normal Limits [facility] Comment on above: Performed By: #### V AGINT #### [facility] [address] [place], [place] [id number] Dr. Ventura Moe Consent for Treatmenton Consent for Treatment [id number] 0CD:127 Normal [facility] Discharge Instructionson Discharge Instructions [id number] 0CD:127 Normal [facility] ED Clinical Summaryon 2021 ED Clinical Summary [address] [address] ED Clinical Summary Person Information [facility]: [facility] Age: 26 Years : 1995 Sex: [...] 05/29/2022 12:00:28 05/29/2022 12:00:28 05/29/2022 12:00:28 ADDRESS: [address] [place] [address] DR SHAYLA Mckay [facility] [phone] PHYS DOC NOTES: MEDICAL INFORMATION: Prescriptions Given: New Medications [id number], [address], [place] [id number], [phone] brompheniramine/dextro methorphan/PSE (Bromfed DM oral syrup) 10 [...] Follow up: With: Address: When: Gomez Card [address] [place] [address], [place] [address] Business (1) In 3 days 06/01/2022 DIAGNOSIS: Cough; Upper respiratory infection Normal [facility] ED Patient Education Noteon 05-29-2022 ED Patient [...] to help relieve symptoms, such as: ? Efrr-qcc-ogzcdrf cold medicines. ? Cough suppressants. Coughing is [...] other clear broths. General instructions ? Take xnds-scy-xogrhyt and prescription medicines only as told by [...] and water are not available, use hand campaign fundraiser. ? Avoid touching your mouth, face, eyes, [...] common infecti (more content not included)... Normal [facility] ED Patient Summaryon 022 ED Patient Summary [place] [id number] Patient Discharge Instructions Person Information Name: MICHAEL SEQUEIRA Age: 26 Years Arrival Date: 05/29/2022 10:40:59 Discharge Diagnosis: Cough; Upper respiratory infection Primary Care Physician: Gomez Card MD Provider Information Primary Provider: Jona Almeida DO Advanced Supervisor [employer]:Skip Allen PA-C The exam and treatment you received in the Emergency Department were for an urgent problem and are not intended as complete care. It is important that you follow up with a doctor, nurse practitioner, or physician?s assistant health educator for ongoing care. If your symptoms become worse or you do not improve as expected and you are unable to reach your usual health care provider, you should return to the Emergency Department. We are available 24 hours a day. MICHAEL SEQUEIRA has been given the following list of patient education materials, prescriptions and follow-up instructions: Follow-up Instructions: With: Address: When: Gomez Savageasad [address] [place] [address], [place] [address] Business (1) In 3 days [...] opioids can be used to help relieve dnvkeair-bl-tmrrve pain and are often prescribed following a [...] be struggling with addiction, tell your health health care marketing manager and ask for guidance or call [facility] National Help (more content not included)... [facility] XR Chest 2 Viewson 2 XR Chest [...] (Electronic Signature): 05/29/2022 11:35 am Signed by: uRel Limon MD Transcribed by: SISSY Technologist: JESUS [facility] PAP ACOG PANEL 2: 19 to 29on 03-25-[address] [facility] Comment on above: Performed By: #### [id number] #### [facility] [address] [address] [address] [place] Moe Age Gdln ACOG Testing - [facility] Comment on above: Performed By: #### [id number] #### [facility] Laboratory [address] [address] [address] Ventura Moe DIAGNOSIS: Comment [facility] Comment on above: Result Comment: NEGA TIVE FOR INTRAEPITHELIAL LESION OR MALIGNANCY. Performed By: #### [id number] #### [facility] Laboratory [address] [address] [address] Ventura Moe Methodology: Comment [facility] Comment on above: Result Comment: This liquid based ThinPrep(R) pap test was screened with the use of an image guided system. Performed By: #### [id number] #### [facility] Laboratory [address] [place] [address] Dr. Ventura Moe Note: Comment Normal [facility] Comment on above: Result Comment: The Pap smear is a screening test designed to aid in the detection of premalignant and malignant conditions of the uterine cervix. It is not a diagnostic procedure and should not be used as the sole means of detecting cervical cancer. Both false-positive and false-negative reports do occur. . Performed By: #### [id number] #### [facility] Laboratory [address] [place] [address] Dr. Ventura Moe Performed by: Comment Normal [facility] Comment on above: Result Comment: Joshua Callahan, Stocklayer (ASCP) Performed By: #### [id number] #### [facility] Laboratory [address] [place] [address] Dr. Ventura Moe Reflex Criteria: Comment Normal [facility] Comment on above: Result Comment: The HPV DNA reflex criteria were not met with this specimen result therefore, no HPV testing was performed. . Performed By: #### [id number] #### [facility] Laboratory [address] [place] [address] Dr. Ventura Moe Specimen adequacy: Comment Normal [facility] Comment on above: Result Comment: Sati sfactory for evaluation. Endocervical and/or squamous metaplastic cells (endocervical component) are present. Performed By: #### [id number] #### [facility] [address] [place] [address] Dr. Ventura Moe CHLAMYDIA/GONOCOCCUS VINITA (SW AB/URINE/PAPon 03-20-2022 Chlamydia trachomatis, VINITA Negative Normal Negative [facility] Comment on above: Performed By: #### C T/NGNA #### [facility] Laboratory [address] [place] [address] Dr. Ventura Moe Neisseria gonorrhoeae, VINITA Negative Normal Negative [facility] Comment on above: Performed By: #### C T/NGNA #### [facility] Laboratory [address] [address] [address] Ventura Moe VAGINITIS/VAGINOSIS DNA PROB Charles 03-19-2022 Batool species Negative Normal Negative The [facility] Comment on above: Performed By: #### V AGINT #### [facility] Laboratory [address] [address] [address] Ventura Moe Gardnerella vaginalis Positive Abnormal Negative [facility] Comment on above: Performed By: #### V AGINT #### [facility] Laboratory [address] [address] [address] Ventura Moe Trichomonas vaginalis Negative Normal Negative [facility] Comment on above: Performed By: #### V AGINT #### [facility] Laboratory [address] [address] [address] Ventura Moe Vital Signs Date Time Vital Sign Value Performing Clinician Faci lity 05-29-2022 10:44-0500 Body temperature 98.06 [degF] Jona Brennane [facility] 05-29-2022 10:44-0500 Diastolic blood pressure 82 mm[Hg] Jona [employer] [facility] 05-29-2022 10:44-0500 Heart rate 95 /min Jona [employer] [facility] 05-29-2022 10:44-0500 Respiratory rate 18 /min Jona [employer] [facility] 05-29-2022 10:44-0500 SaO2% (BldA) [Mass fraction] 98 % Jona Juan Pablo [facility] 05-29-2022 10:44-0500 Systolic blood pressure 123 mm[Hg] Jona [employer] [facility] Encounters Encounter Date Encounter Type Care Provider Facility Start: 12-07-2023 End: 12-07-2023 ambulatory SORIN AGUILAR Not Available Start: 11-03-2023 End: 11-03-2023 ambulatory JUAN ALBERTO MCDERMOTT Not Available Start: 09-18-2022 End: 09-18-[address] SORIN AGUILAR . Facility:[facility] Start: 09-12-2022 Encounter for preprocedural respiratory examination DR SORIN AGUILAR . [facility] Start: 09-07-2022 End: 09-08-2022 ambulatory [...] 05-29-2022 Emergency department patient visit Jona Almeida Facility[facility] Start: 05-29-2022 End: 05-29-2022 Emergency department patient visit Jona Almeida [facility] Start: 03-17-2022 End: 03-17-[address] SORIN AGUILAR . Facility: Procedures Date Procedure Procedure Detail Performing Clinician of child (finding) Hakeem Almeida Hemorrhoids (disorder) Jona Almeida Payers Date Payer Category Payer Unknown [id number] 2.16.8 [id number] 1993 Unknown [id number] 2.16.84 [id number] 1993 Unknown [id number] 2.16.84 [id number] 1993 Unknown [id number] 2.16.84 [id number] 1993 Unknown [id number] 2.16.84 [id number] 1993 Unknown [id number] 2.16.84 [id number] 1993 Unknown [id number] 2.16.84 [id number] 1993 Unknown [id number] 2.16.84 [id number] 1993 Unknown [id number] 2.16.84 [id number] 1993 Unknown [id number] 2.16.84 [id number] 1993 Unknown [id number] 2.16.84 [id number] 1959 Unknown [id number] Social History Date Type Detail Facility Start: 04-24-2020 Tobacco smoking status Light t obacco smoker (finding) [facility] Sex Assigned At Female [facility] Functional Status Date Assessment Result Facility 05-29-2022 Functional Status N/A [facility] Clinical Note 09-18-2022 Note Date & Type Note Facility 09-18-2022 Note OPERATIVE NOTE OPERATION DATE: 09/18/2022 PROCEDURE: Robotic assisted bilateral laparoscopic salpingectomy. PREOPERATIVE DIAGNOSIS: Desires permanent sterilization, multiparity. POSTOPERATIVE DIAGNOSIS: Desires permanent sterilization, multiparity. ANESTHESIA: General. SURGEON: Sorin Aguilar D.O. DANCE HISTORIAN: DAMIAN Pinto URINE OUTPUT: Yellow and clear. [...] and needle counts were correct x2. [facility] Discharge instructions 05-29-2022 Note Date & Type [...] medicines to help relieve symptoms, such as: Zofk-vlh-okphwha cold medicines. Cough suppressants. Coughing is a [...] and other clear broths. General instructions Take down-zms-smmzkix and prescription medicines only as told by [...] and water are not available, use hand campaign fundraiser. ?Avoid touching your mouth, face, eyes, or [...] 12/01/2001 Document Revised: 06/15/2019 Document Reviewed: 01/21/2018 [employer] Patient Education 2020 [employer] ([employer] 05/29/2022 12:00:28 Influenza, Adult Influenza, Adult Influenza, [...] Your health care provider may recommend: Taking xyck-qtw-vegiphl medicines. Drinking plenty of fluids. In many [...] juice, and low-calorie sports drinks. Eat bland, ttwg-bp-fxytwi foods in small amounts as you are able. These foods include bananas, applesauce, rice, lean meats, toast, and crackers. Avoid drinking fluids that contain a lot of sugar or caffeine, such as energy drinks, regular sports drinks, and soda. Avoid alcohol. Avoid spicy or fatty foods. General instructions Take qysr-ncn-xuglqjf and prescription medicines only as told by [...] water are not available, use alcohol-based hand campaign fundraiser. Keep all follow-up visits as told by [...] 2001 Document Revised: 09/07/2019 Document Reviewed: 11/23/2018 [employer] Patient Education 2020 [employer] ([employer] Follow Up Care 05/29/2022 10:41:29 With:Gomez Card Address: [address] [place] [phone] (1) When:06/01/2022 11:40:58 [facility] Evaluation + Plan note Note Date & Type Note Facility Evaluation + Plan note No data available for this section [facility] Progress note Note Date & Type Note Facility Progress note No data available for this section [facility] Summary Purpose Family History No Family History Records FoundNo Family History Records FoundNo Family History Records Found Advance Directives No Advanced Directives Records FoundNo Advanced Directives Records FoundNo Advanced Directives Records Found Additional Source Comments Patient Care team informatio n (unrecognized section and content) Personnel Name: Gomez Card MD Address: Address: [facility] [facility] [place] [address]- INFORMATION SOURCE (unrecogn ized section and content) DATE CREATED AUTHOR 06/01/2022 Pablo Bulmaro [facility] DATE CREATED AUTHOR AUTHOR'S ORGANIZ ATION 10/28/2022 [facility] DATE CREATED AUTHOR AUTHOR'S ORGANIZ ATION 12/09/2023 [facility] EPIC FOR RECORDS PERTAINING [...] BE BASED ON THE PRIMARY CLINICAL RECORDS. [facility] [employer] provides no warranty or guarantee of the accuracy or completeness of information in this document.
--- NOTE | 2024-04-05 13:53 | ED.GENADUL1 ---
HPI HPI - General Adult General Chief complaint: Upper Respiratory Infection Stated complaint: FEVER, UNWELL Time Seen by Provider: 04/05/24 13:41 History of Present Illness HPI narrative: Patient presents to ED complaining of not feeling well. She states she started to not feel well on Wednesday. She has had some nausea vomiting and some stomach pain as well as some cold symptoms. She is here with her daughter who is also sick. Her daughter is at a daycare and the sitter there was sick as well. Patient is well-appearing, appears well-hydrated. Resting comfortably in the bed holding her daughter. No acute abdominal pain. No sore throat or ear pain. She did states she had to miss work due to this illness. No other complaints at this time Related Data Home Medications ?Medication ?Instructions ?Recorded ?Confirmed No Known Home Medications 04/05/24 04/05/24 Allergies Allergy/AdvReac Type Severity Reaction Status Date / Time Sulfa (Sulfonamide Allergy Hives Verified 04/05/24 13:47 Antibiotics) Opioid HPI Opioid Management Most Recent Opioid Data: No Data to Display Review of Systems ROS Status of ROS 10 or more systems reviewed and unremarkable except as noted in history and below PFSH PFSH Social History Little interest or pleasure in doing things: not at all Feeling down, depressed, or hopeless: not at all Exam Narrative Exam Narrative: Time Seen: [] Vital Signs: [Per nurse's notes.] General: [Alert] Skin: [Warm, dry, no rash.] Head: [Normocephalic, atraumatic.] Neck: [Supple, trachea midline.] Eye: [Pupils are equal, round and reactive to light, extraocular movements are intact, normal conjunctiva.] Ears, nose, mouth and throat: oral mucosa moist. Cardiovascular: [Regular rate and rhythm, no murmur.] Respiratory: [Lungs are clear to auscultation, respirations are non-labored, breath sounds are equal.] Chest wall: [No tenderness, no deformity.] Gastrointestinal: [Soft, nontender, non distended, normal bowel sounds.] MSK: 5 out of 5 muscle strength x 4 extremities no calf pain or edema Lymphatics: [No lymphadenopathy.] Psychiatric: [Cooperative, appropriate mood & affect.] Neurological: [Alert and oriented to person, place, time, and situation, no focal neurological deficit observed.] Constitutional Vital Signs, click to edit/add: Last Vital Signs Temp 97.8 F 04/05/24 13:47 Pulse 82 04/05/24 13:47 Resp 14 04/05/24 13:47 BP 144/76 H 04/05/24 13:47 Pulse Ox 96 04/05/24 13:47 O2 Del Method Room Air 04/05/24 13:47 Course Vital Signs Vital signs: Vital Signs Temperature 97.8 F 04/05/24 13:47 Pulse Rate 82 04/05/24 13:47 Respiratory Rate 14 04/05/24 13:47 Blood Pressure 144/76 H 04/05/24 13:47 Pulse Oximetry 96 04/05/24 13:47 Oxygen Delivery Method Room Air 04/05/24 13:47 Temperature 97.8 F 04/05/24 13:47 Pulse Rate 82 04/05/24 13:47 Respiratory Rate 14 04/05/24 13:47 Blood Pressure 144/76 H 04/05/24 13:47 Pulse Oximetry 96 04/05/24 13:47 Oxygen Delivery Method Room Air 04/05/24 13:47 Medical Decision Making MDM Narrative Medical decision making narrative: Patient's labs were negative for flu COVID RSV. Patient was given some Zofran for her nausea. Most likely a viral syndrome which her daughter has as well. Patient requests work note. Vital signs stable. Return to ED if worsening symptoms otherwise follow-up with family doctor. Patient comfortable care plan for home Differential Diagnosis Differential Diagnosis: Viral syndrome, gastroenteritis, COVID flu RSV Lab Data Lab results reviewed: Yes I reviewed the patient's lab results Labs: Lab Results 04/05/24 Range/Units 13:55 Influenza Type A Ag Negative Influenza Type B Ag Negative SARS-CoV-2 Ag (CV2AG) Negative (NEGATIVE) Discharge Plan Discharge Chief Complaint: Upper Respiratory Infection Clinical Impression: Viral infection Patient Disposition: Home, Self-Care Time of Disposition Decision: 14:39 Condition: Good Mode of Transportation: Private Vehicle Prescriptions / Home Meds: No Action No Known Home Medications Print Language: South African Instructions: Viral Syndrome (ED) Referrals: LUZ ZAPATA [Primary Care Provider] - 1 week Discharge Date/Time: 04/05/24 14:55
[2024-04-05] MEDS: ONDANSETRON 4 MG RAPDIS TABLET SL (14:04)
[2024-04-05 14:31] LABS: Influenza Virus A Antigen Negative; Influenza Virus B Antigen Negative; Internal Control Within Normal Limits
[2024-04-05 14:32] LABS: Internal Control Within Normal Limits; SARS-CoV-2 Ag NEGATIVE (NEGATIVE)
== END 2024-04-05 14:55 | disposition home or self-care (01) ==
PROVIDERS: Emergency Provider Emergency Medicine; PCP Nurse Practitioner Family
DX: B34.9 Viral infection, unspecified (principal); Z20.822 Contact with and (suspected) exposure to COVID-19
CPT/HCPCS: 87804; 87811; 99284; Q0162

== ENCOUNTER 2024-08-20 15:00 | Emergency (ER) | payer OTHER, SELFPAY ==
[2024-08-20 15:03] VITALS: BP 116/69; PULSE 85; TEMP 37; O2SAT 100; BMI 22.3
--- OUTSIDE RECORDS SUMMARY | 2024-08-20 15:05 | XMS_ITS | CCD ---
Author Organization [facility] Care Team Providers Care Per Diem Nurse Name Role Phone Gomez Card Primary Care [...] Drug allergy Weal (disorder) [facility] (1 source) Sulfonamides (Antibiotic) Drug allergy (disorder) 6 [facility] Repository Medications Current Medications Medication Drug Class(es) Dates Sig (Normalized) Sig (Original) brompheniramine maleate 0.4 mg/ml / dextromethorphan hydrobromide 2 mg/ml / pseudoephedrine hydrochloride 6 mg/ml oral solution (1 source) alpha-Adrenergic Agonist, Uncompetitive N-bmueil-P-aspartat e Receptor Antagonist, Sigma-1 Agonist Start: 05-29-2022 End: 06-05-2022 take 10 mL by mouth four times daily for cough and congestion Bromfed DM oral syrup 10 mL, Oral, QID for cough and congestion for 7 day(s), 280 mL, Refill(s) 0, [facility]/pharmacy #[id number], 163, cm, 05/29/22 10:46:00 EST, Height/Length Dosing, 71, kg, 05/29/22 10:46:00 EST, Weight Dosing Start Date: 05/29/22 Stop Date: 06/05/22 Status: Ordered oxybutynin chloride 5 mg oral tablet (1 source) Cholinergic Muscarinic Antagonist Start: 04-24-2020 oxybutynin 5 mg Tab See Instructions, PRN for urinary discomfort, 2 tab(s) Oral at night for bladder urgency, # 60 tab(s), Refills(s) 6, Pharmacy: [facility]/pharmacy #[id number], 162, cm, 04/24/20 10:24:00 EST, Height/Length [...] 09-18-2022 BASO # 0.0 103/ul Normal 0.0-0.1 [facility] Comment on above: Performed By: #### C BC #### [facility] [address] [place] [address] Dr. Ventura Moe Basophils/100 WBC (Bld) 0.8 % Normal 0.2-2.0 [facility] Comment on above: Performed By: #### C BC #### [facility] [address] [place] [address] Dr. Ventura Moe EO # 0.1 103/ul Normal 0.0-0.7 [facility] Comment on above: Performed By: #### C BC #### [facility] [address] [place] [address] Dr. Ventura Moe Eosinophils/100 WBC (Bld) 1.2 % Normal 0.9-7.0 [facility] Comment on above: Performed By: #### C BC #### [facility] [address] [place] [address] Dr. Ventura Moe Erythrocyte distribution width (RBC) [Ratio] 14.0 % Normal 11.0-15.0 [facility] Comment on above: Performed By: #### C BC #### [facility] [address] [place] [address] Dr. Ventura Moe Hematocrit (Bld) [Volume fraction] 36.9 % Normal 36.0-48.0 [facility] Comment on above: Performed By: #### C BC #### [facility] [address] [place] [address] Dr. Ventura Moe Hemoglobin (Bld) [Mass/Vol] 12.4 g/dL Normal 12.0-16.0 [facility] Comment on above: Performed By: #### C BC #### [facility] [address] [place] [address] Dr. Ventura Moe IG # 0.01 10e3/ul Normal 0.00-0.03 [facility] Comment on above: Performed By: #### C BC #### [facility] [address] [place] [address] Dr. Ventura Moe IG % 0.2 % Normal 0.0-0.5 [facility] Comment on above: Performed By: #### C BC #### [facility] [address] [address] [address] Ventura Moe LYMPH # 2.0 103/ul Normal 1.2-3.8 [facility] Comment on above: Performed By: #### C BC #### [facility] [address] [place] [address] Dr. Ventura Moe Lymphocytes/100 WBC (Bld) 40.6 % Normal 20.5-60.0 [facility] Comment on above: Performed By: #### C BC #### [facility] [address] [place] [address] Dr. Ventura Moe MANUAL DIFF REQ NO Normal [facility] Comment on above: Performed By: #### C BC #### [facility] [address] [place] [address] Dr. Ventura Moe MCH (RBC) [Entitic mass] 29.2 pg Normal 26.7-34.0 [facility] Comment on above: Performed By: #### C BC #### [facility] [address] [place] [address] Dr. Ventura Moe MCHC (RBC) [Mass/Vol] 33.6 g/dL Normal 29.9-35.2 [facility] Comment on above: Performed By: #### C BC #### [facility] [address] [place] [address] Dr. Ventura Moe MCV (RBC) [Entitic vol] 87.0 fL Normal 81.0-99.0 [facility] Comment on above: Performed By: #### C BC #### [facility] [address] [place] [address] Dr. Ventura Moe MONO # 0.6 103/ul Normal 0.3-0.8 [facility] Comment on above: Performed By: #### C BC #### [facility] [address] [place] [address] Dr. Ventura Moe Monocytes/100 WBC (Bld) 12.4 % Critically high 1.7-12.0 [facility] Comment on above: Performed By: #### C BC #### [facility] [address] [place] [address] Dr. Ventura Moe NEUT # 2.2 103/ul Normal 1.4-6.5 [facility] Comment on above: Performed By: #### C BC #### [facility] [address] [place] [address] Dr. Ventura Moe Neutrophils/100 WBC (Bld) 44.8 % Normal 43.0-75.0 [facility] Comment on above: Performed By: #### C BC #### [facility] [address] [place] [address] Dr. Ventura Moe Platelet mean volume (Bld) [Entitic vol] 9.4 fL Critically low 9.5-13.5 [facility] Comment on above: Performed By: #### C BC #### [facility] [address] [place] [address] Dr. Ventura Moe PLT 266 103/ul Normal 150-450 [facility] Comment on above: Performed By: #### C BC #### [facility] [address] [place] [address] Dr. Ventura Moe RBC 4.24 106/ul Normal 4.20-5.40 [facility] Comment on above: Performed By: #### C BC #### [facility] [address] [place] [address] Dr. Ventura Moe WBC 4.9 103/ul Normal 4.0-11.0 [facility] Comment on above: Performed By: #### C BC #### [facility] [address] [place] [address] Dr. Ventura Moe PREG QUANT HCGon 09-18-2022 HCG QUANT <1 Normal [facility] Comment on above: Performed By: #### P REGQNT #### [facility] [address] [place] [address] Dr. Ventura Moe HCG RANGE SEE BELOW Normal [facility] Comment on above: Result Comment: 5-50 0.2-1 WEEK 50-500 1-2 WEEKS 100-5,000 2-3 WEEKS 500-10,000 3-4 WEEKS 1,000-50,000 4-5 WEEKS 10,000-100,000 5-6 WEEKS 15,000-200,000 6-8 WEEKS 10,000-100,000 2-3 MONTHS Performed By: #### P REGQNT #### [facility] [address] [place] [address] Dr. Ventura Moe XR CHEST 2 Von [...] [place] Date: 2022-09-07 09:08 Normal [facility] CHLAMYDIA/GONOCOCCUS VINITA (SW AB/URINE/PAPon 08-03-2022 Chlamydia trachomatis, VINITA Negative Normal Negative [facility] Comment on above: Performed By: #### C T/NGNA #### [facility] [address] [place] [address] Dr. Ventura Moe Neisseria gonorrhoeae, VINITA Negative Normal Negative [facility] Comment on above: Performed By: #### C T/NGNA #### [facility] [address] [place] [address] Dr. Ventura Moe VAGINITIS/VAGINOSIS DNA PROB Charles 08-01-2022 Batool species Negative Normal Negative [facility] Comment on above: Performed By: #### V AGINT #### [facility] [address] [place] [address] Dr. Ventura Moe Gardnerella vaginalis Negative Normal Negative [facility] Comment on above: Performed By: #### V AGINT #### [facility] [address] [place] [address] Dr. Ventura Moe Trichomonas vaginalis Negative Normal Negative [facility] Comment on above: Performed By: #### V AGINT #### [facility] [address] [place] [address] Dr. Ventura Moe HERPES SIMPLEX VIRUS (HSV) C ULTUREon 07-25-2022 HSV Culture/Type Comment Abnormal [facility] Comment on above: Result Comment: Posi tive for Herpes simplex virus type-2. Typing was confirmed by monoclonal antibody microscopic immunofluorescence. Performed By: #### H SVCUL #### [facility] [address] [place] [address] Dr. Ventura Moe US PELVIS TRANSVAGon 023 [...] GISELA TIDWELL Date: 2022-07-09 15:34 Normal [facility] CHLAMYDIA/GONOCOCCUS VINITA (SW AB/URINE/PAPon 07-06-2022 Chlamydia trachomatis, VINITA Negative Normal Negative [facility] Comment on above: Performed By: #### V AGINT #### [facility] [address] [place] [address] Dr. Ventura Moe Neisseria gonorrhoeae, VINITA Negative Normal Negative [facility] Comment on above: Performed By: #### V AGINT #### [facility] [address] [place] [address] Dr. Ventura Moe VAGINITIS/VAGINOSIS DNA PROB Charles 07-04-2022 Batool species Negative Normal Negative [facility] Comment on above: Performed By: #### V AGINT #### [facility] [address] [place] [address] Dr. Ventura Moe Gardnerella vaginalis Positive Abnormal Negative [facility] Comment on above: Performed By: #### V AGINT #### [facility] [address] [place] [address] Dr. Ventura Moe Trichomonas vaginalis Negative Normal Negative [facility] Comment on above: Performed By: #### V AGINT #### [facility] [address] [place] [address] Dr. Ventura Moe Coding Summary.on 06-01-2022 Coding Summary. [id number] Gh 0bWw+PGhlYWQ+GH4OQNVcL 43fhOQhfI1LU8eHLV5YGRJ IVAGNBR4VFS9iwQG4JStbO 2VybiAv NgrcpJUmGE73ISv8MZW6tO crJPivgA6yqIKlB2j2SyJj VC00yN60LPjtGJSeNvH3Bk ZpbjsgbWFy Q0liDmEbnXAwNos+PHRhYm xlIHdpZHRoPScxMDAlJyBz uHtuYZ6eLi8cUNCtHCInyL xhcHNlOiBj n7hzLXLcXValGE6whDibY3 MqzBM6BAJrg6x7Ay98tIX+ MVRsKJH7tShgBXsxj863Mu Leu9ebNYK3 eCYqOTijKQB4M05kb6E5BF UeULQcGKB5aBL3cH5arQlv ovlaE6HqqODxPhY2INH6fM RwaR8dfDby hiutnS4nBzw+B86SQQ9HBM JRNZ1TKqj5N4ThXszbhPB+ PP85HBYgVV33kHMnsQRer1 mmxYw5IcAp NQQaXVQ0pDdvUVzgg1IqXZ NgK64ulWWgc2Z6RJZjzLuw rRDeRlZnjXR8rH0oJVcvgg kqu2vehzih Sfpky8whjy12jQ37D07dLU ofKFMcDWD4XKHyNKIaaOrp ch7kbD3mZl5+RIgqg9qgg7 jayRy0TnKv DLSltoNxmCrdALR8w0XyYl 25U0UhdWsla9TzMlq7nx59 bKYgc5Z0dSY2VTwzYGBaeJ 6gYGbtJrL4 XKSyLsVhyP62yAPyEKdtPg 6yjRevzDokPV8rVZEmrpvi SIWaqX3kDYZrnECciAqgZJ 4wNTBpbjtm x901PyFcBSW0PNBotAUzS2 TwtY0hXrTlTXVtCCFwI7Aa fBNgZQxoG047ZEefEfI2LH EpkfHtU7Dq AQZjtSpiUeN2f5W6Ie7Qo6 YzdoclSJF4RRzzBSTiQqVc QaNmDlN1F6LtNcm6EAEgeN seKD3uV6Gv PPXoecxahvtmxZY6JUOoUM KpzE14zFSsPYqsFs7si1C0 i782QTZoTAQjwU12Sy8jxT ogMTBwdCBU dX3asgfuu0dneobuXnFsZU HbPSv4JBt9LZAcyYktTpGu SZJ4PiI7PBW8oUVbyM2zfP yjcfewnY8c Oyc+V15glE8zYSK5VCG7ti leBFFqcdLsUQ52IP74A4Lq PjwvdGFibGU+PGRpdiBzdH zhBK8hUkLl d2eem1QaOYqxF6KaMZToIB rpMlt4RBXbCZU8tGG0gI9a AKNfDMsfs8Q8vKC6A8Twuv Cqen5sn6np DABoLStkZ27diIWvx7K7TW QtpXD0EUOtjQvuMjQlaO16 Oyc+IAKwxJrsk4UwMpsgp8 lky4qxhXh9 JxVhWXJvhjDsgMoeWVO1i2 IlPn23A31tWPetPOCoOSHk HEQzYRSdeBgfzu1jbO2lIg 8+PGNvbCB3 hGU1wT0aHADzMiI0CXonQ9 61HfDkgFFkDevpd6qjm6ky bBd3XpHxYJNcqpAscJsnIY M0f9EqEu30 O96yVGofCPTmPWLmAORqUP DfdPaoyg4drH2mNq0+PC9j h5rkia87yI20dJX+PHRkIH G6fLrvAKfb ITYjcA0gGHxkGqU8LVDjUl FlhH46uYZdFKuyYj8nqKtd pLwhFD3qFNBmyaxnk468Cu Kub6lnWPZw tMZlTCwxUZH7T94kn6R2TP YsCZQaICP4zMH1zL9ruZou bjogbGVmdDsgdmVydGljYW qjZXveV045 IHRvcDsnPlBhdGllbnQgTm WqZOn9H9FvDjg3DTKkhEpt MT6blWAyKHpnIf2yqWeyaY yaGW3wXZKs unmed388FpQpb3tlPBVrwN IoZFagMYG8Y31ns7L2ZQOr YZEkOJL7nRB5jA0raFsdtf ogbGVmdDsg wfUprSnmJJieSSzbC502YG RvcDsnPkJpcnRoIERhdGU6 UQ08DM55sPMct4P8gNN8W9 BhZGRpbmct hbjobDP5HJRhOEMttN47Km 9lsMnxHy1pSZCrMWF1SHNn fIDgL5BfaL7aNpStJCNcDL EuD3UezMSw IVuwS445YCwwNnX2NCQdxf TfA2DyQETeiItnWaP4q1E1 Lh0DM2X1YT46JO22hHTim7 Z8hSV9L3Mv GBGpdtwmmniyeRE8PBCyUL CzqT88Ot4twIwgEg9qZFNv QMU0RHKwjKBfE5DoqP3mAr AjMDAwMDAw Y0SavQMjICuvY273HGvgYk S3CBSsznRaN4YnEZAfgNwp JzK0l1I9Hc6KJOx1EJ15RP 69lKVdz4B6 cSS2Q6QeYSDsowkmsxehpR E8ECUxWDLzsJ38Mn9anNqb Is5wBGLxCAK7MDZlcHUuE1 HufN0tBvKn TZFoBEStP3IihHNrUQpgH7 27ERqaQgB5IKVqcnHvR5Wu XFZvyCxdDzS3a1A9Lq2UFK YmLV13PRV2 hOR4TY78EI61E5YiYcnchF FibGU+PHRhYmxlIHdpZHRo AYufVQZjDbFmnBabLV9qFj 9yZGVyLWNv iSiitGOmFeVxf4yjVEErJM teKA5xeMtfQ0KcpNN5WWDf u6z0Hd23W78nP6XjhDP+PG AzqWM5uID1 lQ0nVmTgBlK7SBuvD714Yu DkgNGaSdhud6jru8tzqEc6 DvX7YEUntpRcpUmmZAR2h8 RmDe49F86j IHdpZHRoPSIxNSUiIHZhbG kslv7fyB6gAr6+PGNvbCB3 ePB5aD6nLnYbJlB2JVknD1 49InRvcCIv Yfoye6odb7kzbIk5CdGpRX DukoNshCgqFOS2q2BbKc72 B4SfsZmvj7GhLah8ub91mJ Alr6U7iKK7 T5JsOFZfdsjivKJamSxtBF 6xZUAypyxhONMdvI6fBTYm S7f1OgAxGyX9GMlyO0Ikuf N8QYTwgEMi CAonMSQ6S85ma2Q1BFCoNJ RhQVB0lKA8rY1zrXfqmmuc bGVmdDsgdmVydGljYWwtYW dlQ635FADc gKrvKJRkjM6vQMZqjMJucB jnZJ3aYRVovnppBrJTZYQM RXVOKSRENde8O3IeOaf0MQ VpvMluOS4u iNCnOUcfRj8joGoeePdvDA 9xXDBrpabyRFHhpD8oZLNs xZDyqKsrPO1vNCYlnioze1 50PaHuMHX6 XPArdVChG2WxaJ9pFsSlGR KpROJuN9MimAMcKYwzO132 AJziIbQ7TCGwqzRkD2OeJT FsaWduOiB0 h0U4Mq4oVy3lCQ5gRVfcTV 97VH05oVEtx8M1uVL4X8Va AVZqebhrestskMO8HYFeFA HhzZ48bRUi STrsJu3py4O5q669SEHyVI YenM08Na3tqRhrBIKgmXHD cX8arxamu3hbgcxyEtRoQF JnAJd7QQy6 UHUogQnuOiQwLQY6JrP8DH R8uLHotB4kxRtbbedgsV8v Oyc+NjtxQSXqkbL4T8UtPn x6WWJgnJuh NB6xjSTtNUaoPa0qfYsmpO ijNE8kOUUcukzvBAQciP5z LRYzrKJctElmKZ9dRXWurb cim564JiPv PCV4HTGpnJHmL2RntC2cHj VdUUFaKLPbE8ZpuDQjXQfd L968GPceHrX9JECeneZwS8 FsLWFsaWdu AsL8a5D2Wa4BEX1nwKU4Y5 AyTcz0UMSpqQbmKU8ugCJh QVkpWn5euIibnVyvFT7wIJ BpbjtwYWRk nA4iRNBszKFetOodEJ4kOQ Fnqohxh497CiHcWEV7EIPd lUCtD6FmsL9fQdXlNVRmHJ ZtI4XacRFp FCpsJ589UCezXhK8NHVylw IbS9NqOVCbxHgjZkU3e9X4 Vi9KwQWlE3VaI1j4Y5YvKi wvdHI+PC90 PNPrBD42uJNmyDQeg8tvyV o9NkJbOXPpBWH0gKioWPcv n3BgGAMlJ10ouIYvj0M2XN NvbGxhcHNl LwXxgTA1kV0gSGwixgfud6 xmlxurUosct8lpeg54cM83 V31sWTauMQLoURLxDZHfMS MkjIcsyb6d wI6mFp6+DWGhlKN8bUO0rE 3dYdVrXvD6YXfmG573ErTx bNIyUkqou7pty2yjiAu0Eu IwJSIgdmFs xMpkHOI3y9YyVx91L85wSX dpZHRoPSIyMCUiIHZhbGln xr4yuQ8pHy5+YQ5th3lnkz 47rB88hMG+ GRSeLJL9dNnxRHoiZGNfaW 9nZDvhSpZ7QVSgOhUyaC28 oAWlDQftHi9juTcoyKgfNZ 4wNTBpbjtm t199HyQtf3tpQURahPPmNQ aiEXC7D88kd4P9VCJcUCRp NVG3xQP7uR7buHnerxkpzS VmdDsgdmVy oUafJQjxROaxX299BNOmrF grWxCqfSDzK7gnsxXALK0g OjwvdGQ+VQEcETJ8gMdgNQ wtOAGmdQ9e DZXjS7k8FxQlNaU9AOccH9 AyluZ7XHUpuUUcCBGbpCMH lL1jsknka4tbiufbStFmXX AeHAk7MYu2 QLTrhBxrGmGtDYW1AvQ7MU H2gYFtlG0zzMgccmaqzB3n Oyc+RklOOjwvdGQ+PHRkIH M9nReqRIvj ZDShuA9hDZNgQ3v4DsUkDd C6PAwvK5ZfyfJ9XHGamOBu CCItuINEhF9ntjesl9bsvr ogIzAwMDAw GEt7RSm9KOTevWczKxLyBK Q9SmG2KJF0tKVycP9vqVjh ejcbeZ0fIyp+TVJOOjwvdG Q+PHRkIHN0 oTnqAMseZZFfoU7cASXuJ5 r3OtPkZpF7BXvqA1FgmqZ7 LKEehZXzLQTnqKJKbQ0mcr cvg9rfjdjs VrJnJSJjHPa4AJx7GHEoiC kyZsSeXLM1AoP5KRA1jEUb fS9gxQewcpbkkV8uJtw+UG A6KIF4ZI75 RM05J7DbMosnoXXfxJI+PH RhYmxlIHdpZHRoPScxMDAl IyRrlVtbGC6sDz7aZAUoII NvbGxhcHNl OiBj (more content not included)... Normal [facility] Covid-19 PCR ([facility])on 05-21 SARS-CoV-2 (COVID-19) RNA VINITA+probe Ql (Unsp spec) Not detected Normal NOT DETECTED [facility] Comment on above: Result Comment: This test is not yet approved or cleared by the [place] FDA. When there are no FDA-approved or cleared tests available, and other criteria are met, FDA can make tests available under an emergency access mechanism called an Emergency Use Authorization (EUA). The EUA for this test is supported by the [place] of Health and Human Service's (HHS's) declaration [...] consistent with SARS-CoV-2. Performed By: #### C [facility] #### [facility] [address] [place] [address] Dr. Ventura Moe ED Note-Physicianon 06-01-20 ED Note-Physician Basic Information Time Seen: Alejandro MCGINNIS Skip 05/29/2022 10:42 Chief Complaint Mom reports congestion and coughing up phlegm since last night. Denies fever. History of Present Illness 26-year-old female comes to the ED for evaluation of cough and congestion. She presents with her children have similar symptoms. She states they were seen at [facility] recently where one of them has [...] for 7 day(s), 280 mL, Refill(s) 0, [facility] #[id number], 163, cm, 05/29/22 10:46:00 EST, Height/Length [...] Card In 3 days 06/01/2022 EST [address] [place] [address]- Business (1) Additional Instructions: Patient Education Upper Respiratory Infection, Adult Influenza, Adult Attestation Patient seen and evaluated by the physician entry level marketing assistant. Attending physician was present in the emergency department and supervised care. This visit was performed by both the physician and an APC. I performed all aspects of the MDM as documented. This report was transcribed using voice recognition software. Every effort was made to ensure accuracy, however, inadvertently computerized sign designer mistakes may be present. Appropriate healthcare PPE [...] Bones unremarkable. Signed By: Ruel Limon MD [facility] Comment on above: Result Comment: Elec tronically Signed By: Skip Allen PA-C\.br\Date and Time Signed: 05/29/22 11:47 EST\.br\Electronically Co-Signed By: Jona Almeida DO\.br\Date and Time Co-Signed: 06/01/22 07:33 EST INFLUENZA A AND B AGon 06-01 INFLUBNEGH SEE BELOW Normal [facility] Comment on above: Result Comment: Nega tive for Flu B protein antigen. Infection due to Flu B cannot be ruled out. Flu B antigen in the sample may be below the detection limit of the test. Performed By: #### V AGINT #### [facility] [address] [place] [address] Dr. Ventura Moe INFLUENZA A AG Positive Abnormal NEGATIVE SEE COMMENT [facility] Comment on above: Performed By: #### V AGINT #### [facility] [address] [place] [address] Dr. Ventura Moe INFLUENZA B AG Negative Normal NEGATIVE SEE COMMENT [facility] Comment on above: Performed By: #### V AGINT #### [facility] [address] [address] [address] Ventura Moe INFLUPOSH SEE BELOW Normal [facility] Comment on above: Result Comment: NOTE : Live attenuated influenzae vaccine viruses can cause a positive result for a rapid influenza diagnostic test if administered up to 7 days prior to rapid testing. Performed By: #### V AGINT #### [facility] [address] [place] [address] Dr. Ventura Moe INTERNAL CONTROLS Within Normal Limits Normal Wi thin Normal Limits [facility] Comment on above: Performed By: #### V AGINT #### [facility] [address] [place], [place] [address] Dr. Ventura Moe Consent for Treatmenton Consent for Treatment [id number]:[id number] Normal [facility] Discharge Instructionson Discharge Instructions [id number]:127 Normal [facility] ED Clinical Summaryon 2021 ED Clinical Summary [address] [address] ED Clinical Summary Person Information [facility]: [facility] Age: 26 Years : 1995 Sex: Female Language: Turkish PCP: Gomez Card MD Marital Status: Single [...] 05/29/2022 12:00:28 05/29/2022 12:00:28 05/29/2022 12:00:28 ADDRESS: [address] [place] [address] DR SHAYLA Mckay [facility] [phone] PHYS DOC NOTES: MEDICAL INFORMATION: Prescriptions Given: New Medications [id number], [address], [place] [id number], [phone] brompheniramine/dextro methorphan/PSE (Bromfed DM oral syrup) 10 [...] Follow up: With: Address: When: Gomez Card [address] [place] [address], [place] [address] Business (1) In 3 days 06/01/2022 DIAGNOSIS: Cough; Upper respiratory infection Normal [facility] ED Patient Education Noteon 05-29-2022 ED Patient [...] to help relieve symptoms, such as: ? Mxcp-lio-grzjmzz cold medicines. ? Cough suppressants. Coughing is [...] other clear broths. General instructions ? Take rlqz-nlx-akvdzue and prescription medicines only as told by [...] and water are not available, use hand correctional facility nurse. ? Avoid touching your mouth, face, eyes, [...] common infecti (more content not included)... Normal [facility] ED Patient Summaryon 022 ED Patient Summary [place] [id number] Patient Discharge Instructions Person Information Name: MICHAEL SEQUEIRA Age: 26 Years Arrival Date: 05/29/2022 10:40:59 Discharge Diagnosis: Cough; Upper respiratory infection Primary Care Physician: Gomez Card MD Provider Information Primary Provider: Jona Almeida DO [facility] Resident:Skip Allen PA-C The exam and treatment you received in the Emergency Department were for an urgent problem and are not intended as complete care. It is important that you follow up with a doctor, nurse practitioner, or physician?s entry level marketing assistant for ongoing care. If your symptoms [...] Follow-up Instructions: With: Address: When: Gomez Savageasad [address] [place] [address], [place] [address] Business (1) In 3 days [...] opioids can be used to help relieve xsyemptj-uo-mxjjyt pain and are often prescribed following a [...] be struggling with addiction, tell your health transitions rn care coordinator and ask for guidance or call [facility] National Help (more content not included)... Normal [facility] XR Chest 2 Viewson 2 XR Chest [...] MD Transcribed by: SISSY Technologist: JESUS Normal [facility] PAP ACOG PANEL 2: 21 to 29on 03-25-2022 . . [facility] Comment on above: Performed By: #### [id number] #### [facility] [address] [address] [address] Ventura Moe Age Gdln ACOG Testing - [facility] Comment on above: Performed By: #### [id number] #### [facility] [address] [address] [address] Ventura Moe DIAGNOSIS: Comment [facility] Comment on above: Result Comment: NEGA TIVE FOR INTRAEPITHELIAL LESION OR MALIGNANCY. Performed By: #### [id number] #### [facility] [address] [address] [address] Ventura Moe Methodology: Comment [facility] Comment on above: Result Comment: This liquid based ThinPrep(R) pap test was screened with the use of an image guided system. Performed By: #### [id number] #### [facility] [address] [place] [address] Dr. Ventura Moe Note: Comment Normal [facility] Comment on above: Result Comment: The Pap smear is a screening test designed to aid in the detection of premalignant and malignant conditions of the uterine cervix. It is not a diagnostic procedure and should not be used as the sole means of detecting cervical cancer. Both false-positive and false-negative reports do occur. . Performed By: #### [id number] #### [facility] [address] [place] [address] Dr. Ventura Moe Performed by: Comment Normal [facility] Comment on above: Result Comment: Joshua Callahan, Senior Qc Technician (ASCP) Performed By: #### [id number] #### [facility] [address] [place] [address] Dr. Ventura Moe Reflex Criteria: Comment Normal [facility] Comment on above: Result Comment: The HPV DNA reflex criteria were not met with this specimen result therefore, no HPV testing was performed. . Performed By: #### [id number] #### [facility] [address] [place] [address] Dr. Ventura Moe Specimen adequacy: Comment Normal [facility] Comment on above: Result Comment: Sati sfactory for evaluation. Endocervical and/or squamous metaplastic cells (endocervical component) are present. Performed By: #### [id number] #### [facility] [address] [place] [address] Dr. Ventura Moe CHLAMYDIA/GONOCOCCUS VINITA (SW AB/URINE/PAPon 03-20-2022 Chlamydia trachomatis, VINITA Negative Normal Negative [facility] Comment on above: Performed By: #### C T/NGNA #### [facility] [address] [place] [address] Dr. Ventura Moe Neisseria gonorrhoeae, VINITA Negative Normal Negative [facility] Comment on above: Performed By: #### C T/NGNA #### [facility] [address] [address] [address] Ventura Moe VAGINITIS/VAGINOSIS DNA PROB Charles 03-19-2022 Batool species Negative Normal Negative [facility] Comment on above: Performed By: #### V AGINT #### [facility] [address] [address] [address] Ventura Moe Gardnerella vaginalis Positive Abnormal Negative [facility] Comment on above: Performed By: #### V AGINT #### [facility] [address] [address] [address] Ventura Moe Trichomonas vaginalis Negative Normal Negative [facility] Comment on above: Performed By: #### V AGINT #### [facility] [address] [address] [address] Ventura Moe Vital Signs Date Time Vital Sign Value Performing Clinician Faci lity 05-29-2022 10:44-0500 Body temperature 98.06 [degF] Jona Brennane [facility] 05-29-2022 10:44-0500 Diastolic blood pressure 82 mm[Hg] Jona BrennanWhyteboard [facility] 05-29-2022 10:44-0500 Heart rate 95 /min Jona BrennanWhyteboard [facility] 05-29-2022 10:44-0500 Respiratory rate 18 /min Jona BrennanWhyteboard [facility] 05-29-2022 10:44-0500 SaO2% (BldA) [Mass fraction] 98 % Jona Juan Pablo [facility] 05-29-2022 10:44-0500 Systolic blood pressure 123 mm[Hg] Jona [employer] [facility] Encounters Encounter Date Encounter Type Care Provider Facility Start: 12-07-2023 End: 12-07-2023 ambulatory SORIN AGUILAR Not Available Start: 11-03-2023 End: 11-03-2023 ambulatory JUAN ALBERTO MCDERMOTT Not Available Start: 09-18-2022 End: 09-18-[address] SORIN AGUILAR . Facility:[facility] Start: 09-12-2022 Encounter for preprocedural respiratory examination DR SORIN AGUILAR . [facility] Start: 09-07-2022 End: 09-08-[address] SORIN [...] 05-29-2022 Emergency department patient visit Jona Almeida Facility:[facility] Start: 05-29-2022 End: 05-29-2022 Emergency department patient visit Jona Almeida [facility] Start: 03-17-2022 End: 03-17-[address] SORIN AGUILAR . Facility: Procedures Date Procedure Procedure Detail Performing Clinician of child (finding) Hakeem Almeida Hemorrhoids (disorder) Jona Almeida Payers Date Payer Category Payer Unknown [id number] 2.16.8 [id number] 1993 Unknown [id number] 2.16.84 [id number] 1993 Unknown [id number] 2.16.84 [id number] 1993 Unknown [id number] 2.16.84 [id number] 1993 Unknown [id number] 2.16.84 [id number] 1993 Unknown [id number] 2.16.84 [id number] 1993 Unknown [id number] 2.16.84 [id number] 1993 Unknown [id number] 2.16.84 [id number] 1993 Unknown [id number] 2.16.84 [id number] 1993 Unknown [id number] 2.16.84 [id number] 1993 Unknown [id number] 2.16.84 [id number] 1959 Unknown [id number] Social History Date Type Detail Facility Start: 04-24-2020 Tobacco smoking status Light t obacco smoker (finding) [facility] Sex Assigned At Female [facility] Functional Status Date Assessment Result Facility 05-29-2022 Functional Status N/A [facility] Clinical Note 09-18-2022 Note Date & Type Note Facility 09-18-2022 Note OPERATIVE NOTE OPERATION DATE: 09/18/2022 PROCEDURE: Robotic assisted bilateral laparoscopic salpingectomy. PREOPERATIVE DIAGNOSIS: Desires permanent sterilization, multiparity. POSTOPERATIVE DIAGNOSIS: Desires permanent sterilization, multiparity. ANESTHESIA: General. SURGEON: Sorin Aguilar D.O. ORTHOPEDICS NURSE: DAMIAN Pinto URINE OUTPUT: Yellow and clear. [...] and needle counts were correct x2. [facility] Discharge instructions 05-29-2022 Note Date & [...] medicines to help relieve symptoms, such as: Ltkj-ezv-fvmipsi cold medicines. Cough suppressants. Coughing is a [...] and other clear broths. General instructions Take hwep-grz-heoobzg and prescription medicines only as told by [...] and water are not available, use hand correctional facility nurse. ?Avoid touching your mouth, face, eyes, or [...] 12/01/2001 Document Revised: 06/15/2019 Document Reviewed: 01/21/2018 [employer] Patient Education 2020 [employer]. 05/29/2022 12:00:28 Influenza, Adult Influenza, Adult Influenza, [...] Your health care provider may recommend: Taking jztj-urh-qhtdflr medicines. Drinking plenty of fluids. In many [...] juice, and low-calorie sports drinks. Eat bland, phft-de-kmkeoi foods in small amounts as you are able. These foods include bananas, applesauce, rice, lean meats, toast, and crackers. Avoid drinking fluids that contain a lot of sugar or caffeine, such as energy drinks, regular sports drinks, and soda. Avoid alcohol. Avoid spicy or fatty foods. General instructions Take cgvd-uzc-fiewocj and prescription medicines only as told by [...] water are not available, use alcohol-based hand correctional facility nurse. Keep all follow-up visits as told by [...] 2001 Document Revised: 09/07/2019 Document Reviewed: 11/23/2018 [employer] Patient Education 2020 [employer]. Follow Up Care 05/29/2022 10:41:29 With:Gomez Card Address: [address] [place] [phone] Business (1) When:06/01/2022 11:40:58 [facility] Evaluation + Plan note Note Date & Type Note Facility Evaluation + Plan note No data available for this section [facility] Progress note Note Date & Type Note Facility Progress note No data available for this section [facility] Summary Purpose Family History No Family History Records FoundNo Family History Records FoundNo Family History Records Found Advance Directives No Advanced Directives Records FoundNo Advanced Directives Records FoundNo Advanced Directives Records Found Additional Source Comments Patient Care team informatio n (unrecognized section and content) Personnel Name: Gomez Card MD Address: Address: [facility] [place] [address]- INFORMATION SOURCE (unrecogn ized section and content) DATE CREATED AUTHOR 06/01/2022 Pablo Early [facility] DATE CREATED AUTHOR AUTHOR'S ORGANIZ ATION 10/28/2022 [facility] DATE CREATED AUTHOR AUTHOR'S ORGANIZ ATION 12/09/2023 [facility] dical Specialists EPIC FOR RECORDS PERTAINING [...] BE BASED ON THE PRIMARY CLINICAL RECORDS. [facility] [employer] provides no warranty or guarantee of the accuracy or completeness of information in this document.
--- NOTE | 2024-08-20 15:12 | ED.DENTAL1 ---
HPI - Dental/Oral General Chief complaint: Dental/Oral Stated complaint: Dental Pain Time Seen by Provider: 08/20/24 15:01 Source: patient Mode of arrival: walk-in History of Present Illness HPI Narrative: Patient is a three 1-year-old female presents to the ER with concerns of right lower dental pain and swelling patient notes symptoms worsened this morning mild ache yesterday she has had problems with her teeth on and off and has not seen the dentist in recent months. Patient plans to go to [facility] tomorrow for evaluation. She notes some swelling in her right lower jaw and is concerned of infection. The patient vapes. She reports needing extractions of her molars, but has been unable to do so. She denies any fevers or chills she denies chance of citing prior tubal ligation. She took Motrin earlier this morning with minimal improvement. She denies any nausea or vomiting. She denies Difficulty swallowing and speaks with a clear voice MD Complaint: Reports tooth pain Location: Tooth # (32/ 31) Onset (ago): day(s) (1) Duration: constant Severity: moderate Relieving factors: nothing Exacerbating factors: nothing Context: history of dental caries Associated symptoms: gum swelling Related Data Previous Rx's ?Medication ?Instructions ?Recorded clindamycin HCl 300 mg capsule 300 mg PO Q6H 7 days #28 caps 08/20/24 ibuprofen 600 mg tablet 600 mg PO QID PRN pain 7 days #28 08/20/24 tabs Allergies Allergy/AdvReac Type Severity Reaction Status Date / Time Sulfa (Sulfonamide Allergy Hives Verified 04/05/24 13:47 Antibiotics) Review of Systems ROS Constitutional Denies: fever, chills or change in weight Ears, nose, mouth, and throat Reports: mouth pain (+ dental pain); Denies: throat pain, neck pain or throat swelling Cardiovascular Denies: chest pain or palpitations Respiratory Denies: shortness of breath or cough Gastrointestinal Denies: abdominal pain or nausea Musculoskeletal Denies: back pain or neck pain Neurological Denies: headache Psychiatric Denies: anxiety PFSH PFSH Social History Little interest or pleasure in doing things: not at all Feeling down, depressed, or hopeless: not at all Exam Narrative Exam Narrative: Nurses notes reviewed and patient is noted to be non-hypoxic. General: The patient is comfortable, alert and oriented x3, well appearing, non toxic in no apparent distress. Head: Atraumatic and normocephalic. Eyes: Normal conjunctiva, no exudates. ENT: The oropharynx is normal. No pharyngeal erythema, uvular edema, tonsillar exudates, asymmetry or trismus. Uvula is midline. Mouth is normal to inspection With the exception of chronic dental caries/ fractures in all molar teeth. + pain on percussion of the tooth 31 and 32 with evidence of dental caries and early abscess. There is no evidence of facial asymmetry. Slight drainge mid tooth and gum swelling supports early abscess. Floor of the mouth is soft. No tenderness in the submental or submandibular space. No tongue elevation or deviation. The patient has no evidence of gingivitis, ANUG or other acute pathology. Airway is patent. Neck: The neck demonstrates normal range of motion. No meningeals signs are present. No stridor. No masses or lymphandenopathy noted. Respiratory: No acute distress, lungs are clear to auscultation, no wheezing, rhonchi, or rales noted. No stridor or retractions are noted. Cardiovascular: Regular rate and rhythm Skin: The skin exam shows no evidence of rashes Neuro: Alert and oriented x4, normal speech Lymphatic: No cervical lymphadenopathy Constitutional Vital Signs, click to edit/add: Last Vital Signs Temp 98.6 F 08/20/24 15:03 Pulse 85 08/20/24 15:03 Resp 16 08/20/24 15:03 BP 116/69 08/20/24 15:03 Pulse Ox 100 08/20/24 15:03 Course Vital Signs Vital signs: Vital Signs Temperature 98.6 F 08/20/24 15:03 Pulse Rate 85 08/20/24 15:03 Respiratory Rate 16 08/20/24 15:03 Blood Pressure 116/69 08/20/24 15:03 Pulse Oximetry 100 08/20/24 15:03 Temperature 98.6 F 08/20/24 15:03 Pulse Rate 85 08/20/24 15:03 Respiratory Rate 16 08/20/24 15:03 Blood Pressure 116/69 08/20/24 15:03 Pulse Oximetry 100 08/20/24 15:03 MDM - Dental/Oral MDM Narrative Medical decision making narrative: Patient presents with a history of known poor dental care to the bilateral molars patient states she has talked with the dentist about having these extracted but has not done so yet with her insurance she notes increasing pain last night worsening today there is some drainage in the mid tooth and gum swelling concerning for abscess but nothing focal for incision and drainage. We discussed that she should not be vaping with her dental pain recommend Tylenol and Motrin as directed she will be given a prescription of Motrin for pain we discussed starting antibiotics given concern of abscess formation and she is to take with food to minimize any possible side effects. She is given the first dose here. Patient will follow-up in dental clinic tomorrow as she plans to see Mely heath previously being seen in the [facility] department for dental care. We discussed bigger dental schools for potential surgical intervention if needed. The patient is to followup with DDS tomorrrow and with pcp in next3-5 days or to return to the emergency department should any of the signs or symptoms worsen or new symptoms develop. Patient had questions answered. The patient agrees with the following Diagnosis and Treatment plan and the patient will be discharged home. Discharge Plan Discharge Chief Complaint: Dental/Oral Clinical Impression: Dental caries, Dental abscess, Toothache Patient Disposition: Home, Self-Care Time of Disposition Decision: 15:13 Condition: Good Prescriptions / Home Meds: New clindamycin HCl 300 mg capsule 300 mg PO Q6H 7 Days Qty: 28 0RF ibuprofen 600 mg tablet 600 mg PO QID PRN (Reason: pain) 7 Days Qty: 28 0RF Print Language: Telugu Instructions: Dental Abscess (ED) Additional Instructions: Keep appt with Mely Heath tomorrow: Dental sheet given- consider [facility] for surgical intervention/ extractions Referrals: LUZ ZAPATA [Primary Care Provider] - 1 week
[2024-08-20] MEDS: BENZOCAINE 30 ML, lidocaine HCL 15 ML MM (15:25)
[2024-08-20] MEDS: IBUPROFEN 600 MG TABLET PO (15:26)
[2024-08-20] MEDS: CLINDAMYCIN HCL 150 MG CAPSULE 300 MG PO (15:26)
== END 2024-08-20 15:36 | disposition home or self-care (01) ==
PROVIDERS: Emergency Provider Emergency Medicine; PCP Nurse Practitioner Family
DX: K04.7 Periapical abscess without sinus (principal); K08.89 Other specified disorders of teeth and supporting structures; K02.9 Dental caries, unspecified; F17.290 Nicotine dependence, other tobacco product, uncomplicated; Z98.51 Tubal ligation status
CPT/HCPCS: 99283

== ENCOUNTER 2025-01-16 12:28 | Emergency (ER) | payer OTHER, SELFPAY ==
--- OUTSIDE RECORDS SUMMARY | 2023-01-18 09:15 | XMS_ITS | Continuity of Care Document ---
Author Organization [facility] Address [address] [place] [address] Phone Care Team Providers Care Expense Clerk Name Role Phone Niru Baer DDS Unavailable Unavailable Allergies, Adverse Reactions, Alerts Substance Reaction Status Criticality Sulfa (Sulfonamide Antibiotics) Active No Information Medications Medication Instructions Dosage Effective Dates (start - stop) Status Comments valacyclovir 500 mg tablet take 1 tablet by oral route every day 500 MG - Active Procedures Procedure Date Oral Hygiene Instruction Resin Composite 2s; Posterior 3 Resin Composite 3s; Posterior 3 Resin 4+ W/incis Angle Anterior 023 Oral Hygiene Instruction Comp Oral Eval New/estab Patient 2022 Intraoral-complete Series (bw) Advance Directives Directive Yes / No Effective Date File Name No Information Encounters Encounter Description Practice Location Reason(s) For Visit Diagnoses Date Provider Providers Copied on Encounter [facility], [address] [place] [address], [id number], tel:[phone] Dental Clinic tl (chief complaint) Encounter for screening for dental disorders Buffy ALLEN Niru. . tel:[phone] [facility], [address] [place] [address], [id number], [place] tel:[phone] Dental Clinic tl (chief complaint) Encounter for screening for dental disorders Buffy ALLEN Niru. . tel:[phone] [facility], [address] [place] [address], [id number], [place] tel:[phone] Dental Clinic DN (chief complaint) Encounter for screening for dental disorders Buffy Marrufo. . tel:[phone] Family History Family Member Type Diagnosis Age At Onset No Information Payers Payer name Insurance type Covered democrat ID Teresa garcía(milton) Marquita Belcher C [employer] [id number] D Medicaid Wrap - [facility] [id number] Social History Type Description Quantity Date Captured Comments Alcohol Use Details Unknown Caffeine Use Details Unknown Tobacco Use Status No Information Smoking Status No Information Sex Female Sexual Orientation Straight or heterosexual Gender Identity Female Vital Signs Date / Time: Height Weight BMI Pulse Rate Blood Pressure Temperature Respiratory Rate Body Surface Area Head Circumference Head Circ. Percentile Wt./Girish. Percentile BMI percentile Pulse Ox Inhaled Ox 1:35 PM 65 /min 115/79 mm[Hg] 96.90 F Chief Complaint And Reason For Visit From encounter dated '01/18/2023 13:15'. tl (chief complaint). Description: tl Reason For Referral Reason For Referral No Information Plan Of Treatment Date Type Action Status Goal RLP. Due on due Goal Tdap Vaccine. Due on 2022 due Goal PAP. Due on due Goal Tdap. Due on due Goal Influenza vaccine. Due on due Goal PRAPARE ASSESSMENT. Due on due Goal Depression screening. Due on due Goal Tdap Vaccine. Due on 2022 due Goal Tdap. Due on due Goal PRAPARE ASSESSMENT. Due on due Goal RLP. Due on due Goal Influenza vaccine. Due on Ju due Goal Depression screening. Due on due Goal PAP. Due on due Goal Tdap Vaccine. Due on 2022 due Goal Tdap. Due on due Goal PRAPARE ASSESSMENT. Due on M due Goal RLP. Due on due Goal Influenza vaccine. Due on Ma due Goal Depression screening. Due on due Goal PAP. Due on due History Of Present Illness Encounter Date Complaint History Of Prese nt Illness tl tl tl tl DN DN Functional Status Date Functional Assessmen t No Information Instructions Date Instruction Additional Infor mation No Information Assessments Type Assessment Date No Information Patient Care Teams Name Effective Dates (start - stop) Status Members No Information
--- OUTSIDE RECORDS SUMMARY | 2024-10-04 04:18 | XMS_ITS ---
Author Organization [facility] [place] Address [address] [place] [address] Care Team Providers Care Seed And Fertilizer Specialist Name Role Phone Yoli Domingo Primary Care Provider REASON FOR VISIT f/u Effexor Encounters Encounter Location Date Provider Diagnosis [facility] [address] [place] [address] 10/04/2024 Yoli Domingo Plan Of Treatment No Information Progress Notes * Nanette DAVALOS NDOB: 3 (29 yo F)Acc No.[id number]:10/04/2024 Patient: Nanette RUBIO Audrey :1995 A ge:29 Y S ex:Female Address:[address] [place], [address] * true * Date: Generated for Printi ng/Faxing/eTransmitting on: 0 01/16/2025 12:44 PM EDT
--- OUTSIDE RECORDS SUMMARY | 2024-10-05 09:00 | XMS_ITS ---
Author Organization [facility] [place] Address [address] [place] [address] Care Team Providers Care Grain Elevator Agent Name Role Phone Yoli Domingo Primary Care Provider Allergies Allergen (clinical drug ingredient) Drug/Non Drug Allergy documented on EMR Reaction Allergy Type Onset Date Status Substance with sulfonamide structure and antibacterial mechanism of action (substance) Sulfa Antibiotics rash Drug Allergy Active REASON FOR VISIT Presents to office with family for follow up on Effexor. Would like medication changed to Lexapro. Said the Effexor makes her feel sick Medications Medication SIG (Take, Route, Frequency, Duration) Notes Start Date End Date Status Lexapro 10 MG 1 tablet Orally Once a day for 30 days 10/05/2024 Active Azithromycin 250 MG as directed Orally daily for 5 days take 2 tablets po on first day than 1 tablet po days 2-5 10/05/2024 Active Ondansetron HCl 4 MG 1 tablet Orally BID prn for 10 days 08/24/2024 Active Social History Tobacco Use: Social History Observation Description Date Details (start date - stop date) Current Smoker 06/21/2006 - NA Tobacco Use/Smoking Question Answer Notes Patient is a current smoker When did you start smoking? 06/21/2006 How often do you smoke cigarettes? every day How soon after you wake up do you smoke your fir st cigarette? within 5 minutes Are you interested in quitting? Ready to quit AUDIT-C (Standard) Question Answer Notes Did you have a drink containing alcohol in the p ast year? No Points 0 Interpretation Negative Problems Problem Type SNOMED Code ICD Code Onset Dates Problem Status W/U Status Risk Notes Problem Sinusitis (96355758) Sinusitis (J32.9) Active confirmed Vital Signs Weight 139.8 lbs 10/05/2024 Height 64 in 10/05/2024 Blood pressure systolic 122 mm Hg 10/06/19 25 Blood pressure diastolic 62 mm Hg 025 BMI 23.99 kg/m2 10/05/2024 Encounters Encounter Location Date Provider Diagnosis [facility] [address] [place] [address] 10/05/2024 Yoli Domingo Sinusitis J32.9 and Anxiety and depression F41.9 Assessments Encounter Date Diagnosis (ICD Code) Assessment Notes Treatment Notes Treatment Clinical Notes Section Notes 10/05/2024 Sinusitis (ICD-10 - J32.9) 10/05/2024 Anxiety and depression (ICD-10 - F41.9) fu one month states looking into fu with a psychiatrist Plan Of Treatment Medication Medication Name Sig Start Date Stop Date Notes Lexapro 10 MG 1 tablet Orally Once a day for 30 days 10/05/2024 Effexor XR 37.5 MG 1 capsule with food Orally Once a day 08/22/2024 Azithromycin 250 MG as directed Orally daily for 5 days 10/05/2024 take 2 tablets po on first day than 1 tablet po days 2-5 Treatment Notes Assessment Notes Anxiety and depression fu one month states looking into fu with a psychiatrist Next Appt Details Follow Up: 4 Weeks,prn, Reas on: Progress Notes * Nanette DAVALOS NDOB: [birth year] (29 yo F)Acc No.[id number]:10/05/2024 Progress Note Patient: Nanette RUBIO N Provider: Chelsey Domingo ([facility]), AUTOMATED MANUFACTURING INSTRUCTOR :1995 A ge:29 Y S ex:Female Date:10/05/2024 Address:[facility] GUILLERMINA WEBB, SHAY[address] Mckay [facility] Check In:01:05 PM ESTCheck O ut:01:19 PM EST Subjective: * Chief Complaints: * 1 . Presents to office with family for follow up on Effexor. Would like medication changed to Lexapro. Said the Effexor makes her feel sick. * HPI: G eneral: sinus issues for 2 weeks not getting better headaches now with cough also no ST wants to try lexapro. * ROS: G eneral/Constitutional: Anxiety a dmits. D epression a dmits. F ever d enies. H eadache s ome. W eight loss d enies. O phthalmologic: Discharge d enies. E ye Pain d enies. I tching and redness d enies. E NT: Nasal discharge d enies. N honey congestion a dmits and pain pressure. S ore throat d enies. C ardiovascular: Chest tightness/ heavy pressure d enies. R apid heart rate d enies. S welling of extremities d enies. C hest pain d enies. ? R espiratory: Productive cough d enies. C hest pain d enies. C ough d enies. S hortness of breath d enies. W heezing d enies. ? G astrointestinal: Abdominal pain d enies. C onstipation d enies. D ecreased appetite d enies. D iarrhea d enies. N ausea d enies. V omiting?denies. G enitourinary: Urinary incontinence d enies. P ainful urination d enies. M usculoskeletal: Back pain d enies. N pedro pain d enies. M uscle aches d enies. S kin: Rash d enies. S kin lesion(s) d enies. ? * Active Problem List A60.00 Genital herpes Modified On:04/09/2023/U Status:confirmed J21.9 Acute bronchiolitis Modified On:04/09/2023/U Status:confirmed R53.83 Fatigue Modified On:12/20/2023/U Status:confirmed F41.9 Anxiety and depressi on Modified On:12/31/2023/U Status:confirmed G47.00 Insomnia Modified On:12/31/2023/U Status:confirmed J32.9 Sinusitis Modified On:10/05/2024/U Status:confirmed * Medical History: G enital herpes, Bacterial vaginosis, Coxsackie virus infection. * Surgical History: T ubal ligation . * Hospitalization/Major Diagno stic Procedure: s ee above . * Family History: F ather: alive, diagnosed with Unspecified essential hypertension. M other: , from PE, diagnosed with Diabetes mellitus without mention of complication, type II or unspecified type, not stated as uncontrolled. S ister(s): alive. S on(s): alive. D sukumar(s): alive. 1 sister(s) - healthy. 1 son(s) , 1 daughter(s) - healthy. . uncle and grandpa from Lung ca. * Social History: T obacco Use: T obacco Use/Smoking P atient is a c urrent smoker W hen did you start smoking? 0 06/21/2006 H ow often do you smoke cigarettes? e very day H ow soon after you wake up do you smoke your first cigarette? w ithin 5 minutes A re you interested in quitting? R claudia to quit D rug/Alcohol: A CHIN-C (Standard) D id you have a drink containing alcohol in the past year? N o P oints 0 I nterpretation N egative * Medications: T aking Ondansetron HCl 4 MG Tablet 1 tablet Orally BID prn , Not-Taking/PRN Effexor XR(Venlafaxine HCl ER) 37.5 MG Capsule Extended Release 24 Hour 1 capsule with food Orally Once a day , Medication List reviewed and reconciled with the patient * Allergies: S ulfa Antibiotics: rash. Objective: * Vitals: W t:139.8lbs, Ht: 64 in, BP:122/62mm Hg, BMI:23.99Index, Ht-cm: 162.56 cm, Wt-k.41 kg. * Examination: G eneral Examinations: GENERAL APPEARANCE: a lert and oriented, i n no acute distress. EYES: c onjunctiva normal, sclera non-icteric. NOSE: m ild congestion. LUNGS: c lear to auscultation bilaterally. CARDIO: r egular rate and rhythm, S1, S2 normal. ABDOMEN: s oft, nontender. MUSCULOSKELETAL: G ait and station normal. SKIN: w arm and dry. Assessment: * Assessment: 1. S inusitis - J32.9 (Primary) 2 . A nxiety and depression - F41.9 ? Plan: * Treatment: 2. A nxiety and depression Stop Effexor XR Capsule Extended Release 24 Hour, 37.5 MG, 1 capsule with food, Orally, Once a day;?Start Lexapro Tablet, 10 MG, 1 tablet, Orally, Once a day, 30 days, 30, Refills 5. Notes: fu one month states looking into fu with a psychiatrist * Preventive Medicine: Screenings/Counseling: T OBACCO ACTION PLAN Patient counselled on the dangers of tobacco use and urged to quit. 0 10/05/2024 . * Follow Up: 4 Weeks,prn * * Electronically signed by Karuna Domingo , MICHAEL, ELECTRICAL DESIGN TECHNICIAN.AUTOMATED MANUFACTURING INSTRUCTOR.[id number] on 10/06/2024 at 10:50 AM EDT Sign off status: Completed Visit Status: C HK (Check Out) true * Provider: Chelsey Domingo ([facility]), AUTOMATED MANUFACTURING INSTRUCTOR Date: 0 10/05/2024 Generated for Oliver barnes/Ene/Sydneyransmitting on: 0 01/16/2025 12:44 PM EDT History and Physical Notes * HPI (History of Present Illness) Category Sub-Category Detail Notes Category Not es General sinus issues for 2 weeks not getting better headaches now with cough also no ST wants to try lexapro Examination Category Sub-Category Detail Notes Category Not es General Examinations GENERAL APPEARANCE: alert a nd oriented, in no acute distress EYES: conjunctiva normal, sclera non-icteric EARS: NOSE: mild congestion THROAT: CARDIO: regular rate and rhy thm, S1, S2 normal LUNGS: clear to auscultatio n bilaterally ABDOMEN: soft, nontender SKIN: warm and dry BACK: MUSCULOSKELETAL: Gait and station nor mal LYMPH NODES:
--- OUTSIDE RECORDS SUMMARY | 2024-11-10 06:49 | XMS_ITS ---
Author Organization The [facility] [place] Address [address] [place] [address] Care Team Providers Care Commissioner Of Internal Revenue Name Role Phone Yoli Domingo Primary Care Provider [phone] REASON FOR VISIT 1 mo fu- Encounters Encounter Location Date Provider Diagnosis [facility] [address] [place] [address] 11/10/2024 Yoli Domingo Plan Of Treatment No Information Progress Notes * Nanette DAVALOS NDOB: [birth year] (29 yo F)Acc No.[id number]:11/10/2024 Patient: Nanette RUBIO Audrey :1995 A ge:29 Y S ex:Female Address:[address] [place], [address] * true * Date: Generated for Printi ng/Faxing/eTransmitting on: 0 01/16/2025 12:45 PM EDT
[2025-01-16 12:39] VITALS: BP 105/79; PULSE 76; TEMP 36.7; O2SAT 98; BMI 25.0
--- NOTE | 2025-01-16 12:43 | XR_ITS ---
[facility] [place] [id number] Patient Name: MICHAEL SEQUEIRA MRN: [id number] date: 1995 Sex: F Assigned Patient Location: ED.MAIN Current Patient Location: ED.MAIN Accession/Order Number: [id number] Exam Date: 01/16/2025 13:11 Report Date: 01/16/2025 13:13 At the request of: ANDREA NAVA MD Procedure: XR ankle RT min 3V XR ankle RT min 3V 01/16/2025 1:07 PM SIGNS AND SYMPTOMS: ^ test pending ^Pain since twisting in September PROTOCOL: Frontal, lateral, and oblique radiographs of the right ankle COMPARISON: None FINDINGS: The ankle mortise is preserved. There is no evidence of fracture or dislocation. There is mild nonspecific soft tissue swelling laterally. XR/XR ankle RT min 3V IMPRESSION: No fracture or dislocation. Mild lateral soft tissue swelling is noted. Impression dictated by: Nitesh Garcia M.D. 01/16/2025 1:13 PM Dictation Location: [place] [address] Electronically authenticated by: [id number] Y Date: 01/16/2025 13:13
--- NOTE | 2025-01-16 12:43 | ED.GENADUL1 ---
HPI HPI - General Adult General Chief complaint: Extremity Injury, Lower Stated complaint: LOWER EXTREMITY PAIN Time Seen by Provider: 01/16/25 12:39 Source: patient Mode of arrival: walk-in Limitations: no limitations History of Present Illness HPI narrative: 29-year-old female presents for pain in her right ankle. She has had this pain in the lateral malleolus since September when she twisted it in a bed frame while having sex. The medial malleolus does not hurt. Yesterday was the first day she had been to work since September and she was on her feet all day and it has been hurting more. It has been hurting every day since September and she has not had it looked at. Related Data Home Medications ?Medication ?Instructions ?Recorded ?Confirmed bupropion HCl 150 mg 24 hr tablet, mg PO 01/16/25 extended release buspirone 7.5 mg tablet mg 01/16/25 dextromethorphan IR 45 PO 01/16/25 mg-bupropion ER 105 mg biphasic tablet (Auvelity) gabapentin 100 mg capsule mg 01/16/25 mirtazapine 15 mg tablet mg 01/16/25 Previous Rx's ?Medication ?Instructions ?Recorded clindamycin HCl 300 mg capsule 300 mg PO Q6H 7 days #28 caps 08/20/24 ibuprofen 600 mg tablet 600 mg PO QID PRN pain 7 days #28 08/20/24 tabs Allergies Allergy/AdvReac Type Severity Reaction Status Date / Time Sulfa (Sulfonamide Allergy Hives Verified 01/16/25 12:37 Antibiotics) Review of Systems ROS Narrative A ten point review of systems is negative except as noted above. PFSH PFSH Social History Little interest or pleasure in doing things: not at all Feeling down, depressed, or hopeless: not at all Exam Narrative Exam Narrative: Nurses note and vital signs reviewed and patient is not hypoxic. General: The patient appears well and in no apparent distress. Patient is resting comfortably on cart. Skin: Warm, dry, no pallor noted. There is no rash noted. Head: Normocephalic, atraumatic Eye: Normal conjunctiva, no drainage Ears, Nose, Mouth, and Throat: oral mucosa is moist. Nares patent. Cardiovascular: Regular Rate and Rhythm Respiratory: Patient is in no distress, no accessory muscle use Back: non-tender GI: Normal bowel sounds, no tenderness to palpation, no masses appreciated. No rebound, guarding, or rigidity noted. Musculoskeletal: Her right ankle is examined. There is maybe some minimal swelling over the lateral malleolus. Skin intact. No bruising. No tenderness in the medial malleolus or in the foot itself including the fifth metatarsal region. Dorsalis pedis pulse 2+. Neurological: A&O, normal speech Psychiatric: Cooperative Constitutional Vital Signs, click to edit/add: Last Vital Signs Temp 98.0 F 01/16/25 12:39 Pulse 76 01/16/25 12:39 Resp 18 01/16/25 12:39 BP 105/79 01/16/25 12:39 Pulse Ox 98 01/16/25 12:39 O2 Del Method Room Air 01/16/25 12:39 Course Vital Signs Vital signs: Vital Signs Temperature 98.0 F 01/16/25 12:39 Pulse Rate 76 01/16/25 12:39 Respiratory Rate 18 01/16/25 12:39 Blood Pressure 105/79 01/16/25 12:39 Pulse Oximetry 98 01/16/25 12:39 Oxygen Delivery Method Room Air 01/16/25 12:39 Temperature 98.0 F 01/16/25 12:39 Pulse Rate 76 01/16/25 12:39 Respiratory Rate 18 01/16/25 12:39 Blood Pressure 105/79 01/16/25 12:39 Pulse Oximetry 98 01/16/25 12:39 Oxygen Delivery Method Room Air 01/16/25 12:39 Medical Decision Making MDM Narrative Medical decision making narrative: test is negative. X-ray shows soft tissue swelling but no fractures. She is referred to podiatry. Treatment diagnosis and follow-up were discussed with the patient. Differential Diagnosis Differential Diagnosis: Ankle sprain, ankle fracture Lab Data Lab results reviewed: Yes I reviewed the patient's lab results Labs: Lab Results 01/16/25 Range/Units 12:55 Urine HCG, Qual Negative (NEGATIVE) Imaging Data Right ankle x-ray: Radiologist's impression: ITS Impressions Ankle X-Ray 01/16/25 12:43 IMPRESSION: No fracture or dislocation. Mild lateral soft tissue swelling is noted. Impression dictated by: Nitesh Garcia M.D. 01/16/2025 1:13 PM Dictation Location: [facility] ([facility]) Electronically authenticated by: [id number] Y Date: 01/16/2025 13:13 Discharge Plan Discharge Chief Complaint: Extremity Injury, Lower Clinical Impression: Right ankle sprain Patient Disposition: Home, Self-Care Time of Disposition Decision: 13:19 Condition: Good Mode of Transportation: Private Vehicle Prescriptions / Home Meds: No Action clindamycin HCl 300 mg capsule 300 mg PO Q6H 7 Days Qty: 28 0RF ibuprofen 600 mg tablet 600 mg PO QID PRN (Reason: pain) 7 Days Qty: 28 0RF buspirone 7.5 mg tablet mirtazapine 15 mg tablet gabapentin 100 mg capsule bupropion HCl 150 mg tablet extended release 24 hr PO Auvelity 45-105 mg tablet, IR and ER, biphasic PO Print Language: Icelandic Instructions: Ankle Sprain (ED) Referrals: LUZ ZAPATA [Primary Care Provider, Family Practice] - As needed Amari Carreno DPM [Physician, Podiatry]
--- OUTSIDE RECORDS SUMMARY | 2025-01-16 12:45 | XMS_ITS | Encounter Summary ---
Author Organization [facility] Address [address] [place] [address] Care Team Providers Care Steel Estimator Name Role Phone Gomez Card MD Primary Care Provider [phone] Edwina Youssef Unavailable Ronald Aguilar DO Unavailable Encounter Details Date Type Department Care Team (Late st Contact Info) Description 12/14/2023 Orders Only [facility] [address] [place] [address] Anna Hammond LPN [address] [facility] [address] [facility] Social History Tobacco Use Types Packs/Day Years Used Date Smoking Tobacco: Never Smokeless Tobacco: Never Alcohol Use Standard Drinks/Week Comments Never 0 (1 standard drink = 0.6 oz pur e alcohol) Comments No Sex and Gender Information Value Date Recorded Sex Assigned at Not on file Legal Sex Female 11:47 PM EDT Gender Identity Not on file Sexual Orientation Not on file documented as of this encounter Plan of Treatment Upcoming Encounters Date Type Department Care Team (Late st Contact Info) Description 03/13/2025 10:40 AM EDT Office Visit [facility] [address] [place] [address] Ronald Aguilar DO [address] [place], [place] [id number] documented as of this encounter Procedures Procedure Name Priority Date/Time Associated Diagnosis Comments PAP SMEAR Routine 12/07/2023 12:00 AM EDT documented in this encounter Results * Pap Smear (12/07/2023 12:00 AM EDT) Swab Cervical swab / Unknown [facility] LAB CYTOLOGY ORDERABLES Final Result EXTERNAL LAB documented in this encounter Visit Diagnoses Not on filedocumented in this encounter Care Teams Steel Estimator Relationship Specialty Start Date End Date Gomez Card MD PCP - General Family Medicine 11/03/23 Edwina Youssef PA [address] [place] [address] PCP - [facility] 03/21/24 Ronald Aguilar DO [address] [place] [address] PCP - [facility] 09/19/24 documented as of this encounter
--- OUTSIDE RECORDS SUMMARY | 2025-01-16 12:45 | XMS_ITS | Clinical Summary ---
Author Organization [facility] tem Address [id number] [address] [place] [address] Care Team Providers Care Content Production Specialist Name Role Phone Unavailable Primary Care Provider Unavailabl e Social History Tobacco Use Types Packs/Day Years Used Date Smoking Tobacco: Never Assessed Childcare Answer Date Recorded Childcare Unknown 11/28/2018 Employment Answer Date Recorded Employment Unknown 11/28/2018 Comments Unknown Sex and Gender Information Value Date Recorded Sex Assigned at Not on file Legal Sex Female 12:19 PM EDT Gender Identity Not on file Sexual Orientation Not on file Plan of Treatment Not on file Medical Devices Not on file
--- OUTSIDE RECORDS SUMMARY | 2025-01-16 12:45 | XMS_ITS | Patient Health Record ---
Author Organization [facility] [place] Address [address] [place] [address] Care Team Providers Care Flow Specialist Name Role Phone Yoli Domingo Primary Care Provider Stephie Best Laguna [phone] Allergies Allergen (clinical drug ingredient) Drug/Non Drug Allergy documented on EMR Reaction Allergy Type Onset Date Status Substance with sulfonamide structure and antibacterial mechanism of action (substance) Sulfa Antibiotics rash Drug Allergy Active Results Component Value Reference Range Notes COVID-19, Flu A+B IH (Not ye t reviewed by provider) Interpretation: Performing Lab: Notes/Report: COVID neg FLU A neg FLU B neg Control present SARS-CoV-2 Ag* Reviewed date:02/28/2024 09:01:32 PM Interpretation: Performing Lab: Notes/Report: [facility] , SARS-CoV-2 Ag NEGATIVE NEGATIVE CLIA that meet the requirements to perform moderate or high viruses or pathogens. The emergency use of this test is This test has not been FDA cleared or approved, but has been circumstances exist justifying the authorization of Act, 21 U.S.C. 360bbb-3(b)(1), unless the declaration is the detection of proteins from SARS-CoV-2, not for any other authorized for the duration of the declaration that emergency use of in vitro diagnostic tests for detection terminated or authorization is revoked sooner. (EUA) for use by authorized laboratories certified under authorized by the FDA under an Emergency Use Authorization and/or diagnosis of Covid-19 under section 564(b)(1) of the complexity testing. This test has been authorized only for Performing Lab: see note ML - [facility] SARS-CoV-2 Ag* Reviewed date:04/06/2024 08:41:04 AM Interpretation: Performing Lab: Notes/Report: [facility] , SARS-CoV-2 Ag NEGATIVE NEGATIVE (EUA) for use by authorized laboratories certified under the detection of proteins from SARS-CoV-2, not for any other authorized for the duration of the declaration that Act, 21 U.S.C. 360bbb-3(b)(1), unless the declaration is and/or diagnosis of Covid-19 under section 564(b)(1) of the authorized by the FDA under an Emergency Use Authorization terminated or authorization is revoked sooner. emergency use of in vitro diagnostic tests for detection complexity testing. This test has been authorized only for This test has not been FDA cleared or approved, but has been viruses or pathogens. The emergency use of this test is CLIA that meet the requirements to perform moderate or high circumstances exist justifying the authorization of Performing Lab: see note ML - [facility] INFLUENZA A AND B AG Reviewed date:04/06/2024 08:41:04 AM Interpretation: Performing Lab: Notes/Report: [facility] , Influenza Virus A Antigen Negative cannot be ruled out. Flu A antigen in the sample may be Negative for Flu A protein antigen. Infection due to Flu A below the detection limit of the test. Influenza Virus B Antigen Negative cannot be ruled out. Flu B antigen in the sample may be Negative for Flu B protein antigen. Infection due to Flu B below the detection limit of the test. Performing Lab: see note ML - [facility] Reason For Referral No Information Medications Medication SIG (Take, Route, Frequency, Duration) [...] you interested in quitting? Ready to quit Alcohol Screen (Audit-C) Question Answer Notes Did you have a drink contain ing alcohol in the past year? Yes How often did you have 6 or more drinks on one occasion in the past year? Never (0 point) How many drinks did you have on a typical day when you were drinking in the past year? 1 or 2 drinks (0 point) How often did you have a dri nk containing alcohol in the past year? Less than monthly (1 point) Points 1 Interpretation Negative AUDIT-C (Standard) Question Answer Notes Did you have a drink containing alcohol in the p ast year? No Points 0 Interpretation Negative Problems Problem Type SNOMED Code ICD Code Onset Dates Problem Status W/U Status Risk Notes Problem Fatigue (46286736) Fatigue (R53.83) Active confirmed Problem Insomnia (659197190) Insomnia (G47.00) Active confirmed Problem Sinusitis (91435791) Sinusitis (J32.9) Active confirmed Problem Genital herpes simplex (70469076) Genital herpes (A60.00) Active confirmed Problem Acute bronchiolitis (0433460) Acute bronchiolitis (J21.9) Active confirmed Problem Mixed anxiety and depressive disorder (700510175) Anxiety and depression (F41.9) Active confirmed Vital Signs Temperature 97.7 degrees Fahrenheit 08/24/2024 Blood pressure diastolic 62 mm Hg 10/05/2024 Height 64 in 10/05/2024 Blood pressure systolic 122 mm Hg 10/05/2024 Weight 139.8 lbs 10/05/2024 BMI 23.99 kg/m2 10/05/2024 Encounters Encounter Location Date Provider Diagnosis [facility] [address] [place] [address] 07/14/2024 Yoli Doimngo Anxiety and depression F41.9 [facility] [address] [place] [address] 08/22/2024 Yoli Domingo Anxiety and depression F41.9 [facility] [address] [place] [address] 08/24/2024 Yoli Domingo Myalgia M79.10 and Viral illness B34.9 [facility] [address] [facility] [address] 10/05/2024 Yoli Domingo Sinusitis J32.9 and Anxiety and depression F41.9 [facility] [address] [facility] [address] 02/09/2024 Yoli Domingo [facility] [address] [facility] [address] 02/28/2024 Yoli Domingo Acute cough R05.1 [facility] [address] [facility] [place] [address] 02/28/2024 Best Card [facility] [address] [facility] [address] 07/21/2024 Yoli Domingo [facility] [address] [facility] [address] 08/15/2024 Yoli Domingo [facility] [address] [facility] [address] 10/04/2024 Yoli Domingo [facility] [address] [facility] [address] 11/10/2024 Yoli Domingo Assessments Encounter Date Diagnosis (ICD Code) Assessment Notes Treatment Notes Treatment Clinical Notes Section Notes 07/14/2024 Anxiety and depression (ICD-10 - F41.9) consider counseling fu one month 08/22/2024 Anxiety and depression (ICD-10 - F41.9) contact [facility] for [employer] testing contact info given consider counseling fu one month 08/24/2024 Viral illness (ICD-10 - B34.9) supportive care rest, push fluids 08/24/2024 Myalgia (ICD-10 - M79.10) 10/05/2024 Sinusitis (ICD-10 - J32.9) 02/28/2024 Acute cough (ICD-10 - R05.1) 10/05/2024 Anxiety and depression (ICD-10 - F41.9) fu one month states looking into fu with a psychiatrist Plan Of Treatment Pending Test Test Name Order Date COVID-19, Flu A+B IH 08/24/2024 [facility] 02/28/2024 THYROID PROFILE WITH TSH 12/20/2023 Insurance Providers Payer Name Payer Address Payer Phone Subscriber Number Group Number Insured Name Patient Relationship to Insured Coverage Start Date Coverage End Date [employer] [place] [employer] [address] [place] [address] [id number] Nanette Davalos Self - patient is the insured 5 [place] [address] [place] OF [place], [place] [id number] Nanette Davalos Self - patient is the insured 4 5 Medical (General) History Medical History History ICD Code Genital herpes A60.00 Bacterial vaginosis 616.10 Coxsackie virus infection B34.1 Surgical History Surgery Date(Month/Year) Tubal ligation Hospitalization History Reason Date(Month/Year) see above
--- OUTSIDE RECORDS SUMMARY | 2025-01-16 12:45 | XMS_ITS | Clinical Summary ---
Author Organization [facility] Address [address] [facility] [place] [address] Care Team Providers Care Gis Web Developer Name Role Phone Gomez Card MD Primary Care Provider [phone] Ronald Aguilar DO Unavailable Allergies Active Allergy Reactions Criticality Noted Date Comments Sulfa Antibiotics Hives 03/29/2023 Medications propranolol (Inderal) 10 MG tablet Take 10 mg by mouth Active PARoxetine (Paxil) 20 MG tablet Take 20 mg by mouth in the morning. Active prazosin (Minipress) 5 MG capsule Take 5 mg by mouth at bedtime Active hydrOXYzine pamoate (Vistaril) 25 MG capsule Take 25 mg by mouth Active valACYclovir (Valtrex) 500 MG tabletIndicatio ns:Genital warts due to HPV (human papillomavirus) Take 1 tablet (500 mg) by mouth Daily 30 tablet 11 12/05/2024 Active Encounters Date Type Department Care Team Description 12/05/2024 1:30 PM EDT Procedure Visit [facility] [place] [facility] [address] [place] [address] [place] [address] Ronald Aguilar DO Genital warts due to HPV (human papillomavirus) from Last 3 Months Family History Medical History Relation Name Comments Heart disease Father Hypertension Father Mental illness Father Cancer Maternal Grandfather Heart disease Maternal Grandfather Hypertension Mother Mental illness Mother Cancer Paternal Grandfather Heart disease Paternal Grandfather Relation Name Status Comments Father Maternal Grandfather Mother Paternal Grandfather Social History Tobacco Use Types Packs/Day Years Used Date Smoking Tobacco: Never Smokeless Tobacco: Never Alcohol Use Standard Drinks/Week Comments Never 0 (1 standard drink = 0.6 oz pur e alcohol) Comments No Sex and Gender Information Value Date Recorded Sex Assigned at Not on file Legal Sex Female 11:47 PM EDT Gender Identity Not on file Sexual Orientation Not on file Last Filed Vital Signs Vital Sign Reading Time Taken Comments Blood Pressure 106/70 12/05/2024 1:45 PM EDT Pulse - - Temperature - - Respiratory Rate - - Oxygen Saturation - - Inhaled Oxygen Concentration - - Weight 64.6 kg (142 lb 8 oz) 12/05/2024 1:45 PM EDT Height 162.6 cm (5' 4 ) 12/07/2023 1:18 PM EDT Body Mass Index 24.46 12/07/2023 1:18 PM EDT Plan of Treatment Upcoming Encounters Date Type Department Care Team (Late st Contact Info) Description 03/13/2025 10:40 AM EDT Office Visit [facility] [address] [place] [address] Ronald Aguilar DO [address] [place], [place] [id number] Health Maintenance Due Date Last Done Comments HPV/Cotest 2023 Influenza Vaccine (#1) 2025 Cervical Cancer Screening 12/06/2026 Pap Smear 12/06/2026 12/07/2023, 03/17/2022 Procedures Procedure Name Priority Date/Time Associated Diagnosis Comments PAP SMEAR Routine 12/07/2023 12:00 AM EDT from Last 3 Months or Most Recently Relevant to Health Maintenance Results * Pap Smear (12/07/2023 12:00 AM EDT) Swab Cervical swab / Unknown us [facility] LAB CYTOLOGY ORDERABLES Final Result EXTERNAL LAB from Last 3 Months or Most Recently Relevant to Health Maintenance Insurance [employer] Care Teams Gis Web Developer Relationship Specialty Start Date End Date Gomez Card MD PCP - General Family Medicine 11/03/23 Ronald Aguilar DO [address] [place] [address] [place] [address] PCP - [facility] 09/19/24
--- NOTE | 2025-01-16 12:55 | PC.NURSE ---
urine sent to lab
[2025-01-16 12:59] LABS: HCG Qualitative Urine* NEGATIVE (NEGATIVE)
== END 2025-01-16 13:24 | disposition home or self-care (01) ==
PROVIDERS: Emergency Provider Emergency Medicine; PCP Nurse Practitioner Family
DX: S93.401A Sprain of unspecified ligament of right ankle, initial encounter (principal); M25.571 Pain in right ankle and joints of right foot
CPT/HCPCS: 73610; 84703; 99284

== ENCOUNTER → 2025-02-21 15:32 | Emergency (ER) | payer OTHER, SELFPAY ==
[2025-02-21 15:37] VITALS: BP 144/88; PULSE 109; TEMP 36.6; O2SAT 97; BMI 26.6
--- NOTE | 2025-02-21 16:02 | ED.GENADUL1 ---
HPI HPI - General Adult General Chief complaint: Upper Respiratory Infection Stated complaint: Upper Respiratory Infection Time Seen by Provider: 02/21/25 15:37 Source: patient Mode of arrival: walk-in Limitations: no limitations History of Present Illness HPI narrative: 29-year-old female presents with complaints of 3 days of nasal congestion, loose bowel movements greater than 3/day, headache, and nausea. She states she was unable to go to work on Wednesday. She is here today with her boyfriend who has had similar symptoms since this weekend. They do have a contact that tested positive for COVID. They did take a home test that was negative for COVID. She has been taking allergy medicines for her nasal congestion that have not helped and she is having trouble breathing at night. She also took a generic version of Imodium and her diarrhea has not stopped and she feels dehydrated. She has been having intermittent chills, but has not taken a temperature to confirm a fever. She denies any SOB, chest pain, or abdominal pain. Related Data Home Medications ?Medication ?Instructions ?Recorded ?Confirmed bupropion HCl 150 mg 24 hr tablet, mg PO 01/16/25 extended release buspirone 7.5 mg tablet mg 01/16/25 dextromethorphan IR 45 PO 01/16/25 mg-bupropion ER 105 mg biphasic tablet (Auvelity) gabapentin 100 mg capsule mg 01/16/25 mirtazapine 15 mg tablet mg 01/16/25 Previous Rx's ?Medication ?Instructions ?Recorded clindamycin HCl 300 mg capsule 300 mg PO Q6H 7 days #28 caps 08/20/24 ibuprofen 600 mg tablet 600 mg PO QID PRN pain 7 days #28 08/20/24 tabs Allergies Allergy/AdvReac Type Severity Reaction Status Date / Time Sulfa (Sulfonamide Allergy Hives Verified 01/16/25 12:37 Antibiotics) Review of Systems ROS Status of ROS 10 or more systems reviewed and unremarkable except as noted in history and below PFSH PFSH Social History Little interest or pleasure in doing things: not at all Feeling down, depressed, or hopeless: not at all Exam Narrative Exam Narrative: General: No distress, age-appropriate Skin: Warm, dry, no pallor. No rash. Head: Normocephalic, atraumatic. Neck: Supple, non-tender. Eye: Pupils are equal, round and EOMI. No scleral icterus. Ears, Nose, Mouth, and Throat: TM not visualized secondary to cerumen BL. No nasal mucosal hypertrophy. Oral mucosa is moist, no posterior oropharynx erythema, uvula is mid-line Cardiovascular: Regular Rate and Rhythm without murmur, gallop or rub. Respiratory: No accessory muscle use or respiratory distress. Lungs are clear to auscultation, no wheezing, rales or rhonchi Chest Wall: no tenderness Back: No midline thoracic or lumbar vertebral tenderness. Musculoskeletal: Full ROM of all extremities, no calf or popliteal tenderness GI: Abdomen is soft, non-distended, non tender to palpation. No masses appreciated. No rebound, guarding, or rigidity noted. Neurological: A&O x4. No cranial nerve dysfunction observed. No truncal ataxia. Moves all extremities. Sensation intact. Psychiatric: Cooperative and interactive. Normal mood and affect. Constitutional Vital Signs, click to edit/add: Last Vital Signs Temp 97.9 F 02/21/25 15:37 Pulse 83 02/21/25 16:45 Resp 18 02/21/25 15:37 BP 144/88 H 02/21/25 15:37 Pulse Ox 100 02/21/25 16:45 O2 Del Method Room Air 02/21/25 15:37 Course Reevaluation(s) Reevaluation #1: Patient's heart rate much improved since arrival, 83 now. 1 L normal saline completed. Patient negative for COVID, results given to patient. I did discuss that she could get [id number] Afrin to help with her nasal congestion to help her sleep. Use as directed on the box. Time: 17:12 Vital Signs Vital signs: Vital Signs Temperature 97.9 F 02/21/25 15:37 Pulse Rate 109 H 02/21/25 15:37 Respiratory Rate 18 02/21/25 15:37 Blood Pressure 144/88 H 02/21/25 15:37 Pulse Oximetry 97 02/21/25 15:37 Oxygen Delivery Method Room Air 02/21/25 15:37 Temperature 97.9 F 02/21/25 15:37 Pulse Rate 83 02/21/25 16:45 Respiratory Rate 18 02/21/25 15:37 Blood Pressure 144/88 H 02/21/25 15:37 Pulse Oximetry 100 02/21/25 16:45 Oxygen Delivery Method Room Air 02/21/25 15:37 Medical Decision Making [facility] Narrative Medical decision making narrative: 29-year-old female presented to the emergency department with complaints of 3 days of nasal congestion, headache, diarrhea, and nausea with a recent contact sick with COVID-19. She has been unable to go to work. She presents with her boyfriend who is also being seen for similar complaints. BP hypertensive with PMH of HTN but patient not currently on BP meds. HR mildy tachy at 109, non toxic appearing. IV placed, 1L NS ordered. Zofran 4mg ordered. COVID-19 test ordered. Patient negative for COVID?19. Abdominal exam without peritoneal signs. Doubt invasive bacteria causing diarrhea such as C diff (no recent antibiotics), shiga toxin (non bloody). No recent travel. Patient is not immunocompromised. Diarrhea is non bloody so less likely inflammatory bowel disease. No evidence of surgical abdomen or other acute medical emergency including bowel obstruction, viscus perforation, vascular catastrophe, atypical appendicitis, acute cholecystitis, UGIB, thyrotoxicosis, or diverticulitis at this time. Presentation not consistent with other acute, emergent causes of vomiting / diarrhea at this time. No indication for abdominal imaging. Patient's nausea improved with Zofran and heart rate improved with 1 L normal saline. We did discuss Afrin OTC to help with her nasal congestion, use as directed. She will return to the emergency department for any new or worsening symptoms. She will be discharged to home in good condition with close follow-up with a PCP. Differential Diagnosis Differential Diagnosis: Gastroenteritis, COVID-19, Viral syndrome Lab Data Labs: Lab Results 02/21/25 Range/Units 15:59 SARS-CoV-2 Ag (CV2AG) Negative (NEGATIVE) Discharge Plan Discharge Chief Complaint: Upper Respiratory Infection Clinical Impression: Viral infection Patient Disposition: Home, Self-Care Time of Disposition Decision: 17:01 Condition: Good Mode of Transportation: Private Vehicle Prescriptions / Home Meds: No Action clindamycin HCl 300 mg capsule 300 mg PO Q6H 7 Days Qty: 28 0RF ibuprofen 600 mg tablet 600 mg PO QID PRN (Reason: pain) 7 Days Qty: 28 0RF buspirone 7.5 mg tablet mirtazapine 15 mg tablet gabapentin 100 mg capsule bupropion HCl 150 mg tablet extended release 24 hr PO Auvelity 45-105 mg tablet, IR and ER, biphasic PO Print Language: Liberian Instructions: Viral Syndrome (ED) Additional Instructions: As we discussed you can buy Afrin Nasal [place] over the counter and use as directed on the box to help relieve your nasal congestion. Continue to push fluids by mouth. If you experience any new or worsening symptoms return to the emergency department. Follow-up with your primary care provider. Referrals: LUZ ZAPATA [Primary Care Provider, Family Practice] - 1 week
[2025-02-21] MEDS: 0.9 % SODIUM CHLORIDE 1,000 ML 999 ML IV (16:07)
[2025-02-21 16:19] LABS: SARS-CoV-2 Ag NEGATIVE (NEGATIVE)
[2025-02-21 16:45] VITALS: PULSE 83; O2SAT 100
[2025-02-21 17:25] VITALS: BP 120/73; PULSE 77; O2SAT 100
== END | disposition home or self-care (01) ==
PROVIDERS: Physician Assistant; Emergency Provider Student in an Organized Health Care Education/Training Program; PCP Nurse Practitioner Family
DX: B34.9 Viral infection, unspecified (principal); R09.81 Nasal congestion; R51.9 Headache, unspecified; R11.0 Nausea; R19.7 Diarrhea, unspecified
CPT/HCPCS: 87811; 96361; 96374; 99284; J2405